=== PATIENT | female | born 1955 | race Caucasian/White ===

== ENCOUNTER 2020-04-27 14:33 | Outpatient (REF) | payer MEDICARE, OTHER, SELFPAY ==
--- NOTE | 2020-04-27 14:46 | MR_ITS ---
EXAMINATION: MR BRAIN WITHOUT CONTRAST CLINICAL INFORMATION: Multiple sclerosis COMPARISON: 06/27/2016 TECHNIQUE: MRI of the brain was obtained using routine sequences without contrast. FINDINGS: Stable distribution of white matter T2 signal abnormalities throughout the supratentorial white matter, most concentrated along the callosal septal interface, extending into the white matter in a perivenular distribution (Savage's fingers), along with some juxtacortical involvement. There is slightly decreased size of a couple white matter signal abnormalities along the left callosal septal interface as seen on series 6, images 19 and 20, and series 5, image 10. No appreciable change in the remainder of the lesions. No infratentorial involvement. No abnormally restricted diffusion within the brain parenchyma. Ventricular system normal in size and configuration. No extra-axial collection. No intracranial blood products. Midline structures are normal. Major flow voids at the skull base are intact. Contents of the posterior fossa are normal. No marrow signal abnormalities. Visualized soft tissues unremarkable. Minimal mucosal thickening present within the ethmoid air cells and bilateral frontal sinuses. IMPRESSION: Again seen are findings compatible with multiple sclerosis. There are couple left pericallosal white matter lesions which appear slightly less conspicuous on the current examination, even accounting for slice selection.
== END 2020-04-27 14:34 | disposition home or self-care (01) ==
LOC: HO.MRI 14:33
PROVIDERS: PCP Internal Medicine; Visit Provider Psychiatry & Neurology Neurology
DX: G35 Multiple sclerosis (principal)
CPT/HCPCS: 70551

== ENCOUNTER 2020-05-28 10:24 | Outpatient (REF) | payer MEDICARE, OTHER, SELFPAY ==
[2020-05-28 14:51] LABS: Free T4 (Free Thyroxine) 0.83 ng/dL (0.71-1.85); Thyroid Stimulating Hormone 4.89 uIU/mL (0.32-4.0)
== END 2020-05-28 10:25 | disposition home or self-care (01) ==
LOC: HO.10HDL 10:24
PROVIDERS: Visit Provider Internal Medicine
DX: E03.9 Hypothyroidism, unspecified (principal)
CPT/HCPCS: 84439; 84443

== ENCOUNTER 2020-08-13 14:39 | Outpatient (REF) | payer MEDICARE, OTHER, SELFPAY ==
[2020-08-13 15:23] LABS: Influenza A PCR NEGATIVE (Negative); Influenza B PCR NEGATIVE (Negative); Resp Syncy Virus RNA Qual PCR NEGATIVE (Negative); SARS COV2 PCR INHOUSE NEGATIVE (Negative)
== END 2020-08-13 14:40 | disposition home or self-care (01) ==
LOC: HO.LNP 14:39
PROVIDERS: Visit Provider Internal Medicine
DX: R05 Cough (principal); R07.89 Other chest pain; Z20.822 Contact with and (suspected) exposure to COVID-19
CPT/HCPCS: 0241U

== ENCOUNTER 2020-08-28 11:51 | Outpatient (REF) | payer MEDICARE, OTHER, SELFPAY ==
[2020-08-28 13:36] LABS: MANUAL DIFF FLAG NO
[2020-08-28 13:52] LABS: Basophils Absolute Auto 0.1 X10*3/uL (0.0-0.2); Eosinophils Absolute Auto 0.2 X10*3/uL (0.0-0.4); Eosinophils Percent Auto 4.6 % (0-4); Hematocrit 40.2 % (37-47); Hemoglobin 13.2 g/dl (12.0-16.0); Imm Gran Abs Auto 0.01 X10*3/uL (0.00-0.03); Imm Gran Pct Auto 0.2 % (0.0-0.4); Lymphocytes Absolute Auto 0.8 X10*3/uL (1.2-4.9); Lymphocytes Percent Auto 17.2 % (20-40); Mean Corpuscular HGB Conc 32.8 g/dl (31.0-35.0); Mean Corpuscular Hemoglobin 31.1 pg (27.0-33.0); Mean Corpuscular Volume 94.6 fL (80-98); Mean Platelet Volume 10.3 fL (9.4-12.3); Monocytes Absolute Auto 0.3 X10*3/uL (0.1-1.2); Neutrophils Absolute Auto 3.4 X10*3/uL (2.0-8.3); Platelet Count 242 X10*3/uL (160-400); Red Blood Count 4.25 X10*6/uL (4.20-5.50); Red Cell Distribution Width 13.3 % (11.0-16.0); White Blood Count 4.8 X10*3/uL (4.8-10.8)
[2020-08-28 14:33] LABS: Alanine Aminotransferase 39 U/L (0-31); Albumin Level 4.5 g/dL (3.5-5.0); Alkaline Phosphatase 74 U/L (39-117); Anion Gap 11 (12-20); Aspartate Amino Transferase 26 U/L (5-31); Bilirubin Total 0.6 mg/dL (0.0-1.0); Blood Urea Nitrogen 21 mg/dL (9-16); Carbon Dioxide 29 mmol/L (22-29); Chloride 107 mmol/L (96-108); Estimated Glomerular Filt Rate > 60; Glucose Random 92 mg/dL (60-115); Potassium 4.1 mmol/L (3.3-5.1); Sodium 143 mmol/L (135-145)
[2020-08-28 14:38] LABS: Thyroid Stimulating Hormone 2.09 uIU/mL (0.32-4.0)
== END 2020-08-28 11:52 | disposition home or self-care (01) ==
LOC: HO.10HDL 11:51
PROVIDERS: Visit Provider Internal Medicine
DX: E03.9 Hypothyroidism, unspecified (principal); G35 Multiple sclerosis; R25.1 Tremor, unspecified
CPT/HCPCS: 36415; 80053; 84439; 84443; 85025

== ENCOUNTER 2020-09-04 10:10 | Day surgery (SDC) | payer MEDICARE, OTHER, SELFPAY ==
[2020-08-28 14:58] VITALS: BMI 41.4
[2020-09-01 10:02] VITALS: BMI 41.4
--- NOTE | 2020-09-03 10:30 | HO.ANESPROP2 ---
Documented by User: Dina Wells 09/03/20 10:31 HPI - Anesthesia Eval Consult details Narrative: 65yo F for Colonoscopy [facility] Past Medical History Medical History Arthritis Asthma Back pain Bronchitis Cough Depression GERD (gastroesophageal reflux disease) History of postoperative nausea Hx of degenerative disc disease Hx of fall Hx of motion sickness Multiple sclerosis Sleep apnea Thyroid disease Surgical History Surgical History H/O colonoscopy Hx of appendectomy Hx of dilation and curettage Hx of hysterectomy Hx of tonsillectomy Social History Social History (Updated 09/01/20 @ 10:10 by Darshana Aquino) Are you a primary home health care social worker to a significant other at home: No Do you presently have visiting nurse or other home services: No Smoking Status: Former smoker Smoked in Last 30 Days: No Smoking Quit Date: 1985 Use of substances other than those prescribed or required for medical reasons: No Have you been hit, kicked, punched, or otherwise hurt by someone within the past year? If so, by whom?: No Advance Directives Information Provided: No Recently lost weight without trying: No Meds Allergies Allergy/AdvReac Type Severity Reaction Status Date / Time erythromycin base Allergy Severe Nausea and Verified 09/01/20 10:10 Vomiting Penicillins Allergy Severe Anaphylaxis Verified 09/01/20 10:10 ivory soap AdvReac Intermediate skin Uncoded 09/01/20 10:11 sloughing Home Medications Medication Instructions Recorded Confirmed Last Taken Type bupropion HCl 150 mg PO BID 08/28/20 08/28/20 Unknown History cyclobenzaprine 10 mg PO BEDTIME PRN 08/28/20 08/28/20 Unknown History escitalopram oxalate 20 mg PO QAM 08/28/20 08/28/20 Unknown History gabapentin 300 mg PO BID 08/28/20 08/28/20 Unknown History levothyroxine 50 mcg PO DAILY 08/28/20 09/04/20 09/04/20 10:00 History multivitamin 1 tab PO DAILY 08/28/20 08/28/20 Unknown History trazodone 50 mg PO BEDTIME PRN 08/28/20 08/28/20 Unknown History Exam Exam Date and Time: September 03, 2020 1030 Height,Weight and Vital Signs: Height 5 ft 3 in Weight 106.141 kg Pertinent Lab Results Pertinent Lab Results: Laboratory Tests 08/28/20 08/28/20 12:00 12:00 WBC 4.8 Hgb 13.2 Hct 40.2 Plt Count 242 Sodium 143 Potassium 4.1 Chloride 107 Carbon Dioxide 29 BUN 21 H Creatinine 0.90 Assessment and Plan Assessment Anesthesia Assessment: Chart Reviewed Documented by User: Leonor Rojas 09/04/20 10:58 PMF Past Medical History Medical History Arthritis Asthma Back pain Bronchitis Cough Depression GERD (gastroesophageal reflux disease) History of postoperative nausea Hx of degenerative disc disease Hx of fall Hx of motion sickness Multiple sclerosis Sleep apnea Thyroid disease Surgical History Surgical History H/O colonoscopy Hx of appendectomy Hx of dilation and curettage Hx of hysterectomy Hx of tonsillectomy Social History Social History (Updated 09/01/20 @ 10:10 by Darshana Aquino) Are you a primary home health care social worker to a significant other at home: No Do you presently have visiting nurse or other home services: No Smoking Status: Former smoker Smoked in Last 30 Days: No Smoking Quit Date: 1985 Use of substances other than those prescribed or required for medical reasons: No Have you been hit, kicked, punched, or otherwise hurt by someone within the past year? If so, by whom?: No Advance Directives Information Provided: No Recently lost weight without trying: No Meds Allergies Allergy/AdvReac Type Severity Reaction Status Date / Time erythromycin base Allergy Severe Nausea and Verified 09/01/20 10:10 Vomiting Penicillins Allergy Severe Anaphylaxis Verified 09/01/20 10:10 ivory soap AdvReac Intermediate skin Uncoded 09/01/20 10:11 sloughing Home Medications Medication Instructions Recorded Confirmed Last Taken Type bupropion HCl 150 mg PO BID 08/28/20 08/28/20 Unknown History cyclobenzaprine 10 mg PO BEDTIME PRN 08/28/20 08/28/20 Unknown History escitalopram oxalate 20 mg PO QAM 08/28/20 08/28/20 Unknown History gabapentin 300 mg PO BID 08/28/20 08/28/20 Unknown History levothyroxine 50 mcg PO DAILY 08/28/20 09/04/20 09/04/20 10:00 History multivitamin 1 tab PO DAILY 08/28/20 08/28/20 Unknown History trazodone 50 mg PO BEDTIME PRN 08/28/20 08/28/20 Unknown History Exam Airway Mallampati Class: I TM Dist: >3cm Neck ROM: Full Denture: Upper Loose/Missing/Broken Teeth: Yes (Edentullus upper) Heart: RRR Lungs: CTA Assessment and Plan Assessment Anesthesia Assessment: Anesthesia Plan Discussed and Chart Reviewed Final Anesthetic Review NPO: Yes ASA Class: III Final Preanesthetic Review: Meds/Allgs Chart Reviewed, Consent Obtained/Reviewed and Anes Risks/Benef Reviewed Patient Risk: Intermediate Procedure Risk: Low Anesthetic Plan Anesthetic Plan: MAC: Disposition: Standard PACU
[2020-09-04 10:42] VITALS: BP 142/92; PULSE 76; RESP 16; TEMP 36.1; O2SAT 95
[2020-09-04] MEDS: Lactated Ringers 1,000 ML 100 ML IVCONT (10:48)
[2020-09-04 12:38] VITALS: BP 128/71; PULSE 64; RESP 16; TEMP 36; O2SAT 97
--- NOTE | 2020-09-04 12:42 | PM.OP ---
Brief Operative Note Date of Service: 09/04/20 Pre-op diagnosis: Screening Post-op diagnosis: other (Diverticulosis, Internal hemorrhoids) Procedure: Colonoscopy to the cecum and TI Surgeon: Moe Christianson Anesthesia: MAC Estimated blood loss (mL): 0 Pathology: none sent Condition: stable Disposition: PACU
[2020-09-04 12:53] VITALS: BP 113/62; PULSE 63; RESP 12; TEMP 36; O2SAT 96
--- NOTE | 2020-09-04 13:06 | OP_ITS ---
SURGEON: Moe hCristianson MD INDICATIONS: The patient presents for evaluation of colorectal cancer screening, previous history of tubular adenoma of the colon, and family history of colon cancer. Full consent was obtained from her for this, including risks of bleeding and perforation. PREOPERATIVE DIAGNOSIS: POSTOPERATIVE DIAGNOSIS: PROCEDURE PERFORMED: Colonoscopy to cecum and terminal ileum. ESTIMATED BLOOD LOSS: COMPLICATIONS: ANESTHESIA: Monitored anesthesia care. ASSISTANTS: SPECIMENS: PREOPERATIVE DIAGNOSES: Colorectal cancer screening, personal history of tubular adenoma of the colon, and family history of colon cancer. POSTOPERATIVE DIAGNOSES: Colorectal cancer screening, personal history of tubular adenoma of the colon, family history of colon cancer, diverticulosis, and internal hemorrhoids. DESCRIPTION OF PROCEDURE: The patient was placed in the left lateral decubitus position. The digital rectal exam revealed no abnormalities. The Olympus video pediatric colonoscope was entered into the rectum and advanced to the cecum with the assistance of abdominal wall pressure. Once in the cecum, I did identify normal-appearing cecal pouch with appendiceal orifice and a normal-appearing ileocecal valve. The terminal ileum was cannulated and it appeared normal. The scope was withdrawn back in the colon. The entire cecum and ileocecal valve appeared normal. The scope was slowly withdrawn assessing all mucosal surfaces carefully. Preparation was excellent. I did not visualize any sign of polyps, colitis, or angiodysplasia. There was a mild amount of sigmoid diverticulosis. In the rectum, the scope was retroflexed visualizing internal hemorrhoids, but no other pathology. The rectal mucosa appeared normal. The scope was straightened and withdrawn from the patient. She tolerated the procedure well and was returned to the recovery area in stable condition. IMPRESSION: 1. Diverticulosis. 2. Internal hemorrhoids. PLAN: Given her previous history and family history, I would recommend a followup colonoscopy in 5 years for further screening. She will otherwise see me on a p.r.n. basis. Moe Christianson MD RMW/PRAVEENL / [id number]
== END 2020-09-04 13:41 | disposition home or self-care (01) ==
PROVIDERS: PCP Internal Medicine; Visit Provider Internal Medicine
PROC: 0DJD8ZZ Inspection of Lower Intestinal Tract, Via Natural or Artificial Opening Endoscopic (ICD-10-PCS; CPT 45378; principal; 2020-09-04 11:10)
DX: Z12.11 Encounter for screening for malignant neoplasm of colon (principal); Z86.010 Personal history of colon polyps; Z80.0 Family history of malignant neoplasm of digestive organs; K57.30 Diverticulosis of large intestine without perforation or abscess without bleeding; K64.8 Other hemorrhoids; K21.9 Gastro-esophageal reflux disease without esophagitis; G35 Multiple sclerosis; J45.909 Unspecified asthma, uncomplicated; G47.30 Sleep apnea, unspecified; F32.9 Major depressive disorder, single episode, unspecified; Z87.891 Personal history of nicotine dependence; Z79.899 Other long term (current) drug therapy
CPT/HCPCS: G0105

== ENCOUNTER 2020-11-27 12:40 | Outpatient (REF) | payer MEDICARE, OTHER, SELFPAY ==
[2020-11-27 13:58] LABS: MANUAL DIFF FLAG NO
[2020-11-27 14:03] LABS: Basophils Percent Auto 0.9 % (0-2); Eosinophils Absolute Auto 0.4 X10*3/uL (0.0-0.4); Eosinophils Percent Auto 7.9 % (0-4); Hematocrit 38.5 % (37-47); Imm Gran Abs Auto 0.01 X10*3/uL (0.00-0.03); Imm Gran Pct Auto 0.2 % (0.0-0.4); Lymphocytes Percent Auto 22.7 % (20-40); Mean Corpuscular HGB Conc 33.8 g/dl (31.0-35.0); Mean Corpuscular Hemoglobin 30.9 pg (27.0-33.0); Mean Corpuscular Volume 91.4 fL (80-98); Mean Platelet Volume 10.6 fL (9.4-12.3); Monocytes Absolute Auto 0.3 X10*3/uL (0.1-1.2); Neutrophils Absolute Auto 2.8 X10*3/uL (2.0-8.3); Neutrophils Percent Auto 61.3 % (45-73); Platelet Count 209 X10*3/uL (160-400); Red Blood Count 4.21 X10*6/uL (4.20-5.50); Red Cell Distribution Width 12.9 % (11.0-16.0); White Blood Count 4.5 X10*3/uL (4.8-10.8)
[2020-11-27 14:36] LABS: Alanine Aminotransferase 25 U/L (0-31); Albumin Level 4.4 g/dL (3.5-5.0); Alkaline Phosphatase 69 U/L (39-117); Anion Gap 12 (12-20); Aspartate Amino Transferase 18 U/L (5-31); Bilirubin Total 0.6 mg/dL (0.0-1.0); Blood Urea Nitrogen 24 mg/dL (9-16); C Reactive Protein 0.88 mg/dL (< or = 0.50); Calcium 9.3 mg/dL (8.4-10.2); Carbon Dioxide 28 mmol/L (22-29); Chloride 105 mmol/L (96-108); Estimated Glomerular Filt Rate > 60; Glucose Random 88 mg/dL (60-115); Potassium 4.1 mmol/L (3.3-5.1); Sodium 141 mmol/L (135-145); Total Protein 6.6 g/dL (6.5-8.0)
[2020-11-27 14:41] LABS: Free T4 (Free Thyroxine) 1.07 ng/dL (0.71-1.85); Thyroid Stimulating Hormone 0.96 uIU/mL (0.32-4.0)
== END 2020-11-27 12:41 | disposition home or self-care (01) ==
LOC: HO.10HDL 12:40
PROVIDERS: Visit Provider Internal Medicine
DX: E03.9 Hypothyroidism, unspecified (principal); R19.7 Diarrhea, unspecified; M54.9 Dorsalgia, unspecified; G35 Multiple sclerosis
CPT/HCPCS: 36415; 80053; 84439; 84443; 85025; 86140

== ENCOUNTER 2020-12-22 10:32 | Outpatient (REF) | payer MEDICARE, OTHER, SELFPAY ==
--- NOTE | ~2020-12-22 | XR_ITS ---
EXAMINATION: XR KNEE, LEFT CLINICAL INFORMATION: Left knee pain. COMPARISON: Left knee radiographs dated 09/18/2015. TECHNIQUE: Four views of the left knee. FINDINGS: Mild medial compartment joint space narrowing with tiny marginal osteophytes, unchanged. No acute fracture or dislocation. No osseous erosion. No significant joint effusion. No abnormal soft tissue calcification. XR/XR knee LT 4V IMPRESSION: Mild medial compartment arthrosis, unchanged.
--- NOTE | ~2020-12-22 | XR_ITS ---
EXAMINATION: XR LUMBOSACRAL SPINE CLINICAL INFORMATION: Back pain. COMPARISON: Lumbar spine MRI dated 11/28/2015. TECHNIQUE: Three views of the lumbosacral spine. FINDINGS: Mild levocurvature of the lumbar spine. The lumbar lordosis is maintained. No acute fracture or subluxation. No loss of vertebral body height. Multilevel loss of intervertebral disc height with anterior endplate osteophytes, most prominent at L3-L4 and L4-L5. Prominent multilevel bilateral facet arthropathy. No lytic or blastic osseous lesion. Atherosclerotic calcifications. XR/XR lumbar spine 2-3V IMPRESSION: Moderate multilevel degenerative disc disease and bilateral facet arthropathy, most prominent at L3-L4 and L4-L5. Findings have progressed when compared to the prior MRI.
== END 2020-12-22 10:33 | disposition home or self-care (01) ==
LOC: HO.XRAY 10:32
PROVIDERS: PCP Internal Medicine; Visit Provider Internal Medicine
DX: M54.9 Dorsalgia, unspecified (principal); M25.562 Pain in left knee
CPT/HCPCS: 72100; 73564

== ENCOUNTER 2020-12-24 16:42 | Outpatient (REF) | payer MEDICARE, OTHER, SELFPAY ==
--- NOTE | ~2020-12-24 | MR_ITS ---
MR LUMBAR SPINE WITHOUT IV CONTRAST CLINICAL INFORMATION: Back pain. Degenerative disc disease on MRI 5 years ago, worse on x-ray. COMPARISON: Lumbar spine radiographs 12/22/2020 and lumbar spine MRI 11/28/2015. TECHNIQUE: MRI of the lumbar spine was obtained using routine sequences without contrast. FINDINGS: There are 5 nonrib-bearing lumbar-type vertebral bodies. Lumbar alignment is normal. The vertebral body heights are maintained. There is moderate to severe disc volume loss at L4-L5. There is disc desiccation at all lumbar levels. There are Modic type I endplate signal changes at L3-L4 and L4-L5. There is no additional bone marrow edema. There are no acute fractures. Conus terminates at the L1-L2 level. L1-L2: Diffuse annular disc bulge with a superimposed shallow central disc protrusion that mildly indents the ventral thecal sac. No foraminal stenosis. L2-L3: Diffuse annular disc bulge and mild bilateral facet arthropathy. No central canal stenosis and no foraminal stenosis. L3-L4: Diffuse annular disc bulges in part disc osteophyte and moderate bilateral facet arthropathy. A shallow right paracentral disc protrusion continues to contact the traversing right L4 nerve root within the right subarticular zone. No central canal stenosis. Mild foraminal encroachment bilaterally unchanged. L4-L5: A left paracentral/left lateral disc protrusion that is in part disc osteophyte continues to result in mass effect on the traversing left L5 nerve root within the left subarticular zone and along with progressive advanced facet arthropathy results in worsening moderate to severe left foraminal stenosis with compression of the exiting left L4 nerve root. L5-S1: There is a left paracentral/left lateral disc protrusion that increasingly compresses a congenitally conjoined left L5-S1 nerve root within the left L5-S1 subarticular zone and within the severely stenotic proximal left L5-S1 neural foramen. No central canal and no right foraminal stenosis. MR/MR lumbar spine wo con IMPRESSION: - At L3-L4, a shallow right paracentral disc protrusion continues to contact the traversing right L4 nerve root within the right subarticular zone. - At L4-L5, a left paracentral/left lateral disc protrusion that is in part disc osteophyte continues to result in mass effect on the traversing left L5 nerve root within the left subarticular zone and along with progressive advanced facet arthropathy results in worsening moderate to severe left foraminal stenosis with compression of the exiting left L4 nerve root. - At L5-S1, a left paracentral/left lateral disc protrusion increasingly compresses a congenitally conjoined left L5-S1 nerve root within the left L5-S1 subarticular zone and within the severely stenotic proximal left L5-S1 neural foramen.
== END 2020-12-24 16:43 | disposition home or self-care (01) ==
LOC: HO.MRI 16:42
PROVIDERS: Visit Provider Internal Medicine
DX: M54.9 Dorsalgia, unspecified (principal)
CPT/HCPCS: 72148

== ENCOUNTER 2021-04-15 12:38 | Outpatient (REF) | payer MEDICARE, OTHER, SELFPAY ==
[2021-04-15 13:51] LABS: MANUAL DIFF FLAG NO
[2021-04-15 14:01] LABS: Basophils Absolute Auto 0.1 X10*3/uL (0.0-0.2); Basophils Percent Auto 1.1 % (0-2); Eosinophils Absolute Auto 0.2 X10*3/uL (0.0-0.4); Eosinophils Percent Auto 5.2 % (0-4); Hematocrit 37.5 % (37-47); Hemoglobin 12.8 g/dl (12.0-16.0); Imm Gran Abs Auto 0.01 X10*3/uL (0.00-0.03); Imm Gran Pct Auto 0.2 % (0.0-0.4); Lymphocytes Absolute Auto 1.2 X10*3/uL (1.2-4.9); Lymphocytes Percent Auto 26.5 % (20-40); Mean Corpuscular HGB Conc 34.1 g/dl (31.0-35.0); Mean Corpuscular Hemoglobin 31.4 pg (27.0-33.0); Mean Corpuscular Volume 91.9 fL (80-98); Mean Platelet Volume 10.6 fL (9.4-12.3); Monocytes Absolute Auto 0.3 X10*3/uL (0.1-1.2); Monocytes Percent Auto 6.3 % (2-11); Neutrophils Absolute Auto 2.7 X10*3/uL (2.0-8.3); Neutrophils Percent Auto 60.7 % (45-73); Platelet Count 208 X10*3/uL (160-400); Red Blood Count 4.08 X10*6/uL (4.20-5.50); Red Cell Distribution Width 13.3 % (11.0-16.0); White Blood Count 4.4 X10*3/uL (4.8-10.8)
[2021-04-15 14:33] LABS: Alanine Aminotransferase 16 U/L (0-31); Albumin Level 4.4 g/dL (3.5-5.0); Alkaline Phosphatase 69 U/L (39-117); Anion Gap 12 (12-20); Aspartate Amino Transferase 16 U/L (5-31); Bilirubin Total 0.7 mg/dL (0.0-1.0); Blood Urea Nitrogen 24 mg/dL (9-16); Calcium 9.4 mg/dL (8.4-10.2); Carbon Dioxide 27 mmol/L (22-29); Chloride 105 mmol/L (96-108); Estimated Glomerular Filt Rate > 60; Glucose Random 85 mg/dL (60-115); Potassium 4.2 mmol/L (3.3-5.1); Sodium 140 mmol/L (135-145); Total Protein 6.8 g/dL (6.5-8.0)
[2021-04-15 14:56] LABS: Free T4 (Free Thyroxine) 1.05 ng/dL (0.71-1.85); Thyroid Stimulating Hormone 1.19 uIU/mL (0.32-4.0)
== END 2021-04-15 12:39 | disposition home or self-care (01) ==
LOC: HO.10HDL 12:38
PROVIDERS: Visit Provider Internal Medicine
DX: Z01.818 Encounter for other preprocedural examination (principal); E03.9 Hypothyroidism, unspecified
CPT/HCPCS: 36415; 80053; 84439; 84443; 85025

== ENCOUNTER 2021-04-30 08:00 | Outpatient (RCR) | payer MEDICARE, OTHER, SELFPAY ==
--- NOTE | 2021-03-30 10:56 | MHC.PT.EP ---
[facility] [place] [facility] [place] [facility] [place] [facility] [address] Luis Alberto Quezada [address] [phone] F: [phone] F: [phone] F: [phone] F: [phone] Physical Therapy Plan of Care Date of Evaluation: Date of Surgery: no back surg Diagnosis: LBP, spinal stenosis Assessment: The patient arrived reporting low back pain, severe numnbess, tingling, and leg pain that occurs intermittently. She reports consistent urinary incontinence that occurs daily and is worse with stress ( coughing, laughing, sneezing) She wears some protection against UI when she leaves the house. The patient demonstrates poor mechanics for bed mobility, sitting, bending, lifting posture. She also has decreased ankle DF that causes decreased toe clearance during walking. She is a good candidate for skilled PT. Frequency and Duration: The patient will be seen 2x/week x 4 weeks. Short Term Goals: 1. Pt to be able to correctly activate her PFM to allow improved support to bowel and bladder. 2. Pt to be able to demonstrate a pre contraction before a cough 3.The patient to demonstrate proper lifting mechanics for household chore activities to show improved functional mobility. [employer] Goals: 1. Pt to reduce # of episodes of KONRAD during the day by 50% to help improve quality of life and reduce pad usage. 2. Pt to be independent with her final HEP for PFM in order to help maintain gains made in therapy. 3. pt to be able to do all functional movements such as squatting, bending, and reaching overhead with good balance and motor control.. Treatment Plan: Modalities to reduce pain, spasms and effusion. Manual therapy to restore motion and function. Therapeutic exercise to improve strength and flexibility. Neuromuscular re-education for posture and balance. Therapeutic activities to return to functional activities of daily living. Electronically signed by: Corinna Lopez PT DPT Please sign and return to therapist. Thank you for your referral.
== END 2021-04-30 12:47 | disposition home or self-care (01) ==
LOC: HO.PT 08:00
PROVIDERS: PCP Internal Medicine; Visit Provider Internal Medicine
DX: M48.061 Spinal stenosis, lumbar region without neurogenic claudication (principal)
CPT/HCPCS: 97110; 97112; 97163; 97530

== ENCOUNTER 2021-06-11 16:23 | Inpatient (IN) | payer MEDICARE, OTHER, SELFPAY ==
--- NOTE | ~2021-06-11 | XR_ITS ---
EXAMINATION: XR CHEST CLINICAL INFORMATION: Enteric tube placement. COMPARISON: CT abdomen/pelvis done earlier today at 7:11 PM (06/11/2021). TECHNIQUE: AP view of the chest was obtained. FINDINGS: The side port of the enteric tube terminates at the level of the gastroesophageal junction. The tip terminates within the proximal stomach. Normal cardiomediastinal silhouette. Clear lungs. No pleural effusion or pneumothorax. No acute osseous findings. XR/XR chest 1V IMPRESSION: The side-port of the enteric tube appears to project over the lower esophagus/gastroesophageal junction. Recommend advancement.
--- NOTE | ~2021-06-11 | XR_ITS ---
EXAMINATION: XR FOOT, RIGHT CLINICAL INFORMATION: Big toe pain COMPARISON: April 25, 2014 TECHNIQUE: Three-view of the right foot. FINDINGS: There is no evidence of acute fracture or dislocation of the right foot. There appears to be some soft tissue prominence dorsally about the metatarsophalangeal joints. Calcaneal spurs are seen sites of insertion of Achilles and plantar tendons. There appear to be some target lesions involving the dorsal aspects of the navicular. There is a region of diminished bone density within the diaphysis of the first proximal phalanx. No periosteal reaction is identified and no destructive or expansile lesion is seen. This appearance was present on prior study of April 25, 2014. XR/XR foot RT 2V IMPRESSION: Calcaneal spurs. No significant bony abnormality of the right first toe identified.
--- NOTE | ~2021-06-11 | CT_ITS ---
EXAMINATION: CT ABDOMEN AND PELVIS WITHOUT CONTRAST CLINICAL INFORMATION: Abdominal pain, severe tenderness with nausea and vomiting COMPARISON: CT of the abdomen and pelvis 06/16/2017 TECHNIQUE: Multidetector volumetric imaging was performed from the superior aspect of the liver through the pubic symphysis. Sagittal and coronal reformatted images were obtained on the technologist's workstation. This CT examination was performed using dose optimization techniques as appropriate, variously including the following: *Automated exposure control *Adjustment of mA and/or kV according to patient size (this includes techniques or standardized protocols for targeted exams where dose is matched to indication/reason for exam; i.e. extremities or head) *Use of iterative reconstruction technique DLP: 641 mGy-cm FINDINGS: LUNG BASES: The visualized lung bases are unremarkable. LIVER, GALLBLADDER, AND BILIARY TREE: The liver is normal in size, shape, and attenuation. No focal hepatic lesion or biliary ductal dilatation is present. The gallbladder is unremarkable with no evidence of radiopaque gallstones, gallbladder wall thickening, or obvious pericholecystic inflammatory changes. PANCREAS: Unremarkable. SPLEEN: Unremarkable. ADRENAL GLANDS: Unremarkable. KIDNEYS AND URETERS: The kidneys are normal in size, shape, and attenuation. No hydronephrosis, hydroureter, or calculi seen. No perinephric stranding. BLADDER: Unremarkable. GASTROINTESTINAL TRACT: The stomach is normal in appearance. There is dilatation of the proximal small bowel extending to the mid lower abdomen, where there is smooth tapering (series 3, image 54 and series 5, image 33), beyond which there is relative decompression of the distal small bowel loops and colon. There is diverticulosis of the descending and sigmoid colon without evidence of diverticulitis. ABDOMINAL WALL: No significant hernia is appreciated. LYMPH NODES: Normal. VASCULAR: Normal caliber of the abdominal aorta. Scattered atherosclerotic calcifications. PELVIC VISCERA: The uterus is smaller may have been removed. No adnexal mass. OSSEOUS STRUCTURES: No acute or suspicious osseous abnormality. Multilevel degenerative changes of the spine. CT/CT abdomen pelvis wo con IMPRESSION: Dilated loops of proximal small bowel extending to the mid lower abdomen, with a smooth transition point in the mid lower abdomen findings are concerning for high-grade small bowel obstruction, which however may be partial, considering the smooth tapering and long transition point. No evidence for perforation or abscess formation. This critical result was discussed with BALBINA Maldonado at 7:57 PM on 06/11/2021 and it was ascertained that the content and urgency of the report was understood at the time of direct communication. Additional chronic findings as above.
--- NOTE | ~2021-06-11 | XR_ITS ---
EXAMINATION: XR ABDOMEN KUB CLINICAL INDICATION: Evaluate bowel obstruction. COMPARISON: CT abdomen and pelvis from 06/11/2021. TECHNIQUE: AP view of the abdomen. FINDINGS: The tip of the enteric tube is located in the region of the gastric body. Bowel gas is observed to the level of the rectum. Within the mid to upper abdomen, a mildly dilated small bowel loop is 3.4 cm diameter. The loops of small bowel measured up to approximately 3.8 cm maximum AP dimension on 06/11/2021. There is no contrast within small bowel. Instead, the administered contrast is within the colon, extending to the level of the rectum. No pneumoperitoneum. XR/XR KUB IMPRESSION: Findings suggest interval improvement of a partial small bowel obstruction. Although mildly dilated small bowel loop is seen, the administered contrast has traveled through the small bowel and is located in the nondilated colon.
[2021-06-11 16:32] VITALS: BP 137/69; PULSE 81; RESP 18; TEMP 36.8; O2SAT 100; BMI 33.5
--- NOTE | 2021-06-11 18:05 | ECG_ITS ---
Test Reason : VOMITING ARM PAIN Blood Pressure : / mmHG Vent. Rate : 071 BPM Atrial Rate : 071 BPM P-R Int : 178 ms QRS Dur : 084 ms QT Int : 442 ms P-R-T Axes : 049 -02 049 degrees QTc Int : 480 ms Normal sinus rhythm Minimal voltage criteria for LVH, may be normal variant ( R in aVL ) Nonspecific T wave abnormality Prolonged QT Abnormal ECG When compared with ECG of 22-MAY-2019 13:09, Nonspecific T wave abnormality now evident in Anterior leads T wave amplitude has decreased in Anterolateral leads Referred By: Raya Beebe Electronically Signed By:DARY EASTMAN MD
--- NOTE | 2021-06-11 18:09 | ED_ITS ---
HPI - Abdominal Pain General Chief Complaint: Abdominal Pain Stated Complaint: Vomiting Time Seen by Provider: 06/11/21 18:05 Source: patient Mode of arrival: ambulatory Limitations: no limitations History of Present Illness HPI narrative: 65 y/o female with history of diverticulosis, hemorrhoids, depression, GERD, multiple sclerosis, hypothyroidism, asthma, history of bronchitis and pneumonia, history of cervical cancer status post hysterectomy, status post appendectomy who presents to the ER with epigastric abdominal pain that started yesterday associated with nausea and vomiting. She states the pain started at 9pm. She states her and her have been dieting for quite some time and lost about 30 lb recently. Yesterday was there big ?cheat day.? She was complaining of overeating and feeling like she ate too much after their big turkey dinner. Around 21:00 the pain acutely worsened and she was very nauseous. She states she did not sleep a lot of the night because of the pain. Today she started with several episodes of vomiting. The vomitus was brown with no blood. She had 2 episodes of diarrhea as she was vomiting and it ?came out both ends. ? She has had no fever or chills. She is still nauseated and having significant abdominal pain, pain is mostly in the middle of her abdomen. Her concern to come in to the ER for evaluation today as he was concerned for dehydration. She was complaining of lower leg cramping which she has had before when her electrolytes were deranged. MD elicited complaint: abdominal pain Pertinent past history: none Onset (ago): day(s) (1) Location: epigastric and periumbilical Severity: moderate Pain scale (0-10): 7 Quality: stabbing Radiation: none Migration to: no migration Exacerbating factors: eating Relieving factors: nothing Context: recent surgery/procedure (lumbar back surgery 1 month ago) Associated symptoms: nausea, vomiting and diarrhea (2 episodes today) Related Data Home Medications Medication Instructions Recorded Confirmed bupropion HCl 150 mg tablet,12 hr 150 mg PO BID 08/28/20 06/11/21 sustained-release cyclobenzaprine 10 mg tablet 10 mg PO BEDTIME PRN 08/28/20 06/11/21 gabapentin 300 mg capsule 300 mg PO DAILY 08/28/20 06/11/21 multivitamin 1 tab PO DAILY 08/28/20 06/11/21 trazodone 50 mg tablet 50 mg PO BEDTIME PRN 08/28/20 06/11/21 gabapentin 300 mg capsule 1,200 mg PO BEDTIME 06/11/21 06/11/21 levothyroxine 75 mcg tablet 1 tab PO SUTUWETHSA@0600 06/11/21 06/11/21 levothyroxine 75 mcg tablet 1.5 tab PO MOFR@0630 06/11/21 06/11/21 Allergies Allergy/AdvReac Type Severity Reaction Status Date / Time erythromycin base Allergy Severe Nausea and Verified 06/11/21 16:31 Vomiting Penicillins Allergy Severe Anaphylaxis Verified 06/11/21 16:31 bee pollen [bee stings] AdvReac Swelling Verified 06/11/21 16:31 ivory soap AdvReac Intermediate skin Uncoded 09/01/20 10:11 sloughing Review of Systems Review of Systems Constitutional: No Fever, No Chills ENT/Mouth: No sore throat, No Rhinorrhea, No Swallowing Difficulty Cardiovascular: No Chest Pain, No SOB, No Orthopnea, No Edema Respiratory: No Cough, No Sputum, No Wheezing, No dyspnea Gastrointestinal: + Nausea, + Vomiting, + Diarrhea,+ abdominal Pain, No Hematochezia, No Melena Genitourinary: No Dysuria, No Urinary Frequency, No Hematuria Musculoskeletal: No joint pain, No Myalgias Skin: No Skin Lesions, No rash Neuro: No Weakness, No Numbness, No Dizziness, No Headache Psych: No Anxiety/Panic, No Depression Heme/Lymph: No Bruising, No Lymphadenopathy Endocrine: No Polyuria, No Polydipsia Physical Exam Vital Signs: Vital Signs: Last Vital Signs Temp 98.2 F 06/11/21 16:32 Pulse 81 06/11/21 16:32 Resp 18 06/11/21 16:32 BP 137/69 06/11/21 16:32 Pulse Ox 100 06/11/21 16:32 Body Mass Index 33.5 Appearance: Alert. Oriented X3. Appears uncomfortable no active vomiting. Eyes: Pupils equal, round and reactive to light. ENT: Pharynx normal. Neck: Normal inspection. Neck supple. CVS: Normal heart rate and rhythm. Pulses normal. Respiratory: No respiratory distress. Breath sounds normal. Abdomen: Softly distended, diffusely tende with guarding centrally, decreased +BS x4 Skin: Skin warm and dry. Normal skin color. Normal skin turgor. No rashes. Extremities: No lower extremity edema. Neuro: Oriented X 3. No motor deficit. No sensory deficit. Course Course Course Narrative: 65-year-old female with history of MS, asthma, GERD, diverticulosis, hemorrhoids, history of hysterectomy and appendectomy in the past presenting to the ER with acute onset of epigastric and central abdominal pain along with nausea and vomiting. She is diffusely tender on exam with decreased bowel sounds. Will get a CT scan for further evaluation. Will check metabolic workup and give her IV fluids and Zofran now. Reevaluation(s) Reevaluation #1: Patient feeling better after Zofran. No further vomiting. Labs are unremarkable. No leukocytosis. Her renal function is normal. Her BUN is elevated, consistent with mild dehydration. Her LFTs are normal. Lipase is normal. Her CT scan is showing a high-grade small-bowel obstruction, this may be partial with a smooth in lung transition point. Patient will require admission to the hospital for further management. Will plan to place an NG tube for decompression. Dr. Talley has been contacted and is in agreement with admission. Reevaluation #2: Several attempts were made and G-tube insertion with ultimate success. Chest x-ray/KUB is pending to confirm placement. A few 100 cc of bilious output has already been drain. Patient required IV Ativan for the procedure, she tolerated it well and is doing better no the tube is in place. Patient admitted to surgery service for management of SBO. Consultations Consultation #1: General surgery MDM - Abdominal Pain Lab Data Result diagrams: 06/11/21 18:38 06/11/21 18:38 Labs: Lab Results 06/11/21 06/11/21 06/11/21 Range/Units 18:38 18:38 18:38 WBC 10.6 (4.8-10.8) X10*3/uL RBC 4.82 (4.20-5.50) X10*6/uL Hgb 15.0 (12.0-16.0) g/dl Hct 44.0 (37.0-47.0) % MCV 91.3 (80.0-98.0) fL MCH 31.1 (27.0-33.0) pg MCHC 34.1 (31.0-35.0) g/dl RDW 13.2 (11.0-16.0) % Plt Count 232 (160-400) X10*3/uL MPV 10.0 (9.4-12.3) fL Immature Gran % (Auto) 0.2 (0.0-0.4) % Neut % (Auto) 88.0 H (45-73) % Lymph % (Auto) 7.8 L (20-40) % [place] % (Auto) 3.2 (2-11) % Eos % (Auto) 0.4 (0-4) % Baso % (Auto) 0.4 (0-2) % Lymph # (Auto) 0.8 L (1.2-4.9) X10*3/uL [place] # (Auto) 0.3 (0.1-1.2) X10*3/uL Eos # (Auto) 0.0 (0.0-0.4) X10*3/uL Baso # (Auto) 0.0 (0.0-0.2) X10*3/uL Abs Immat Gran (auto) 0.02 (0.00-0.03) X10*3/uL Absolute Neuts (auto) 9.4 H (2.0-8.3) x10*3/uL Absolute Nucleated RBC 0.000 (0.0-0.012) X10*3/uL Nucleated RBC % (auto) 0.0 (0.0-0.2) /100WBC Sodium 144 (135-145) mmol/L Potassium 3.9 (3.3-5.1) mmol/L Chloride 105 (96-108) mmol/L Carbon Dioxide 26 (22-29) mmol/L Anion Gap 17 (12-20) BUN 26 H (9-16) mg/dL Creatinine 0.84 (0.5-1.4) mg/dL Estim Creat Clear Calc 67.4 Estimated GFR > 60 Random Glucose 131 H (60-115) mg/dL Calcium 9.9 (8.4-10.2) mg/dL Magnesium 2.3 (1.6-2.6) mg/dL Total Bilirubin 0.9 (0.0-1.0) mg/dL Direct Bilirubin 0.4 (0.0-0.5) mg/dL AST 19 (5-31) U/L ALT 19 (0-31) U/L Alkaline Phosphatase 84 D (39-117) U/L Total Protein 8.2 H D (6.5-8.0) g/dL Albumin 5.1 H (3.5-5.0) g/dL Lipase 8 (8-78) U/L COVID-19 (IRAJ) Negative (Negative) COVID-19 Clin Com See Note Discharge Plan Discharge Clinical Impression: SBO (small bowel obstruction) Patient Disposition: Admitted As Inpatient Prescriptions: No Action multivitamin Tablet 1 tab PO DAILY RF: 0 cyclobenzaprine 10 mg tablet 10 mg PO BEDTIME PRN (Reason: Muscle Spasm) RF: 0 bupropion HCl 150 mg tablet sustained-release 12 hr 150 mg PO BID RF: 0 trazodone 50 mg tablet 50 mg PO BEDTIME PRN (Reason: Insomnia) RF: 0 gabapentin 300 mg capsule 300 mg PO DAILY RF: 0 levothyroxine 75 mcg tablet 1 tab PO SUTUWETHSA@0600 RF: 0 levothyroxine 75 mcg tablet 1.5 tab PO MOFR@0630 RF: 0 gabapentin 300 mg capsule 1,200 mg PO BEDTIME RF: 0 PMFSH Past Medical History Medical History Arthritis Asthma Back pain Bronchitis Cough Depression GERD (gastroesophageal reflux disease) History of postoperative nausea Hx of degenerative disc disease Hx of fall Hx of motion sickness Multiple sclerosis Sleep apnea Thyroid disease Surgical History H/O colonoscopy Hx of appendectomy Hx of dilation and curettage Hx of hysterectomy Hx of tonsillectomy Social History Social History (Updated 09/01/20 @ 10:10 by Darshana Aquino RN) Are you a primary director of career resources to a significant other at home: No Do you presently have visiting nurse or other home services: No Alcohol intake: current Alcohol intake frequency: holidays/special occasions only Patient Tobacco Use Status: Former Tobacco user Smoked in Last 30 Days: No Use of substances other than those prescribed or required for medical reasons: No Advance Directives: No Advance Directives Information Provided: No
[2021-06-11] MEDS: ondansetron HCL 4 MG/2 ML VIAL IVPUSH (18:40)
[2021-06-11 18:48] LABS: Basophils Percent Auto 0.4 % (0-2); Eosinophils Percent Auto 0.4 % (0-4); Imm Gran Abs Auto 0.02 X10*3/uL (0.00-0.03); Imm Gran Pct Auto 0.2 % (0.0-0.4); Lymphocytes Absolute Auto 0.8 X10*3/uL (1.2-4.9); Lymphocytes Percent Auto 7.8 % (20-40); MANUAL DIFF FLAG NO; Mean Corpuscular HGB Conc 34.1 g/dl (31.0-35.0); Mean Corpuscular Hemoglobin 31.1 pg (27.0-33.0); Mean Corpuscular Volume 91.3 fL (80.0-98.0); Monocytes Absolute Auto 0.3 X10*3/uL (0.1-1.2); Monocytes Percent Auto 3.2 % (2-11); Neutrophils Absolute Auto 9.4 x10*3/uL (2.0-8.3); Platelet Count 232 X10*3/uL (160-400); Red Blood Count 4.82 X10*6/uL (4.20-5.50); Red Cell Distribution Width 13.2 % (11.0-16.0); White Blood Count 10.6 X10*3/uL (4.8-10.8)
[2021-06-11] MEDS: 0.9 % Sodium Chloride 1,000 ML 999 ML IVCONT (18:53)
[2021-06-11 18:59] LABS: COVID-19 Test Negative (Negative)
[2021-06-11 19:03] LABS: Alanine Aminotransferase 19 U/L (0-31); Albumin Level 5.1 g/dL (3.5-5.0); Alkaline Phosphatase 84 U/L (39-117); Anion Gap 17 (12-20); Aspartate Amino Transferase 19 U/L (5-31); Bilirubin Direct 0.4 mg/dL (0.0-0.5); Bilirubin Total 0.9 mg/dL (0.0-1.0); Blood Urea Nitrogen 26 mg/dL (9-16); Calcium 9.9 mg/dL (8.4-10.2); Carbon Dioxide 26 mmol/L (22-29); Chloride 105 mmol/L (96-108); Creatinine Clr Calc Pharmacy 67.4; Estimated Glomerular Filt Rate > 60; Glucose Random 131 mg/dL (60-115); Lipase 8 U/L (8-78); Magnesium 2.3 mg/dL (1.6-2.6); Potassium 3.9 mmol/L (3.3-5.1); Sodium 144 mmol/L (135-145); Total Protein 8.2 g/dL (6.5-8.0)
--- NOTE | 2021-06-11 20:19 | PHA.MEDREC ---
Pharmacy Consult ? Medication Reconciliation Pharmacy has completed the medication reconciliation.
[2021-06-11] MEDS: Lidocaine HCl 4 % MPF w/MADgic 5 ML AMPUL 1 APPL TOPICAL (21:08)
[2021-06-11] MEDS: LORazepam 2 MG/ML VIAL 1 MG IVPUSH (21:09)
[2021-06-11] MEDS: 0.9 % Sodium Chloride 1,000 ML 100 ML IVCONT (23:15)
[2021-06-12] MEDS: 0.9 % Sodium Chloride Flush 3 ML SYRINGE IVFLUSH ×2 (01:25→16:51)
[2021-06-12 04:27] VITALS: BP 134/70; PULSE 79; RESP 16; O2SAT 99
[2021-06-12] MEDS: Acetaminophen 325 MG TABLET 650 MG PO (05:11)
--- NOTE | 2021-06-12 05:13 | PC.NURSE ---
Delma has ambulated to the bathroom while here in the ED independently and with steady gait.
[2021-06-12 06:07] LABS: MANUAL DIFF FLAG NO
[2021-06-12 06:11] LABS: Basophils Percent Auto 0.6 % (0-2); Eosinophils Absolute Auto 0.2 X10*3/uL (0.0-0.4); Eosinophils Percent Auto 2.6 % (0-4); Hematocrit 38.9 % (37.0-47.0); Imm Gran Abs Auto 0.01 X10*3/uL (0.00-0.03); Imm Gran Pct Auto 0.2 % (0.0-0.4); Lymphocytes Absolute Auto 1.3 X10*3/uL (1.2-4.9); Lymphocytes Percent Auto 19.5 % (20-40); Mean Corpuscular HGB Conc 33.4 g/dl (31.0-35.0); Mean Corpuscular Hemoglobin 30.9 pg (27.0-33.0); Mean Corpuscular Volume 92.4 fL (80.0-98.0); Mean Platelet Volume 10.1 fL (9.4-12.3); Monocytes Absolute Auto 0.4 X10*3/uL (0.1-1.2); Monocytes Percent Auto 6.5 % (2-11); Neutrophils Absolute Auto 4.6 x10*3/uL (2.0-8.3); Neutrophils Percent Auto 70.6 % (45-73); Platelet Count 198 X10*3/uL (160-400); Red Blood Count 4.21 X10*6/uL (4.20-5.50); Red Cell Distribution Width 13.4 % (11.0-16.0); White Blood Count 6.6 X10*3/uL (4.8-10.8)
[2021-06-12 06:30] LABS: Anion Gap 12 (12-20); Blood Urea Nitrogen 23 mg/dL (9-16); Calcium 8.3 mg/dL (8.4-10.2); Carbon Dioxide 25 mmol/L (22-29); Chloride 111 mmol/L (96-108); Creatinine Clr Calc Pharmacy 73.5; Estimated Glomerular Filt Rate > 60; Glucose Random 105 mg/dL (60-115); Potassium 3.8 mmol/L (3.3-5.1); Sodium 144 mmol/L (135-145)
[2021-06-12] MEDS: Enoxaparin Sodium 40 MG/0.4 ML SYRINGE SUBCUT (08:28)
[2021-06-12 09:16] VITALS: BP 126/81; PULSE 68; RESP 18; TEMP 37.1; O2SAT 93
[2021-06-12] MEDS: 0.9 % Sodium Chloride 1,000 ML 100 ML IVCONT ×2 (09:19→20:55)
--- NOTE | 2021-06-12 13:44 | PM.HPGS ---
History of Present Illness History of Present Illness Date of Service: 06/12/21 Chief complaint: PSBO Narrative: Delma Tejada is a 65 year old female who came in with 24 hr hs of abdo discomfort and nausea - had a bm on monday but after eating a lot for thanksgiving had nausea and vomiting night into monday. has had previous surgery but no sig bowel obstructions in past. cscope 2 yrs ago normal, has had polyps in past. Review of Systems Constitutional: Constitutional: Reports as per HPI [facility] Past Medical History Medical History Arthritis Asthma Back pain Bronchitis Cough Depression GERD (gastroesophageal reflux disease) History of postoperative nausea Hx of degenerative disc disease Hx of fall Hx of motion sickness Multiple sclerosis Sleep apnea Thyroid disease Surgical History Surgical History H/O colonoscopy Hx of appendectomy Hx of dilation and curettage Hx of hysterectomy Hx of tonsillectomy Social History Social History Are you a primary wound care nurse to a significant other at home: No Do you presently have visiting nurse or other home services: No Alcohol intake: current Alcohol intake frequency: holidays/special occasions only Patient Tobacco Use Status: Former Tobacco user Smoked in Last 30 Days: No Use of substances other than those prescribed or required for medical reasons: No Advance Directives: No Advance Directives Information Provided: No Meds Allergies Allergy/AdvReac Type Severity Reaction Status Date / Time erythromycin base Allergy Severe Nausea and Verified 06/11/21 16:31 Vomiting Penicillins Allergy Severe Anaphylaxis Verified 06/11/21 16:31 bee pollen [bee stings] AdvReac Swelling Verified 06/11/21 16:31 ivory soap AdvReac Intermediate skin Uncoded 09/01/20 10:11 sloughing Active Medications: Current Medications Bupropion HCl (Bupropion Hcl Xl 300 Mg Tab.Er.24h) 300 mg PO DAILY [facility] Last Admin: 06/12/21 09:23 Dose: Not Given Documented by: Cyclobenzaprine HCl (Cyclobenzaprine Hcl 10 Mg Tablet) 10 mg PO BEDTIME PRN PRN Reason: Muscle Spasm Enoxaparin Sodium (Enoxaparin Sodium 40 Mg/0.4 Ml Syringe) 40 mg SUBCUT Q24H [facility] Last Admin: 06/12/21 08:28 Dose: 40 mg Documented by: Gabapentin (Gabapentin 300 Mg Capsule) 300 mg PO DAILY [facility] Last Admin: 06/12/21 09:24 Dose: Not Given Documented by: Gabapentin (Gabapentin 400 Mg Capsule) 1,200 mg PO BEDTIME [facility] Sodium Chloride (Ns) 1,000 mls @ 100 mls/hr IVCONT .Q10H [facility] Last Admin: 06/12/21 09:19 Dose: 100 mls/hr Documented by: Levothyroxine Sodium (Levothyroxine Sodium 75 Mcg Tablet) 75 mcg PO SUTUWETHSA@0600 [facility] Last Admin: 06/12/21 08:25 Dose: Not Given Documented by: Levothyroxine Sodium (Levothyroxine Sodium 75 Mcg Tablet) 112.5 mcg PO MOFR@0630 [facility] Multivitamins/Vitamin C (Multivitamin Tablet) 1 tab PO DAILY [facility] Last Admin: 06/12/21 08:26 Dose: Not Given Documented by: Ondansetron HCl (Ondansetron Hcl 4 Mg/2 Ml Vial) 4 mg IVPUSH Q8H PRN PRN Reason: Nausea Pharmacy Consult (Consult Rx Perform Med Rec) 1 each MISCELLANE ONCE PRN PRN Reason: Consult order Pharmacy Consult (Consult Rx Anticoag Dosing) 1 each MISCELLANE DAILY PRN; Protocol PRN Reason: Consult order Sodium Chloride (0.9 % Sodium Chloride Flush 3 Ml Syringe) 3 ml IVFLUSH QSHIFT [facility] Last Admin: 06/12/21 09:23 Dose: Not Given Documented by: Trazodone HCl (Trazodone Hcl 50 Mg Tablet) 50 mg PO BEDTIME PRN PRN Reason: Insomnia Home Medications Medication Instructions Recorded Confirmed Last Taken Type bupropion HCl 150 mg tablet,12 hr 150 mg PO BID 08/28/20 06/11/21 06/10/21 History sustained-release cyclobenzaprine 10 mg tablet 10 mg PO BEDTIME PRN 08/28/20 06/11/21 Unknown History gabapentin 300 mg capsule 300 mg PO DAILY 08/28/20 06/11/21 06/10/21 History multivitamin 1 tab PO DAILY 08/28/20 06/11/21 06/10/21 History trazodone 50 mg tablet 50 mg PO BEDTIME PRN 08/28/20 06/11/21 06/10/21 History gabapentin 300 mg capsule 1,200 mg PO BEDTIME 06/11/21 06/11/21 06/10/21 History levothyroxine 75 mcg tablet 1 tab PO SUTUWETHSA@0600 06/11/21 06/11/21 06/10/21 History levothyroxine 75 mcg tablet 1.5 tab PO MOFR@0630 06/11/21 06/11/21 06/07/21 History Physical Exam Vital Signs: Vital Signs: Last Vital Signs Temp 98.8 F 06/12/21 09:16 Pulse 68 06/12/21 09:16 Resp 18 06/12/21 09:16 BP 126/81 06/12/21 09:16 Pulse Ox 93 06/12/21 09:16 Body Mass Index 33.5 Const: General: cooperative, healthy appearing, comfortable and no acute distress Neck: Neck: Yes normal visual inspection and Yes no lymphadenopathy Chest: Chest palpation & inspection: normal inspection of the chest Resp: Effort & Inspection: normal respiratory effort and able to speak in complete sentences Auscultation: clear to auscultation bilaterally Cardio: Rate: regular rate Rhythm: regular rhythm GI: Other: soft nontender nondistended some hypo bowel sounds Extrem: General: Yes normal to inspection Psych: Appearance: grossly normal Mental Status: mental status grossly normal Results Results Labs: Short CBC 06/11/21 06/12/21 Range/Units 18:38 06:00 WBC 10.6 6.6 (4.8-10.8) X10*3/uL Hgb 15.0 13.0 (12.0-16.0) g/dl Hct 44.0 38.9 (37.0-47.0) % Plt Count 232 198 (160-400) X10*3/uL BMP 06/11/21 06/12/21 18:38 06:00 Sodium 144 144 Potassium 3.9 3.8 Chloride 105 111 H Carbon Dioxide 26 25 BUN 26 H 23 H Creatinine 0.84 0.77 Calcium 9.9 8.3 L D Liver Function 06/11/21 Range/Units 18:38 Total Bilirubin 0.9 (0.0-1.0) mg/dL Direct Bilirubin 0.4 (0.0-0.5) mg/dL AST 19 (5-31) U/L ALT 19 (0-31) U/L Alkaline Phosphatase 84 D (39-117) U/L Albumin 5.1 H (3.5-5.0) g/dL Abdomen CT scan report/results: report reviewed Assessment and Plan (1) SBO (small bowel obstruction): Status: Acute 65 year old female with previous surgeries - s/p ruptured appy and hysterectomy etc with psbo - plan admit npo ngtube ivf and check lyes and hope with conservative care she will resolve this. extensive discussion had with pt and her and they understand and agree with the plan Quality Stroke Does the patient have a stroke diagnosis?: No VTE Prior VTE?: No VTE Risk Level:: Medical - low VTE Device Contraindication: N/A - Device Ordered VTE Drug Contraindication: N/A - Med Ordered Procedures Date of Service Date of Service: 06/12/21
--- NOTE | 2021-06-12 14:33 | PC.NURSE ---
pt alert and oriented, vss. pt's NG tube draining appropriately, tolerating well. iv fluids infusing without difficulty, iv Tylenol given for 10/10 headache. pt up to use restroom with assistance. Pt remains NPO. pt awaiting bed assignment, her is at her bedside.
--- NOTE | 2021-06-12 14:34 | MHC.CM.PN ---
Met with pt and spouse to discuss d/c planning; pt resides with spouse, is independent w/all care needs, no equipment, services or barriers to self care. IMM signed and placed in chart, 3 Moderna vax given, HCP declined. PCP is Dr. Leigh D/C is expected to be a return to home without services. Spouse will transport.
[2021-06-12 16:43] VITALS: BP 160/76; PULSE 65; RESP 18; TEMP 36.1; O2SAT 95
[2021-06-12] MEDS: Ketorolac Tromethamine 30 MG/ML VIAL IVPUSH ×2 (16:49→23:49)
[2021-06-12 20:27] VITALS: BP 165/93; PULSE 66; RESP 17; TEMP 36.2; O2SAT 95
[2021-06-12] MEDS: Famotidine/PF 20 MG/2 ML VIAL IVPUSH (20:56)
[2021-06-12] MEDS: Gabapentin 400 MG CAPSULE 1200 MG PO (20:56)
[2021-06-12] MEDS: ondansetron HCL 4 MG/2 ML VIAL IVPUSH (21:42)
[2021-06-13] VITALS (7 sets, daily range): BP systolic 129–172; BP diastolic 78–112; PULSE 59–67; RESP 16–18; TEMP 36–36.6; O2SAT 94–97
[2021-06-13] MEDS: Ketorolac Tromethamine 30 MG/ML VIAL IVPUSH (05:54)
[2021-06-13] MEDS: 0.9 % Sodium Chloride 1,000 ML 100 ML IVCONT ×2 (05:57→17:31)
[2021-06-13 06:25] LABS: Baso%MD 0.6 %; Eos%MD 4.1 %; Hematocrit 36.7 % (37.0-47.0); Hemoglobin 12.6 g/dl (12.0-16.0); IG%MD 0.2 %; Lymph%MD 23.7 %; Mean Corpuscular HGB Conc 34.3 g/dl (31.0-35.0); Mean Corpuscular Volume 93.1 fL (80.0-98.0); Mean Platelet Volume 10.1 fL (9.4-12.3); Mono%MD 6.7 %; Neut%MD 64.7 %; Platelet Count 179 X10*3/uL (160-400); Red Blood Count 3.94 X10*6/uL (4.20-5.50); Red Cell Distribution Width 13.2 % (11.0-16.0); White Blood Count 5.4 X10*3/uL (4.8-10.8)
[2021-06-13 06:51] LABS: Anion Gap 11 (12-20); Blood Urea Nitrogen 18 mg/dL (9-16); Calcium 8.2 mg/dL (8.4-10.2); Carbon Dioxide 26 mmol/L (22-29); Chloride 109 mmol/L (96-108); Creatinine Clr Calc Pharmacy 84.5; Estimated Glomerular Filt Rate > 60; Glucose Random 82 mg/dL (60-115); Potassium 3.4 mmol/L (3.3-5.1); Sodium 143 mmol/L (135-145)
[2021-06-13 07:55] LABS: Band Neutrophils Percent 0 % (3-5); Basophils Abs Manual 0.1 X10*3/uL (0.0-0.2); Basophils Percent Manual 1 % (0-2); Eosinophils Absolute Manual 0.3 X10*3/uL (0.0-0.4); Eosinophils Percent Manual 5 % (0-4); Lymphocytes Absolute Manual 1.2 X10*3/uL (1.2-4.9); Lymphocytes Percent Manual 22 % (20-40); Monocytes Absolute Manual 0.2 X10*3/uL (0.1-1.2); Monocytes Percent Manual 4 % (2-11); Neutrophils Absolute Manual 3.7 X10*3/uL (2.0-8.3); Neutrophils Percent Manual 68 % (45-73)
[2021-06-13 07:56] LABS: Platelet Estimate NORMAL (NORMAL); Platelet Morphology Comment NORMAL; RBC Morphology NORMAL
[2021-06-13] MEDS: Famotidine/PF 20 MG/2 ML VIAL IVPUSH ×2 (09:28→20:21)
[2021-06-13] MEDS: Enoxaparin Sodium 40 MG/0.4 ML SYRINGE SUBCUT (09:28)
[2021-06-13] MEDS: ondansetron HCL 4 MG/2 ML VIAL IVPUSH (18:50)
[2021-06-13] MEDS: Metoclopramide HCl 10 MG/2 ML VIAL IVPUSH (22:32)
--- NOTE | 2021-06-13 23:13 | PM.PNGS ---
Subjective Subjective Date of Service: 06/13/21 Interval history: no flatus, no bowel movement was a little nauseated earlier less ng output no significant abdo pain, feeling hot and has a headache that comes and goes. Physical Exam Vital Signs: Vital Signs: Last Vital Signs Temp 97.7 F 06/13/21 20:00 Pulse 67 06/13/21 20:00 Resp 17 06/13/21 20:00 BP 172/98 H 06/13/21 20:00 Pulse Ox 96 06/13/21 20:00 Body Mass Index 33.5 Const: General: cooperative, comfortable and alert Resp: Auscultation: clear to auscultation bilaterally Cardio: Rate: regular rate GI: Other: abdom soft, nontender still distended, quiet bowel sounds Extrem: Other: soft calfs nontender Psych: Other: frustrated and scared about being nauseated and throwing up if ng clamped Objective Data Active Medications Benzocaine (Throat Lozenge, Medicated Lozenge) 1 lozenge MUCOUS MEM Q2H PRN PRN Reason: Sore Throat Bupropion HCl (Bupropion Hcl Xl 300 Mg Tab.Er.24h) 300 mg PO DAILY [facility] Last Admin: 06/13/21 09:20 Dose: Not Given Documented by: STEPHANIE Non-Admin Reason: NPO Cyclobenzaprine HCl (Cyclobenzaprine Hcl 10 Mg Tablet) 10 mg PO BEDTIME PRN PRN Reason: Muscle Spasm Enoxaparin Sodium (Enoxaparin Sodium 40 Mg/0.4 Ml Syringe) 40 mg SUBCUT Q24H [facility] Last Admin: 06/13/21 09:28 Dose: 40 mg Documented by: STEPHANIE Famotidine (Famotidine/Pf 20 Mg/2 Ml Vial) 20 mg IVPUSH BID [facility] Last Admin: 06/13/21 20:21 Dose: 20 mg Documented by: MACY Gabapentin (Gabapentin 300 Mg Capsule) 300 mg PO DAILY [facility] Last Admin: 06/13/21 09:20 Dose: Not Given Documented by: STEPHANIE Non-Admin Reason: NPO Gabapentin (Gabapentin 400 Mg Capsule) 1,200 mg PO BEDTIME [facility] Last Admin: 06/13/21 20:17 Dose: Not Given Documented by: MACY Non-Admin Reason: Physician Held Med Sodium Chloride (Ns) 1,000 mls @ 100 mls/hr IVCONT .Q10H [facility] Last Admin: 06/13/21 17:31 Dose: 100 mls/hr Documented by: STEPHANIE Ketorolac Tromethamine (Ketorolac Tromethamine 30 Mg/Ml Vial) 30 mg IVPUSH Q6H PRN PRN Reason: Pain, Mild (Pain Scale 1-3) Last Admin: 06/13/21 05:54 Dose: 30 mg Documented by: MIRIAMRISEmeli Levothyroxine Sodium (Levothyroxine Sodium 75 Mcg Tablet) 75 mcg PO SUTUWETHSA@0600 [facility] Last Admin: 06/13/21 06:18 Dose: Not Given Documented by: ODRISM Non-Admin Reason: NPO Levothyroxine Sodium (Levothyroxine Sodium 75 Mcg Tablet) 112.5 mcg PO MOFR@0630 [facility] Multivitamins/Vitamin C (Multivitamin Tablet) 1 tab PO DAILY [facility] Last Admin: 06/13/21 09:20 Dose: Not Given Documented by: STEPHANIE Non-Admin Reason: NPO Ondansetron HCl (Ondansetron Hcl 4 Mg/2 Ml Vial) 4 mg IVPUSH Q8H PRN PRN Reason: Nausea Last Admin: 06/13/21 18:50 Dose: 4 mg Documented by: STEPHANIE Pharmacy Consult (Consult Rx Perform Med Rec) 1 each MISCELLANE ONCE PRN PRN Reason: Consult order Pharmacy Consult (Consult Rx Anticoag Dosing) 1 each MISCELLANE DAILY PRN; Protocol PRN Reason: Consult order Sodium Chloride (0.9 % Sodium Chloride Flush 3 Ml Syringe) 3 ml IVFLUSH QSHIFT [facility] Last Admin: 06/13/21 15:57 Dose: Not Given Documented by: STEPHANIE Non-Admin Reason: IV Running Trazodone HCl (Trazodone Hcl 50 Mg Tablet) 50 mg PO BEDTIME PRN PRN Reason: Insomnia Labs CBC & Chem 7: 06/13/21 05:25 06/13/21 05:25 Labs: Laboratory Results - last 24 hr 06/13/21 06/13/21 05:25 05:25 MCV 93.1 MCH 32.0 MCHC 34.3 RDW 13.2 Plt Count 179 MPV 10.1 Absolute Nucleated RBC 0.000 Nucleated RBC % (auto) 0.0 Neutrophils % (Manual) 68 Band Neutrophils % 0 L Lymphocytes % (Manual) 22 Monocytes % (Manual) 4 Eosinophils % (Manual) 5 H Basophils % (Manual) 1 Abs Neuts (Manual) 3.7 Lymphocytes # (Manual) 1.2 Monocytes # (Manual) 0.2 Eosinophils # (Manual) 0.3 Basophils # (Manual) 0.1 Platelet Estimate NORMAL Plt Morphology Comment NORMAL RBC Morphology NORMAL Anion Gap 11 L Estim Creat Clear Calc 84.5 Estimated GFR > 60 Random Glucose 82 Calcium 8.2 L Procedures Date of Service Date of Service: 06/13/21 Progress Note: A&P Assessment and plan (1) SBO (small bowel obstruction): Status: Acute Assessment and Plan: 65 samy old female with MS with sbo prob secondary to adhesions - doing ok but not much progress small bowel study carried out - 90 cc of gastrograffin placed down ng tube and clamped around 10pm- goal to keep clamped and fu with kub at 8:00 am . this was discussed with pt and and they agree with plan check labs in am medical consult for MS management Fall Risk Details Current Medications: Current Medications Benzocaine (Throat Lozenge, Medicated Lozenge) 1 lozenge MUCOUS MEM Q2H PRN PRN Reason: Sore Throat Bupropion HCl (Bupropion Hcl Xl 300 Mg Tab.Er.24h) 300 mg PO DAILY [facility] Last Admin: 06/13/21 09:20 Dose: Not Given Documented by: Cyclobenzaprine HCl (Cyclobenzaprine Hcl 10 Mg Tablet) 10 mg PO BEDTIME PRN PRN Reason: Muscle Spasm Enoxaparin Sodium (Enoxaparin Sodium 40 Mg/0.4 Ml Syringe) 40 mg SUBCUT Q24H [facility] Last Admin: 06/13/21 09:28 Dose: 40 mg Documented by: Famotidine (Famotidine/Pf 20 Mg/2 Ml Vial) 20 mg IVPUSH BID [facility] Last Admin: 06/13/21 20:21 Dose: 20 mg Documented by: Gabapentin (Gabapentin 300 Mg Capsule) 300 mg PO DAILY [facility] Last Admin: 06/13/21 09:20 Dose: Not Given Documented by: Gabapentin (Gabapentin 400 Mg Capsule) 1,200 mg PO BEDTIME [facility] Last Admin: 06/13/21 20:17 Dose: Not Given Documented by: Sodium Chloride (Ns) 1,000 mls @ 100 mls/hr IVCONT .Q10H [facility] Last Admin: 06/13/21 17:31 Dose: 100 mls/hr Documented by: Ketorolac Tromethamine (Ketorolac Tromethamine 30 Mg/Ml Vial) 30 mg IVPUSH Q6H PRN PRN Reason: Pain, Mild (Pain Scale 1-3) Last Admin: 06/13/21 05:54 Dose: 30 mg Documented by: Levothyroxine Sodium (Levothyroxine Sodium 75 Mcg Tablet) 75 mcg PO SUTUWETHSA@0600 [facility] Last Admin: 06/13/21 06:18 Dose: Not Given Documented by: Levothyroxine Sodium (Levothyroxine Sodium 75 Mcg Tablet) 112.5 mcg PO MOFR@0630 [facility] Multivitamins/Vitamin C (Multivitamin Tablet) 1 tab PO DAILY [facility] Last Admin: 06/13/21 09:20 Dose: Not Given Documented by: Ondansetron HCl (Ondansetron Hcl 4 Mg/2 Ml Vial) 4 mg IVPUSH Q8H PRN PRN Reason: Nausea Last Admin: 06/13/21 18:50 Dose: 4 mg Documented by: Pharmacy Consult (Consult Rx Perform Med Rec) 1 each MISCELLANE ONCE PRN PRN Reason: Consult order Pharmacy Consult (Consult Rx Anticoag Dosing) 1 each MISCELLANE DAILY PRN; Protocol PRN Reason: Consult order Sodium Chloride (0.9 % Sodium Chloride Flush 3 Ml Syringe) 3 ml IVFLUSH QSHIFT [facility] Last Admin: 06/13/21 15:57 Dose: Not Given Documented by: Trazodone HCl (Trazodone Hcl 50 Mg Tablet) 50 mg PO BEDTIME PRN PRN Reason: Insomnia Time Spent With Patient Time: Total time spent is greater than 50% in coordination of care (as documented) at patient's floor/unit and/or counseling patient: Time with patient: Greater than 35 minutes Quality Stroke Does the patient have a stroke diagnosis?: No VTE Prior VTE?: No VTE Risk Level:: Medical - low VTE Device Contraindication: N/A - Device Ordered VTE Drug Contraindication: N/A - Med Ordered
[2021-06-14] VITALS: BP 147/83; PULSE 75; RESP 16; TEMP 36.1; O2SAT 95
[2021-06-14] MEDS: 0.9 % Sodium Chloride 1,000 ML 100 ML IVCONT ×2 (03:35→16:59)
[2021-06-14 04:00] VITALS: BP 164/82; PULSE 70; RESP 16; TEMP 36.4; O2SAT 95
[2021-06-14] MEDS: Ketorolac Tromethamine 30 MG/ML VIAL IVPUSH (04:24)
[2021-06-14 07:46] VITALS: BP 141/89; PULSE 72; RESP 18; TEMP 36.4; O2SAT 96
--- NOTE | 2021-06-14 08:32 | PM.PNGS ---
Subjective Subjective Date of Service: 06/14/21 Interval history: Says she feels well Denies abdominal pain Complaints of headache Denies flatus Physical Exam Vital Signs: Vital Signs: Last Vital Signs Temp 97.5 F 06/14/21 07:46 Pulse 72 06/14/21 07:46 Resp 18 06/14/21 07:46 BP 141/89 H 06/14/21 07:46 Pulse Ox 96 06/14/21 07:46 Body Mass Index 33.5 Const: General: comfortable and no acute distress Resp: Effort & Inspection: normal respiratory effort Cardio: Rate: regular rate GI: Palpation (GI): Soft to palpation, not firm, nontender, no guarding and not rigid Objective Data Active Medications Benzocaine (Throat Lozenge, Medicated Lozenge) 1 lozenge MUCOUS MEM Q2H PRN PRN Reason: Sore Throat Bupropion HCl (Bupropion Hcl Xl 300 Mg Tab.Er.24h) 300 mg PO DAILY [facility] Last Admin: 06/13/21 09:20 Dose: Not Given Documented by: STEPHANIE Non-Admin Reason: NPO Cyclobenzaprine HCl (Cyclobenzaprine Hcl 10 Mg Tablet) 10 mg PO BEDTIME PRN PRN Reason: Muscle Spasm Enoxaparin Sodium (Enoxaparin Sodium 40 Mg/0.4 Ml Syringe) 40 mg SUBCUT Q24H [facility] Last Admin: 06/13/21 09:28 Dose: 40 mg Documented by: STEPHANIE Famotidine (Famotidine/Pf 20 Mg/2 Ml Vial) 20 mg IVPUSH BID [facility] Last Admin: 06/13/21 20:21 Dose: 20 mg Documented by: MACY Gabapentin (Gabapentin 300 Mg Capsule) 300 mg PO DAILY [facility] Last Admin: 06/13/21 09:20 Dose: Not Given Documented by: STEPHANIE Non-Admin Reason: NPO Gabapentin (Gabapentin 400 Mg Capsule) 1,200 mg PO BEDTIME [facility] Last Admin: 06/13/21 20:17 Dose: Not Given Documented by: MACY Non-Admin Reason: Physician Held Med Sodium Chloride (Ns) 1,000 mls @ 100 mls/hr IVCONT .Q10H [facility] Last Infusion: 06/14/21 07:54 Dose: 0 mls/hr Documented by: CLAIR Ketorolac Tromethamine (Ketorolac Tromethamine 30 Mg/Ml Vial) 30 mg IVPUSH Q6H PRN PRN Reason: Pain, Mild (Pain Scale 1-3) Last Admin: 06/14/21 04:24 Dose: 30 mg Documented by: MACY Levothyroxine Sodium (Levothyroxine Sodium 75 Mcg Tablet) 75 mcg PO SUTUWETHSA@0600 [facility] Last Admin: 06/13/21 06:18 Dose: Not Given Documented by: ODRISM Non-Admin Reason: NPO Levothyroxine Sodium (Levothyroxine Sodium 75 Mcg Tablet) 112.5 mcg PO MOFR@0630 [facility] Last Admin: 06/14/21 05:42 Dose: Not Given Documented by: MACY Non-Admin Reason: NPO Multivitamins/Vitamin C (Multivitamin Tablet) 1 tab PO DAILY [facility] Last Admin: 06/13/21 09:20 Dose: Not Given Documented by: STEPHANIE Non-Admin Reason: NPO Ondansetron HCl (Ondansetron Hcl 4 Mg/2 Ml Vial) 4 mg IVPUSH Q8H PRN PRN Reason: Nausea Last Admin: 06/13/21 18:50 Dose: 4 mg Documented by: STEPHANIE Pharmacy Consult (Consult Rx Perform Med Rec) 1 each MISCELLANE ONCE PRN PRN Reason: Consult order Pharmacy Consult (Consult Rx Anticoag Dosing) 1 each MISCELLANE DAILY PRN; Protocol PRN Reason: Consult order Sodium Chloride (0.9 % Sodium Chloride Flush 3 Ml Syringe) 3 ml IVFLUSH QSHIFT [facility] Last Admin: 06/14/21 07:54 Dose: Not Given Documented by: CLAIR Non-Admin Reason: IV Running Trazodone HCl (Trazodone Hcl 50 Mg Tablet) 50 mg PO BEDTIME PRN PRN Reason: Insomnia Labs CBC & Chem 7: 06/13/21 05:25 06/13/21 05:25 Procedures Date of Service Date of Service: 06/14/21 Progress Note: A&P Assessment and plan (1) SBO (small bowel obstruction): Status: Acute Assessment and Plan: Has had multiple previous abdominal surgeries Exam benign Abdomen soft and nontender Follow-up KUB ordered by Dr. Talley in this morning If this looks much improved, will plan on removing NG tube Clinically much improved Fall Risk Details Current Medications: Current Medications Benzocaine (Throat Lozenge, Medicated Lozenge) 1 lozenge MUCOUS MEM Q2H PRN PRN Reason: Sore Throat Bupropion HCl (Bupropion Hcl Xl 300 Mg Tab.Er.24h) 300 mg PO DAILY [facility] Last Admin: 06/13/21 09:20 Dose: Not Given Documented by: Cyclobenzaprine HCl (Cyclobenzaprine Hcl 10 Mg Tablet) 10 mg PO BEDTIME PRN PRN Reason: Muscle Spasm Enoxaparin Sodium (Enoxaparin Sodium 40 Mg/0.4 Ml Syringe) 40 mg SUBCUT Q24H [facility] Last Admin: 06/13/21 09:28 Dose: 40 mg Documented by: Famotidine (Famotidine/Pf 20 Mg/2 Ml Vial) 20 mg IVPUSH BID [facility] Last Admin: 06/13/21 20:21 Dose: 20 mg Documented by: Gabapentin (Gabapentin 300 Mg Capsule) 300 mg PO DAILY [facility] Last Admin: 06/13/21 09:20 Dose: Not Given Documented by: Gabapentin (Gabapentin 400 Mg Capsule) 1,200 mg PO BEDTIME [facility] Last Admin: 06/13/21 20:17 Dose: Not Given Documented by: Sodium Chloride (Ns) 1,000 mls @ 100 mls/hr IVCONT .Q10H [facility] Last Infusion: 06/14/21 07:54 Dose: 0 mls/hr Documented by: Ketorolac Tromethamine (Ketorolac Tromethamine 30 Mg/Ml Vial) 30 mg IVPUSH Q6H PRN PRN Reason: Pain, Mild (Pain Scale 1-3) Last Admin: 06/14/21 04:24 Dose: 30 mg Documented by: Levothyroxine Sodium (Levothyroxine Sodium 75 Mcg Tablet) 75 mcg PO SUTUWETHSA@0600 [facility] Last Admin: 06/13/21 06:18 Dose: Not Given Documented by: Levothyroxine Sodium (Levothyroxine Sodium 75 Mcg Tablet) 112.5 mcg PO MOFR@0630 [facility] Last Admin: 06/14/21 05:42 Dose: Not Given Documented by: Multivitamins/Vitamin C (Multivitamin Tablet) 1 tab PO DAILY [facility] Last Admin: 06/13/21 09:20 Dose: Not Given Documented by: Ondansetron HCl (Ondansetron Hcl 4 Mg/2 Ml Vial) 4 mg IVPUSH Q8H PRN PRN Reason: Nausea Last Admin: 06/13/21 18:50 Dose: 4 mg Documented by: Pharmacy Consult (Consult Rx Perform Med Rec) 1 each MISCELLANE ONCE PRN PRN Reason: Consult order Pharmacy Consult (Consult Rx Anticoag Dosing) 1 each MISCELLANE DAILY PRN; Protocol PRN Reason: Consult order Sodium Chloride (0.9 % Sodium Chloride Flush 3 Ml Syringe) 3 ml IVFLUSH QSHIFT [facility] Last Admin: 06/14/21 07:54 Dose: Not Given Documented by: Trazodone HCl (Trazodone Hcl 50 Mg Tablet) 50 mg PO BEDTIME PRN PRN Reason: Insomnia Time Spent With Patient Time: Total time spent is greater than 50% in coordination of care (as documented) at patient's floor/unit and/or counseling patient: Time with patient: 15 - 24 minutes Quality Stroke Does the patient have a stroke diagnosis?: No VTE Prior VTE?: No VTE Risk Level:: Medical - low VTE Device Contraindication: N/A - Device Ordered VTE Drug Contraindication: N/A - Med Ordered
[2021-06-14] MEDS: Famotidine/PF 20 MG/2 ML VIAL IVPUSH (08:33)
[2021-06-14] MEDS: ondansetron HCL 4 MG/2 ML VIAL IVPUSH ×2 (08:33→19:40)
[2021-06-14] MEDS: Enoxaparin Sodium 40 MG/0.4 ML SYRINGE SUBCUT (08:33)
--- NOTE | 2021-06-14 10:19 | PM.EVENT ---
Event Note Date of Service: 06/14/21 Event Note: Passing flatus and moving bowels this morning. Does have persistent nausea that worsened when NGT was clamped yesterday. AXR this morning reveals contrast in colon. Residual was low when NGT unclamped but patient felt better with it to suction. Will keep NGT in place to low intermittent suction. Some bloody output, start PPI. Encouraged OOB/ambulation today. Will reassess later.
[2021-06-14 12:00] VITALS: BP 147/84; PULSE 68; RESP 18; TEMP 36.5; O2SAT 98
--- NOTE | 2021-06-14 14:46 | MHC.CLN ---
NUTRITION VISITED WITH PATIENT WITH SPOUSE PRESENT TO DISCUSS WEIGHT LOSS. WEIGHT LOSS X 9 MONTHS=-19.2%. WEIGHT LOSS PLANNED AND DESIRABLE. PATIENT FOLLOWING [facility] WEIGHT LOSS PLAN. FOLLOW FOR DIET ADVANCEMENT.
[2021-06-14 15:44] VITALS: BP 156/80; PULSE 86; RESP 18; TEMP 36.4; O2SAT 95
[2021-06-14] MEDS: Pantoprazole Sodium 40 MG/10 ML VIAL IVPUSH (16:56)
[2021-06-14 19:07] VITALS: BP 148/84; PULSE 72; RESP 18; TEMP 36.5; O2SAT 97
[2021-06-14] MEDS: traZODone HCL 50 MG TABLET PO (19:40)
[2021-06-14] MEDS: Gabapentin 400 MG CAPSULE 1200 MG PO (19:40)
[2021-06-14] MEDS: 0.9 % Sodium Chloride Flush 3 ML SYRINGE IVFLUSH (19:41)
[2021-06-15] VITALS: BP 141/68; PULSE 65; RESP 16; TEMP 36.3; O2SAT 98
[2021-06-15 03:32] VITALS: BP 161/74; PULSE 66; RESP 16; TEMP 36.2; O2SAT 96
[2021-06-15] MEDS: Ketorolac Tromethamine 30 MG/ML VIAL IVPUSH (03:39)
[2021-06-15] MEDS: Pantoprazole Sodium 40 MG/10 ML VIAL IVPUSH ×2 (05:46→16:06)
[2021-06-15] MEDS: Levothyroxine Sodium 75 MCG TABLET PO (05:47)
[2021-06-15 07:55] VITALS: BP 177/89; PULSE 68; RESP 18; TEMP 36; O2SAT 96
--- NOTE | 2021-06-15 08:29 | PM.PNGS ---
Subjective Subjective Date of Service: 06/15/21 <Jenna Lawrence PA-C - Last Filed: 06/15/21 08:31> 06/15/21 <Andrea Rivera MD - Last Filed: 06/15/21 12:43> Interval history: C/o headache this morning. Had multiple bowel movements yesterday and passed large amount of flatus. Has been OOB and ambulating. Feels hungry. Denies abd pain. <Jenna Lawrence PA-C - Last Filed: 06/15/21 08:31> Physical Exam Vital Signs: Vital Signs: Last Vital Signs Temp 96.8 F 06/15/21 07:55 Pulse 68 06/15/21 07:55 Resp 18 06/15/21 07:55 BP 177/89 H 06/15/21 07:55 Pulse Ox 96 06/15/21 07:55 Body Mass Index 33.5 <Jenna Lawrence PA-C - Last Filed: 06/15/21 08:31> Const: Orientation/consciousness: patient oriented x3 <Jenna Lawrence PA-C - Last Filed: 06/15/21 08:31> Resp: Effort & Inspection: normal respiratory effort <Jenna Lawrence PA-C - Last Filed: 06/15/21 08:31> GI: Inspection: No distended <Jenna Lawrence PA-C - Last Filed: 06/15/21 08:31> Palpation (GI): Soft to palpation, nontender, no guarding and not rigid <Jenna Lwarence PA-C - Last Filed: 06/15/21 08:31> Percussion: Yes normal to percussion <Jenna Lawrence PA-C - Last Filed: 06/15/21 08:31> Skin: General skin exam: no rashes or lesions noted <Jenna Lawrence PA-C - Last Filed: 06/15/21 08:31> Neuro: General: patient oriented x3 <Jenna Lawrence PA-C - Last Filed: 06/15/21 08:31> Extrem: General: Yes no clubbing, cyanosis or edema <Jenna Lawrence PA-C - Last Filed: 06/15/21 08:31> Objective Data Active Medications Acetaminophen (Acetaminophen 325 Mg Tablet) 650 mg PO Q6H PRN PRN Reason: Pain, Mild (Pain Scale 1-3) Benzocaine (Throat Lozenge, Medicated Lozenge) 1 lozenge MUCOUS MEM Q2H PRN PRN Reason: Sore Throat Bupropion HCl (Bupropion Hcl Xl 300 Mg Tab.Er.24h) 300 mg PO DAILY [facility] Last Admin: 06/14/21 08:58 Dose: Not Given Documented by: CLAIR Non-Admin Reason: NPO Cyclobenzaprine HCl (Cyclobenzaprine Hcl 10 Mg Tablet) 10 mg PO BEDTIME PRN PRN Reason: Muscle Spasm Enoxaparin Sodium (Enoxaparin Sodium 40 Mg/0.4 Ml Syringe) 40 mg SUBCUT Q24H [facility] Last Admin: 06/14/21 08:33 Dose: 40 mg Documented by: CLAIR Gabapentin (Gabapentin 300 Mg Capsule) 300 mg PO DAILY [facility] Last Admin: 06/14/21 08:58 Dose: Not Given Documented by: CLAIR Non-Admin Reason: NPO Gabapentin (Gabapentin 400 Mg Capsule) 1,200 mg PO BEDTIME [facility] Last Admin: 06/14/21 19:40 Dose: 1,200 mg Documented by: RAFAEL Ketorolac Tromethamine (Ketorolac Tromethamine 30 Mg/Ml Vial) 30 mg IVPUSH Q6H PRN PRN Reason: Pain, Mild (Pain Scale 1-3) Last Admin: 06/15/21 03:39 Dose: 30 mg Documented by: RAFAEL Levothyroxine Sodium (Levothyroxine Sodium 75 Mcg Tablet) 75 mcg PO SUTUWETHSA@0600 [facility] Last Admin: 06/15/21 05:47 Dose: 75 mcg Documented by: CASTRM Levothyroxine Sodium (Levothyroxine Sodium 75 Mcg Tablet) 112.5 mcg PO MOFR@0630 [facility] Last Admin: 06/14/21 05:42 Dose: Not Given Documented by: MACY Non-Admin Reason: NPO Multivitamins/Vitamin C (Multivitamin Tablet) 1 tab PO DAILY [facility] Last Admin: 06/14/21 08:58 Dose: Not Given Documented by: CLAIR Non-Admin Reason: NPO Ondansetron HCl (Ondansetron Hcl 4 Mg/2 Ml Vial) 4 mg IVPUSH Q8H PRN PRN Reason: Nausea Last Admin: 06/14/21 19:40 Dose: 4 mg Documented by: RAFAEL Pantoprazole Sodium (Pantoprazole Sodium 40 Mg/10 Ml Vial) 40 mg IVPUSH BID@0630,1630 [facility] Last Admin: 06/15/21 05:46 Dose: 40 mg Documented by: RAFAEL Pharmacy Consult (Consult Rx Perform Med Rec) 1 each MISCELLANE ONCE PRN PRN Reason: Consult order Pharmacy Consult (Consult Rx Anticoag Dosing) 1 each MISCELLANE DAILY PRN; Protocol PRN Reason: Consult order Sodium Chloride (0.9 % Sodium Chloride Flush 3 Ml Syringe) 3 ml IVFLUSH QSHIFT [facility] Last Admin: 06/14/21 19:41 Dose: 3 ml Documented by: RAFAEL Trazodone HCl (Trazodone Hcl 50 Mg Tablet) 50 mg PO BEDTIME PRN PRN Reason: Insomnia Last Admin: 06/14/21 19:40 Dose: 50 mg Documented by: RAFAEL <Jenna Lawrence PA-C - Last Filed: 06/15/21 08:31> Labs CBC & Chem 7: : 06/13/21 05:25 06/13/21 05:25 <Jenna Lawrence PA-C - Last Filed: 06/15/21 08:31> Procedures Date of Service Date of Service: 06/15/21 <Jenna Lawrence PA-C - Last Filed: 06/15/21 08:31> Progress Note: A&P Assessment and plan (1) SBO (small bowel obstruction): Status: Acute <Jenna Lawrence PA-C - Last Filed: 06/15/21 08:31> Assessment and Plan: She feels well Denies pain KUB from yesterday shows all of oral contrast has passed into the colon Abdomen soft and benign DC NG tube Start on clear liquids and slowly advance as tolerated Seen and examined independently - agree with BALBINA Lawrence <Andrea Rivera MD - Last Filed: 06/15/21 12:43> Assessment and Plan: 65 year old admitted with SBO. Appears to be resolving. Given gastrograffin 06/13/21, f/u AXR revealed contrast in colon. She feels better. NGT has had minimal output. Will remove and start on clear liquids. Advance as tolerated. Patient comfortable with plan. <Jenna Lawrence PA-C - Last Filed: 06/15/21 08:31> Fall Risk Details Current Medications: Current Medications Acetaminophen (Acetaminophen 325 Mg Tablet) 650 mg PO Q6H PRN PRN Reason: Pain, Mild (Pain Scale 1-3) Benzocaine (Throat Lozenge, Medicated Lozenge) 1 lozenge MUCOUS MEM Q2H PRN PRN Reason: Sore Throat Bupropion HCl (Bupropion Hcl Xl 300 Mg Tab.Er.24h) 300 mg PO DAILY [facility] Last Admin: 06/14/21 08:58 Dose: Not Given Documented by: Cyclobenzaprine HCl (Cyclobenzaprine Hcl 10 Mg Tablet) 10 mg PO BEDTIME PRN PRN Reason: Muscle Spasm Enoxaparin Sodium (Enoxaparin Sodium 40 Mg/0.4 Ml Syringe) 40 mg SUBCUT Q24H [facility] Last Admin: 06/14/21 08:33 Dose: 40 mg Documented by: Gabapentin (Gabapentin 300 Mg Capsule) 300 mg PO DAILY [facility] Last Admin: 06/14/21 08:58 Dose: Not Given Documented by: Gabapentin (Gabapentin 400 Mg Capsule) 1,200 mg PO BEDTIME [facility] Last Admin: 06/14/21 19:40 Dose: 1,200 mg Documented by: Ketorolac Tromethamine (Ketorolac Tromethamine 30 Mg/Ml Vial) 30 mg IVPUSH Q6H PRN PRN Reason: Pain, Mild (Pain Scale 1-3) Last Admin: 06/15/21 03:39 Dose: 30 mg Documented by: Levothyroxine Sodium (Levothyroxine Sodium 75 Mcg Tablet) 75 mcg PO SUTUWETHSA@0600 [facility] Last Admin: 06/15/21 05:47 Dose: 75 mcg Documented by: Levothyroxine Sodium (Levothyroxine Sodium 75 Mcg Tablet) 112.5 mcg PO MOFR@0630 [facility] Last Admin: 06/14/21 05:42 Dose: Not Given Documented by: Multivitamins/Vitamin C (Multivitamin Tablet) 1 tab PO DAILY [facility] Last Admin: 06/14/21 08:58 Dose: Not Given Documented by: Ondansetron HCl (Ondansetron Hcl 4 Mg/2 Ml Vial) 4 mg IVPUSH Q8H PRN PRN Reason: Nausea Last Admin: 06/14/21 19:40 Dose: 4 mg Documented by: Pantoprazole Sodium (Pantoprazole Sodium 40 Mg/10 Ml Vial) 40 mg IVPUSH BID@0630,1630 [facility] Last Admin: 06/15/21 05:46 Dose: 40 mg Documented by: Pharmacy Consult (Consult Rx Perform Med Rec) 1 each MISCELLANE ONCE PRN PRN Reason: Consult order Pharmacy Consult (Consult Rx Anticoag Dosing) 1 each MISCELLANE DAILY PRN; Protocol PRN Reason: Consult order Sodium Chloride (0.9 % Sodium Chloride Flush 3 Ml Syringe) 3 ml IVFLUSH QSHIFT [facility] Last Admin: 06/14/21 19:41 Dose: 3 ml Documented by: Trazodone HCl (Trazodone Hcl 50 Mg Tablet) 50 mg PO BEDTIME PRN PRN Reason: Insomnia Last Admin: 06/14/21 19:40 Dose: 50 mg Documented by: <Jenna Lawrence PA-C - Last Filed: 06/15/21 08:31> Time Spent With Patient Time: Total time spent is greater than 50% in coordination of care (as documented) at patient's floor/unit and/or counseling patient: <Jenna Lawrence PA-C - Last Filed: 06/15/21 08:31> Time with patient: 15 - 24 minutes <Jenna Lawrence PA-C - Last Filed: 06/15/21 08:31> Quality Stroke Does the patient have a stroke diagnosis?: No <Jenna Lawrence PA-C - Last Filed: 06/15/21 08:31> VTE Prior VTE?: No <Jenna Lawrence PA-C - Last Filed: 06/15/21 08:31> VTE Risk Level:: Medical - low <Jenna Lawrence PA-C - Last Filed: 06/15/21 08:31> VTE Device Contraindication: N/A - Device Ordered <HOANG Husain Last Filed: 06/15/21 08:31> VTE Drug Contraindication: N/A - Med Ordered <Jenna Lawrence PA-C - Last Filed: 06/15/21 08:31>
[2021-06-15] MEDS: Acetaminophen 325 MG TABLET 650 MG PO ×2 (09:07→23:53)
[2021-06-15] MEDS: Multivitamin TABLET 1 TAB PO (09:11)
[2021-06-15] MEDS: Enoxaparin Sodium 40 MG/0.4 ML SYRINGE SUBCUT (09:11)
[2021-06-15] MEDS: buPROPion HCl XL 300 MG TAB.ER.24H PO (09:11)
[2021-06-15] MEDS: Gabapentin 300 MG CAPSULE PO (09:11)
[2021-06-15] MEDS: 0.9 % Sodium Chloride Flush 3 ML SYRINGE IVFLUSH ×3 (09:13→22:06)
[2021-06-15 11:33] VITALS: BP 126/88; PULSE 78; RESP 18; TEMP 36; O2SAT 97
--- NOTE | 2021-06-15 13:08 | PC.NURSE ---
NG tube DC at 08:00AM. no nausea or vomiting noted. Pt ambulating in the hallway. Just started on clear liquids.
--- NOTE | 2021-06-15 15:08 | MHC.CM.PN ---
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
[2021-06-15 15:20] VITALS: BP 138/79; PULSE 65; RESP 17; TEMP 36.2; O2SAT 98
[2021-06-15 19:20] VITALS: BP 133/82; PULSE 79; RESP 16; TEMP 36.3; O2SAT 95
[2021-06-15] MEDS: Gabapentin 400 MG CAPSULE 1200 MG PO (22:06)
[2021-06-15] MEDS: traZODone HCL 50 MG TABLET PO (22:07)
[2021-06-16] VITALS (7 sets, daily range): BP systolic 107–149; BP diastolic 63–75; PULSE 60–80; RESP 16–18; TEMP 36.3–37.2; O2SAT 94–98
[2021-06-16] MEDS: Pantoprazole Sodium 40 MG/10 ML VIAL IVPUSH ×2 (05:55→16:02)
[2021-06-16] MEDS: Levothyroxine Sodium 75 MCG TABLET PO (05:55)
[2021-06-16] MEDS: buPROPion HCl XL 300 MG TAB.ER.24H PO (08:51)
[2021-06-16] MEDS: Enoxaparin Sodium 40 MG/0.4 ML SYRINGE SUBCUT (08:52)
[2021-06-16] MEDS: Multivitamin TABLET 1 TAB PO (08:52)
[2021-06-16] MEDS: Gabapentin 300 MG CAPSULE PO (08:52)
[2021-06-16] MEDS: 0.9 % Sodium Chloride Flush 3 ML SYRINGE IVFLUSH ×3 (08:53→23:01)
--- NOTE | 2021-06-16 12:08 | PM.PNGS ---
Subjective Subjective Date of Service: 06/16/21 Interval history: She feels wound today Has abdominal pain Passing flatus Had BMs Physical Exam Vital Signs: Vital Signs: Last Vital Signs Temp 98.9 F 06/16/21 11:29 Pulse 76 06/16/21 11:29 Resp 18 06/16/21 11:29 BP 132/67 06/16/21 11:29 Pulse Ox 94 06/16/21 11:29 BMI result Body Mass Index 33.5 Const: General: comfortable and no acute distress Resp: Effort & Inspection: normal respiratory effort Cardio: Rate: regular rate GI: Palpation (GI): Soft to palpation, not firm, nontender and no guarding Objective Data Active Medications Acetaminophen (Acetaminophen 325 Mg Tablet) 650 mg PO Q6H PRN PRN Reason: Pain, Mild (Pain Scale 1-3) Last Admin: 06/15/21 23:53 Dose: 650 mg Documented by: RONALD Benzocaine (Throat Lozenge, Medicated Lozenge) 1 lozenge MUCOUS MEM Q2H PRN PRN Reason: Sore Throat Bupropion HCl (Bupropion Hcl Xl 300 Mg Tab.Er.24h) 300 mg PO DAILY [facility] Last Admin: 06/16/21 08:51 Dose: 300 mg Documented by: PATRICIA Cyclobenzaprine HCl (Cyclobenzaprine Hcl 10 Mg Tablet) 10 mg PO BEDTIME PRN PRN Reason: Muscle Spasm Enoxaparin Sodium (Enoxaparin Sodium 40 Mg/0.4 Ml Syringe) 40 mg SUBCUT Q24H [facility] Last Admin: 06/16/21 08:52 Dose: 40 mg Documented by: PATRICIA Gabapentin (Gabapentin 300 Mg Capsule) 300 mg PO DAILY [facility] Last Admin: 06/16/21 08:52 Dose: 300 mg Documented by: PATRICIA Gabapentin (Gabapentin 400 Mg Capsule) 1,200 mg PO BEDTIME [facility] Last Admin: 06/15/21 22:06 Dose: 1,200 mg Documented by: RONALD Ketorolac Tromethamine (Ketorolac Tromethamine 30 Mg/Ml Vial) 30 mg IVPUSH Q6H PRN PRN Reason: Pain, Mild (Pain Scale 1-3) Last Admin: 06/15/21 03:39 Dose: 30 mg Documented by: RAFAEL Levothyroxine Sodium (Levothyroxine Sodium 75 Mcg Tablet) 75 mcg PO SUTUWETHSA@0600 [facility] Last Admin: 06/16/21 05:55 Dose: 75 mcg Documented by: RONALD Levothyroxine Sodium (Levothyroxine Sodium 75 Mcg Tablet) 112.5 mcg PO MOFR@0630 [facility] Last Admin: 06/14/21 05:42 Dose: Not Given Documented by: MACY Non-Admin Reason: NPO Multivitamins/Vitamin C (Multivitamin Tablet) 1 tab PO DAILY [facility] Last Admin: 06/16/21 08:52 Dose: 1 tab Documented by: PATRICIA Ondansetron HCl (Ondansetron Hcl 4 Mg/2 Ml Vial) 4 mg IVPUSH Q8H PRN PRN Reason: Nausea Last Admin: 06/14/21 19:40 Dose: 4 mg Documented by: RAFAEL Pantoprazole Sodium (Pantoprazole Sodium 40 Mg/10 Ml Vial) 40 mg IVPUSH BID@0630,1630 [facility] Last Admin: 06/16/21 05:55 Dose: 40 mg Documented by: RONALD Pharmacy Consult (Consult Rx Perform Med Rec) 1 each MISCELLANE ONCE PRN PRN Reason: Consult order Pharmacy Consult (Consult Rx Anticoag Dosing) 1 each MISCELLANE DAILY PRN; Protocol PRN Reason: Consult order Sodium Chloride (0.9 % Sodium Chloride Flush 3 Ml Syringe) 3 ml IVFLUSH QSHIFT [facility] Last Admin: 06/16/21 08:53 Dose: 3 ml Documented by: PATRICIA Trazodone HCl (Trazodone Hcl 50 Mg Tablet) 50 mg PO BEDTIME PRN PRN Reason: Insomnia Last Admin: 06/15/21 22:07 Dose: 50 mg Documented by: RONALD Labs CBC & Chem 7: 06/13/21 05:25 06/13/21 05:25 Procedures Date of Service Date of Service: 06/16/21 Progress Note: A&P Assessment and plan (1) SBO (small bowel obstruction): Status: Acute Assessment and Plan: Symptoms resolving Advance diet Abdomen soft She looks well Clinically doing very well Ambulate Fall Risk Details Current Medications: Current Medications Acetaminophen (Acetaminophen 325 Mg Tablet) 650 mg PO Q6H PRN PRN Reason: Pain, Mild (Pain Scale 1-3) Last Admin: 06/15/21 23:53 Dose: 650 mg Documented by: Benzocaine (Throat Lozenge, Medicated Lozenge) 1 lozenge MUCOUS MEM Q2H PRN PRN Reason: Sore Throat Bupropion HCl (Bupropion Hcl Xl 300 Mg Tab.Er.24h) 300 mg PO DAILY [facility] Last Admin: 06/16/21 08:51 Dose: 300 mg Documented by: Cyclobenzaprine HCl (Cyclobenzaprine Hcl 10 Mg Tablet) 10 mg PO BEDTIME PRN PRN Reason: Muscle Spasm Enoxaparin Sodium (Enoxaparin Sodium 40 Mg/0.4 Ml Syringe) 40 mg SUBCUT Q24H [facility] Last Admin: 06/16/21 08:52 Dose: 40 mg Documented by: Gabapentin (Gabapentin 300 Mg Capsule) 300 mg PO DAILY [facility] Last Admin: 06/16/21 08:52 Dose: 300 mg Documented by: Gabapentin (Gabapentin 400 Mg Capsule) 1,200 mg PO BEDTIME [facility] Last Admin: 06/15/21 22:06 Dose: 1,200 mg Documented by: Ketorolac Tromethamine (Ketorolac Tromethamine 30 Mg/Ml Vial) 30 mg IVPUSH Q6H PRN PRN Reason: Pain, Mild (Pain Scale 1-3) Last Admin: 06/15/21 03:39 Dose: 30 mg Documented by: Levothyroxine Sodium (Levothyroxine Sodium 75 Mcg Tablet) 75 mcg PO SUTUWETHSA@0600 [facility] Last Admin: 06/16/21 05:55 Dose: 75 mcg Documented by: Levothyroxine Sodium (Levothyroxine Sodium 75 Mcg Tablet) 112.5 mcg PO MOFR@0630 [facility] Last Admin: 06/14/21 05:42 Dose: Not Given Documented by: Multivitamins/Vitamin C (Multivitamin Tablet) 1 tab PO DAILY [facility] Last Admin: 06/16/21 08:52 Dose: 1 tab Documented by: Ondansetron HCl (Ondansetron Hcl 4 Mg/2 Ml Vial) 4 mg IVPUSH Q8H PRN PRN Reason: Nausea Last Admin: 06/14/21 19:40 Dose: 4 mg Documented by: Pantoprazole Sodium (Pantoprazole Sodium 40 Mg/10 Ml Vial) 40 mg IVPUSH BID@0630,1630 [facility] Last Admin: 06/16/21 05:55 Dose: 40 mg Documented by: Pharmacy Consult (Consult Rx Perform Med Rec) 1 each MISCELLANE ONCE PRN PRN Reason: Consult order Pharmacy Consult (Consult Rx Anticoag Dosing) 1 each MISCELLANE DAILY PRN; Protocol PRN Reason: Consult order Sodium Chloride (0.9 % Sodium Chloride Flush 3 Ml Syringe) 3 ml IVFLUSH QSHIFT [facility] Last Admin: 06/16/21 08:53 Dose: 3 ml Documented by: Trazodone HCl (Trazodone Hcl 50 Mg Tablet) 50 mg PO BEDTIME PRN PRN Reason: Insomnia Last Admin: 06/15/21 22:07 Dose: 50 mg Documented by: Time Spent With Patient Time: Total time spent is greater than 50% in coordination of care (as documented) at patient's floor/unit and/or counseling patient: Time with patient: 15 - 24 minutes Quality Stroke Does the patient have a stroke diagnosis?: No VTE Prior VTE?: No VTE Risk Level:: Medical - low VTE Device Contraindication: N/A - Device Ordered VTE Drug Contraindication: N/A - Med Ordered
[2021-06-16] MEDS: Acetaminophen 325 MG TABLET 650 MG PO ×2 (16:01→22:52)
[2021-06-16] MEDS: Gabapentin 400 MG CAPSULE 1200 MG PO (22:51)
[2021-06-16] MEDS: traZODone HCL 50 MG TABLET PO (22:53)
[2021-06-17 04:00] VITALS: BP 119/63; PULSE 69; RESP 17; TEMP 37; O2SAT 92
[2021-06-17] MEDS: Pantoprazole Sodium 40 MG/10 ML VIAL IVPUSH ×2 (05:44→15:10)
[2021-06-17] MEDS: Levothyroxine Sodium 75 MCG TABLET PO (05:44)
[2021-06-17] MEDS: Acetaminophen 325 MG TABLET 650 MG PO (05:49)
[2021-06-17 07:45] VITALS: BP 131/65; PULSE 65; RESP 18; TEMP 37; O2SAT 94
--- NOTE | 2021-06-17 08:23 | PM.PNGS ---
Subjective Subjective Date of Service: 06/17/21 <Jenna Lawrence PA-C - Last Filed: 06/17/21 08:27> 06/17/21 <Andrea Rivera MD - Last Filed: 06/17/21 09:02> Interval history: Tolerating solid diet. Continues to pass flatus, bowel movements. OOB yesterday but c/o severe right big toe pain. No known diagnosis of gout, arthritis. Reports similar episodes of pain. <Jenna Lawrence PA-C - Last Filed: 06/17/21 08:27> Physical Exam Vital Signs: Vital Signs: Last Vital Signs Temp 98.6 F 06/17/21 07:45 Pulse 65 06/17/21 07:45 Resp 18 06/17/21 07:45 BP 131/65 06/17/21 07:45 Pulse Ox 94 06/17/21 07:45 BMI result Body Mass Index 33.5 <Jenna Lawrence PA-C - Last Filed: 06/17/21 08:27> Const: General: comfortable, no acute distress and alert <Jenna Lawrence PA-C - Last Filed: 06/17/21 08:27> Orientation/consciousness: patient oriented x3 <Jenna Lawrence PA-C - Last Filed: 06/17/21 08:27> Resp: Effort & Inspection: normal respiratory effort <Jenna Lawrence PA-C - Last Filed: 06/17/21 08:27> GI: Inspection: Yes distended (improved, soft) <Jenna Lawrence PA-C - Last Filed: 06/17/21 08:27> Palpation (GI): Soft to palpation, nontender and no guarding <Jenna Lawrence PA-C - Last Filed: 06/17/21 08:27> Percussion: Yes tympanic to percussion (decreasing) <HOANG Husain Last Filed: 06/17/21 08:27> Skin: General skin exam: no rashes or lesions noted <HOANG Husain Last Filed: 06/17/21 08:27> Neuro: General: patient oriented x3 <HOANG Husain Last Filed: 06/17/21 08:27> Extrem: Other: right big toe edematous, no significant erythema but very painful to touch <Jenna Lawrence PA-C - Last Filed: 06/17/21 08:27> Objective Data Active Medications Acetaminophen (Acetaminophen 325 Mg Tablet) 650 mg PO Q6H PRN PRN Reason: Pain, Mild (Pain Scale 1-3) Last Admin: 06/17/21 05:49 Dose: 650 mg Documented by: RONALD Acetaminophen (Acetaminophen 325 Mg Tablet) 650 mg PO Q6H PRN PRN Reason: Pain, Mild (Pain Scale 1-3) Benzocaine (Throat Lozenge, Medicated Lozenge) 1 lozenge MUCOUS MEM Q2H PRN PRN Reason: Sore Throat Bupropion HCl (Bupropion Hcl Xl 300 Mg Tab.Er.24h) 300 mg PO DAILY [facility] Last Admin: 06/16/21 08:51 Dose: 300 mg Documented by: PATRICIA Cyclobenzaprine HCl (Cyclobenzaprine Hcl 10 Mg Tablet) 10 mg PO BEDTIME PRN PRN Reason: Muscle Spasm Enoxaparin Sodium (Enoxaparin Sodium 40 Mg/0.4 Ml Syringe) 40 mg SUBCUT Q24H [facility] Last Admin: 06/16/21 08:52 Dose: 40 mg Documented by: PATRICIA Gabapentin (Gabapentin 300 Mg Capsule) 300 mg PO DAILY [facility] Last Admin: 06/16/21 08:52 Dose: 300 mg Documented by: PATRICIA Gabapentin (Gabapentin 400 Mg Capsule) 1,200 mg PO BEDTIME [facility] Last Admin: 06/16/21 22:51 Dose: 1,200 mg Documented by: RONALD Ketorolac Tromethamine (Ketorolac Tromethamine 30 Mg/Ml Vial) 30 mg IVPUSH Q6H PRN PRN Reason: Pain, Mild (Pain Scale 1-3) Last Admin: 06/15/21 03:39 Dose: 30 mg Documented by: RAFAEL Levothyroxine Sodium (Levothyroxine Sodium 75 Mcg Tablet) 75 mcg PO SUTUWETHSA@0600 [facility] Last Admin: 06/17/21 05:44 Dose: 75 mcg Documented by: RONALD Levothyroxine Sodium (Levothyroxine Sodium 75 Mcg Tablet) 112.5 mcg PO MOFR@0630 [facility] Last Admin: 06/14/21 05:42 Dose: Not Given Documented by: MACY Non-Admin Reason: NPO Multivitamins/Vitamin C (Multivitamin Tablet) 1 tab PO DAILY [facility] Last Admin: 06/16/21 08:52 Dose: 1 tab Documented by: PATRICIA Ondansetron HCl (Ondansetron Hcl 4 Mg/2 Ml Vial) 4 mg IVPUSH Q8H PRN PRN Reason: Nausea Last Admin: 06/14/21 19:40 Dose: 4 mg Documented by: RAFAEL Pantoprazole Sodium (Pantoprazole Sodium 40 Mg/10 Ml Vial) 40 mg IVPUSH BID@0630,1630 [facility] Last Admin: 06/17/21 05:44 Dose: 40 mg Documented by: RONALD Pharmacy Consult (Consult Rx Perform Med Rec) 1 each MISCELLANE ONCE PRN PRN Reason: Consult order Pharmacy Consult (Consult Rx Anticoag Dosing) 1 each MISCELLANE DAILY PRN; Protocol PRN Reason: Consult order Sodium Chloride (0.9 % Sodium Chloride Flush 3 Ml Syringe) 3 ml IVFLUSH QSHIFT [facility] Last Admin: 06/16/21 23:01 Dose: 3 ml Documented by: RONALD Trazodone HCl (Trazodone Hcl 50 Mg Tablet) 50 mg PO BEDTIME PRN PRN Reason: Insomnia Last Admin: 06/16/21 22:53 Dose: 50 mg Documented by: RONALD <Jenna Lawrence PA-C - Last Filed: 06/17/21 08:27> Labs CBC & Chem 7: : 06/13/21 05:25 06/13/21 05:25 <HOANG Husain Last Filed: 06/17/21 08:27> Procedures Date of Service Date of Service: 06/17/21 <HOANG Husain Last Filed: 06/17/21 08:27> Progress Note: A&P Assessment and plan (1) SBO (small bowel obstruction): Status: Acute <HOANG Husain Last Filed: 06/17/21 08:27> Assessment and Plan: Denies abdominal pain Tolerating liquids Has flatus and BMs Only complaint is pain on the big toe Check x-ray and uric acid - she says she may have had gout in the past Otherwise abdomen soft and benign Likely DC home today Seen and examined-agree with BALBINA Lawrence <Andrea Rivera MD - Last Filed: 06/17/21 09:02> Assessment and Plan: 65 year old admitted with SBO which is now resolved. She is tolerating a solid diet with good GI function. Abd benign, soft, NT. C/o severe right big toe pain and is edematous and very tender upon exam. ?Gout. Will obtain foot xray, uric acid level.?Possible discharge to home later today. ? <Jenna Lawrence PA-C - Last Filed: 06/17/21 08:27> Fall Risk Details Current Medications: Current Medications Acetaminophen (Acetaminophen 325 Mg Tablet) 650 mg PO Q6H PRN PRN Reason: Pain, Mild (Pain Scale 1-3) Last Admin: 06/17/21 05:49 Dose: 650 mg Documented by: Acetaminophen (Acetaminophen 325 Mg Tablet) 650 mg PO Q6H PRN PRN Reason: Pain, Mild (Pain Scale 1-3) Benzocaine (Throat Lozenge, Medicated Lozenge) 1 lozenge MUCOUS MEM Q2H PRN PRN Reason: Sore Throat Bupropion HCl (Bupropion Hcl Xl 300 Mg Tab.Er.24h) 300 mg PO DAILY [facility] Last Admin: 06/16/21 08:51 Dose: 300 mg Documented by: Cyclobenzaprine HCl (Cyclobenzaprine Hcl 10 Mg Tablet) 10 mg PO BEDTIME PRN PRN Reason: Muscle Spasm Enoxaparin Sodium (Enoxaparin Sodium 40 Mg/0.4 Ml Syringe) 40 mg SUBCUT Q24H [facility] Last Admin: 06/16/21 08:52 Dose: 40 mg Documented by: Gabapentin (Gabapentin 300 Mg Capsule) 300 mg PO DAILY [facility] Last Admin: 06/16/21 08:52 Dose: 300 mg Documented by: Gabapentin (Gabapentin 400 Mg Capsule) 1,200 mg PO BEDTIME [facility] Last Admin: 06/16/21 22:51 Dose: 1,200 mg Documented by: Ketorolac Tromethamine (Ketorolac Tromethamine 30 Mg/Ml Vial) 30 mg IVPUSH Q6H PRN PRN Reason: Pain, Mild (Pain Scale 1-3) Last Admin: 06/15/21 03:39 Dose: 30 mg Documented by: Levothyroxine Sodium (Levothyroxine Sodium 75 Mcg Tablet) 75 mcg PO SUTUWETHSA@0600 [facility] Last Admin: 06/17/21 05:44 Dose: 75 mcg Documented by: Levothyroxine Sodium (Levothyroxine Sodium 75 Mcg Tablet) 112.5 mcg PO MOFR@0630 [facility] Last Admin: 06/14/21 05:42 Dose: Not Given Documented by: Multivitamins/Vitamin C (Multivitamin Tablet) 1 tab PO DAILY [facility] Last Admin: 06/16/21 08:52 Dose: 1 tab Documented by: Ondansetron HCl (Ondansetron Hcl 4 Mg/2 Ml Vial) 4 mg IVPUSH Q8H PRN PRN Reason: Nausea Last Admin: 06/14/21 19:40 Dose: 4 mg Documented by: Pantoprazole Sodium (Pantoprazole Sodium 40 Mg/10 Ml Vial) 40 mg IVPUSH BID@0630,1630 [facility] Last Admin: 06/17/21 05:44 Dose: 40 mg Documented by: Pharmacy Consult (Consult Rx Perform Med Rec) 1 each MISCELLANE ONCE PRN PRN Reason: Consult order Pharmacy Consult (Consult Rx Anticoag Dosing) 1 each MISCELLANE DAILY PRN; Protocol PRN Reason: Consult order Sodium Chloride (0.9 % Sodium Chloride Flush 3 Ml Syringe) 3 ml IVFLUSH QSHIFT [facility] Last Admin: 06/16/21 23:01 Dose: 3 ml Documented by: Trazodone HCl (Trazodone Hcl 50 Mg Tablet) 50 mg PO BEDTIME PRN PRN Reason: Insomnia Last Admin: 06/16/21 22:53 Dose: 50 mg Documented by: <Jenna Lawrence PA-C - Last Filed: 06/17/21 08:27> Time Spent With Patient Time: Total time spent is greater than 50% in coordination of care (as documented) at patient's floor/unit and/or counseling patient: <Jenna Lawrence PA-C - Last Filed: 06/17/21 08:27> Time with patient: 15 - 24 minutes <Jenna Lawrence PA-C - Last Filed: 06/17/21 08:27> Quality Stroke Does the patient have a stroke diagnosis?: No <Jenna Lawrence PA-C - Last Filed: 06/17/21 08:27> VTE Prior VTE?: No <Jenna Lawrence PA-C - Last Filed: 06/17/21 08:27> VTE Risk Level:: Medical - low <Jenna Lawrence PA-C - Last Filed: 06/17/21 08:27> VTE Device Contraindication: N/A - Device Ordered <Jenna Lawrence PA-C - Last Filed: 06/17/21 08:27> VTE Drug Contraindication: N/A - Med Ordered <Jenna Lawrence PA-C - Last Filed: 06/17/21 08:27>
--- NOTE | 2021-06-17 08:59 | P.PNGS_ITS ---
Subjective Subjective Date of Service: 06/17/21 Physical Exam Vital Signs: Vital Signs: Last Vital Signs Temp 98.6 F 06/17/21 07:45 Pulse 65 06/17/21 07:45 Resp 18 06/17/21 07:45 BP 131/65 06/17/21 07:45 Pulse Ox 94 06/17/21 07:45 BMI result Body Mass Index 33.5 Objective Data Active Medications Acetaminophen (Acetaminophen 325 Mg Tablet) 650 mg PO Q6H PRN PRN Reason: Pain, Mild (Pain Scale 1-3) Last Admin: 06/17/21 05:49 Dose: 650 mg Documented by: RONALD Acetaminophen (Acetaminophen 325 Mg Tablet) 650 mg PO Q6H PRN PRN Reason: Pain, Mild (Pain Scale 1-3) Benzocaine (Throat Lozenge, Medicated Lozenge) 1 lozenge MUCOUS MEM Q2H PRN PRN Reason: Sore Throat Bupropion HCl (Bupropion Hcl Xl 300 Mg Tab.Er.24h) 300 mg PO DAILY [facility] Last Admin: 06/16/21 08:51 Dose: 300 mg Documented by: PATRICIA Cyclobenzaprine HCl (Cyclobenzaprine Hcl 10 Mg Tablet) 10 mg PO BEDTIME PRN PRN Reason: Muscle Spasm Enoxaparin Sodium (Enoxaparin Sodium 40 Mg/0.4 Ml Syringe) 40 mg SUBCUT Q24H [facility] Last Admin: 06/16/21 08:52 Dose: 40 mg Documented by: PATRICIA Gabapentin (Gabapentin 300 Mg Capsule) 300 mg PO DAILY [facility] Last Admin: 06/16/21 08:52 Dose: 300 mg Documented by: PATRICIA Gabapentin (Gabapentin 400 Mg Capsule) 1,200 mg PO BEDTIME [facility] Last Admin: 06/16/21 22:51 Dose: 1,200 mg Documented by: RONALD Ketorolac Tromethamine (Ketorolac Tromethamine 30 Mg/Ml Vial) 30 mg IVPUSH Q6H PRN PRN Reason: Pain, Mild (Pain Scale 1-3) Last Admin: 06/15/21 03:39 Dose: 30 mg Documented by: RAFAEL Levothyroxine Sodium (Levothyroxine Sodium 75 Mcg Tablet) 75 mcg PO SUTUWETHSA@0600 [facility] Last Admin: 06/17/21 05:44 Dose: 75 mcg Documented by: RONALD Levothyroxine Sodium (Levothyroxine Sodium 75 Mcg Tablet) 112.5 mcg PO MOFR@0630 [facility] Last Admin: 06/14/21 05:42 Dose: Not Given Documented by: MACY Non-Admin Reason: NPO Multivitamins/Vitamin C (Multivitamin Tablet) 1 tab PO DAILY [facility] Last Admin: 06/16/21 08:52 Dose: 1 tab Documented by: PATRICIA Ondansetron HCl (Ondansetron Hcl 4 Mg/2 Ml Vial) 4 mg IVPUSH Q8H PRN PRN Reason: Nausea Last Admin: 06/14/21 19:40 Dose: 4 mg Documented by: RAFAEL Pantoprazole Sodium (Pantoprazole Sodium 40 Mg/10 Ml Vial) 40 mg IVPUSH BID@0630,1630 [facility] Last Admin: 06/17/21 05:44 Dose: 40 mg Documented by: RONALD Pharmacy Consult (Consult Rx Perform Med Rec) 1 each MISCELLANE ONCE PRN PRN Reason: Consult order Pharmacy Consult (Consult Rx Anticoag Dosing) 1 each MISCELLANE DAILY PRN; Protocol PRN Reason: Consult order Sodium Chloride (0.9 % Sodium Chloride Flush 3 Ml Syringe) 3 ml IVFLUSH QSHIFT [facility] Last Admin: 06/16/21 23:01 Dose: 3 ml Documented by: RONALD Trazodone HCl (Trazodone Hcl 50 Mg Tablet) 50 mg PO BEDTIME PRN PRN Reason: Insomnia Last Admin: 06/16/21 22:53 Dose: 50 mg Documented by: RONALD Labs CBC & Chem 7: 06/13/21 05:25 06/13/21 05:25 Progress Note: A&P Fall Risk Details Current Medications: Current Medications Acetaminophen (Acetaminophen 325 Mg Tablet) 650 mg PO Q6H PRN PRN Reason: Pain, Mild (Pain Scale 1-3) Last Admin: 06/17/21 05:49 Dose: 650 mg Documented by: Acetaminophen (Acetaminophen 325 Mg Tablet) 650 mg PO Q6H PRN PRN Reason: Pain, Mild (Pain Scale 1-3) Benzocaine (Throat Lozenge, Medicated Lozenge) 1 lozenge MUCOUS MEM Q2H PRN PRN Reason: Sore Throat Bupropion HCl (Bupropion Hcl Xl 300 Mg Tab.Er.24h) 300 mg PO DAILY [facility] Last Admin: 06/16/21 08:51 Dose: 300 mg Documented by: Cyclobenzaprine HCl (Cyclobenzaprine Hcl 10 Mg Tablet) 10 mg PO BEDTIME PRN PRN Reason: Muscle Spasm Enoxaparin Sodium (Enoxaparin Sodium 40 Mg/0.4 Ml Syringe) 40 mg SUBCUT Q24H [facility] Last Admin: 06/16/21 08:52 Dose: 40 mg Documented by: Gabapentin (Gabapentin 300 Mg Capsule) 300 mg PO DAILY [facility] Last Admin: 06/16/21 08:52 Dose: 300 mg Documented by: Gabapentin (Gabapentin 400 Mg Capsule) 1,200 mg PO BEDTIME [facility] Last Admin: 06/16/21 22:51 Dose: 1,200 mg Documented by: Ketorolac Tromethamine (Ketorolac Tromethamine 30 Mg/Ml Vial) 30 mg IVPUSH Q6H PRN PRN Reason: Pain, Mild (Pain Scale 1-3) Last Admin: 06/15/21 03:39 Dose: 30 mg Documented by: Levothyroxine Sodium (Levothyroxine Sodium 75 Mcg Tablet) 75 mcg PO SUTUWETHSA@0600 [facility] Last Admin: 06/17/21 05:44 Dose: 75 mcg Documented by: Levothyroxine Sodium (Levothyroxine Sodium 75 Mcg Tablet) 112.5 mcg PO MOFR@0630 [facility] Last Admin: 06/14/21 05:42 Dose: Not Given Documented by: Multivitamins/Vitamin C (Multivitamin Tablet) 1 tab PO DAILY [facility] Last Admin: 06/16/21 08:52 Dose: 1 tab Documented by: Ondansetron HCl (Ondansetron Hcl 4 Mg/2 Ml Vial) 4 mg IVPUSH Q8H PRN PRN Reason: Nausea Last Admin: 06/14/21 19:40 Dose: 4 mg Documented by: Pantoprazole Sodium (Pantoprazole Sodium 40 Mg/10 Ml Vial) 40 mg IVPUSH BID@0630,1630 [facility] Last Admin: 06/17/21 05:44 Dose: 40 mg Documented by: Pharmacy Consult (Consult Rx Perform Med Rec) 1 each MISCELLANE ONCE PRN PRN Reason: Consult order Pharmacy Consult (Consult Rx Anticoag Dosing) 1 each MISCELLANE DAILY PRN; Protocol PRN Reason: Consult order Sodium Chloride (0.9 % Sodium Chloride Flush 3 Ml Syringe) 3 ml IVFLUSH QSHIFT [facility] Last Admin: 06/16/21 23:01 Dose: 3 ml Documented by: Trazodone HCl (Trazodone Hcl 50 Mg Tablet) 50 mg PO BEDTIME PRN PRN Reason: Insomnia Last Admin: 06/16/21 22:53 Dose: 50 mg Documented by: Time Spent With Patient Time: Total time spent is greater than 50% in coordination of care (as document ed) at patient's floor/unit and/or counseling patient: Quality Stroke Does the patient have a stroke diagnosis?: No VTE Prior VTE?: No VTE Risk Level:: Medical - low VTE Device Contraindication: N/A - Device Ordered VTE Drug Contraindication: N/A - Med Ordered
[2021-06-17 09:02] LABS: Uric Acid 8.9 mg/dL (2.4-5.7)
--- NOTE | 2021-06-17 09:14 | P.DS_ITS ---
DS: Providers Provider Date of Service: 06/17/21 Date of admission: 06/11/21 21:44 Primary care physician: Andrea Leigh MD Attending physician on admission: Jolie Talley Consults: 06/13/21 09:13 Consult to Medicine Routine Consulting Provider: Jolie Talley Reason for consultation: pt with MS meds po meds on hold for npo status with bowel obstruction. also Has provider been notified: No Attending physician on discharge: Andrea Rivera DS: Diagnosis Discharge Diagnosis (1) SBO (small bowel obstruction): Status: Acute DS: Summary Hospital Course Hospital Course: BRIEF HPI:Delma Tejada is a 65 year old female who came in with 24 hr hs of abdo discomfort and nausea - had a bm on monday but after eating a lot for thanksgiving had nausea and vomiting night into monday. Has had previous surgery but denies bowel obstructions in the past. Colonoscopy 2 yrs ago normal, has had polyps in past. Work up in the ED included a CT scan which demonstrated dilated loops of proximal small bowel extending to the mid lower abdomen, with a smooth transition point in the mid lower abdomen. HOSPITAL COURSE: The patient was admitted to the surgical service for further treatment of the SBO. An NGT was inserted and continued for bowel decompression, NPO status and IVF with further plan dependent on clinical course. The patient had an uncomplicated but slower recovery course. On HD #1 she felt improved with less abdominal pain and NGT output however she was not passing flatus. Her activity was increased. Later in the day, a small bowel study was carried out with gastrograffin placed down the NG tube and clamped. She had follow-up abdominal x-ray the following morning which revealed contrast in the colon. However the patient had some nausea with the NG tube clamped and it was therefore left in place until the following day. She began to pass flatus and her nausea was improved without any abdominal pain. The NG tube was therefore removed. She was started on a clear liquid diet. This was slowly advanced As tolerated. She began to move her bowels. She was doing well however she developed significant pain and tenderness of her right toe associated with edema. She denied a history of gout but reported similar episodes in the past. A uric acid level was obtained which was high in a foot x-ray was negative for arthritis. She was started on indomethacin with improvement in her foot pain. She began to ambulate better. She felt ready for discharge. She was discharged to home on 06/17/2021 in stable condition. She was discharged to home on indomethacin and was to continue this until 2 days following resolution of her right big toe pain. She was also educated on a low purine diet. She is to f sunillow up with her PCP upon discharge regarding further treatment. Status at Discharge Functional status at discharge: independent ambulation Overall status at discharge: patient is back to baseline Time Spent with Patient Time attestation: Total time spent providing and/or coordinating discharge services: Discharge coordination time: Greater than 30 minutes Quality: Stroke Does the patient have a stroke diagnosis?: No Physical Exam Vital Signs: Vital Signs: Last Vital Signs Temp 98.6 F 06/17/21 07:45 Pulse 65 06/17/21 07:45 Resp 18 06/17/21 07:45 BP 131/65 06/17/21 07:45 Pulse Ox 94 06/17/21 07:45 BMI result Body Mass Index 33.5 Const: General: healthy appearing, comfortable and no acute distress Nutritional Appearance: well nourished Orientation/consciousness: patient oriented x3 Resp: Effort & Inspection: normal respiratory effort GI: Inspection: Yes distended (decreasingly, soft) Palpation (GI): Soft to palpation and nontender Skin: General skin exam: no rashes or lesions noted Neuro: General: patient oriented x3 Extrem: Other: right great toe edematous and tender DS: Data Data Completed and Pending Labs on day of discharge: Laboratory Results - last 24 hr 06/17/21 08:32 Uric Acid 8.9 H Discharge Plan Discharge Patient Disposition: Home, Self-Care Discharge Diagnosis: SBO, gout flare Referrals: Andrea Leigh MD [Primary Care Provider] - 1 Week Discharge Medications: New indomethacin 25 mg capsule 25 mg PO TID Qty: 60 RF: 0 Continued multivitamin Tablet 1 tab PO DAILY RF: 0 cyclobenzaprine 10 mg tablet 10 mg PO BEDTIME PRN (Reason: Muscle Spasm) RF: 0 bupropion HCl 150 mg tablet sustained-release 12 hr 150 mg PO BID RF: 0 trazodone 50 mg tablet 50 mg PO BEDTIME PRN (Reason: Insomnia) RF: 0 gabapentin 300 mg capsule 300 mg PO DAILY RF: 0 levothyroxine 75 mcg tablet 1 tab PO SUTUWETHSA@0600 RF: 0 levothyroxine 75 mcg tablet 1.5 tab PO MOFR@0630 RF: 0 gabapentin 300 mg capsule 1,200 mg PO BEDTIME RF: 0 Discharge Orders: Discharge Order (Routine); Ordered 06/17/21 Ordered By: Jenna Lawrence Diet: advance to usual diet and other Activity on Discharge: As tolerated Stand Alone Forms: Patient Portal Discharge page Activity Restrictions/Additional Instructions: Stop Indomethacin 2 days after toe pain has completely resolved. Low purine diet for gout. Care Plan Goals: return to normal activities Health Concerns: SBO Plan of Treatment: advance diet, discharge to home Assessment: Improved Patient Instructions: Low Purine Diet (DC), Gout (GEN) Discharge Date/Time: 06/17/21 15:51
[2021-06-17] MEDS: Multivitamin TABLET 1 TAB PO (09:55)
[2021-06-17] MEDS: Gabapentin 300 MG CAPSULE PO (09:55)
[2021-06-17] MEDS: 0.9 % Sodium Chloride Flush 3 ML SYRINGE IVFLUSH ×2 (09:56→15:10)
[2021-06-17] MEDS: buPROPion HCl XL 300 MG TAB.ER.24H PO (09:56)
[2021-06-17] MEDS: Enoxaparin Sodium 40 MG/0.4 ML SYRINGE SUBCUT (09:56)
[2021-06-17] MEDS: Indomethacin 25 MG CAPSULE PO ×2 (11:10→15:10)
[2021-06-17 11:19] VITALS: BP 116/60; PULSE 78; RESP 18; TEMP 36.9; O2SAT 95
--- NOTE | 2021-06-17 12:45 | MHC.CM.PN ---
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 PATIENT IS 65 YR OLD ADMITTED WITH SMALL BOWEL OBSTRUCTION AND PER DOCUMENTATION THIS IS NOW RESOLVED. SHE IS TOLERATING SOLIDS, AND RETURN OF GOOD GI FUNCTION,, PATIENT IS NOW COMPLAINING OF SEVERE RIGHT GREAT BIG TOE .PLAN TO GET X-RAY OF FOOT,URIC ACID LEVBEL WITH POSSIBLE DISCHARGE TOPDAY HOME DISCHARGE PLAN HOME HOME WITH SPOUSE , NO SERVICES POSSIBLE DISCHARGE LATER TODAY TRANSPORTATION SPOUSE PCP DR LAW SAHNI PATIENT INSTRUCTED TO CALL FOR [facility] DISCHARGE
== END 2021-06-17 15:51 | disposition home or self-care (01) | DRG 390 ==
LOC: HO.ED 21:47 → HO.EDOVER 21:56 → HO.S3 06-12 14:22
PROVIDERS: Physician Assistant; Physician Assistant Surgical; Admitting Provider Surgery; Emergency Provider Internal Medicine; PCP Internal Medicine; Visit Provider Surgery
DX: K56.600 Partial intestinal obstruction, unspecified as to cause (principal); G35 Multiple sclerosis; K21.9 Gastro-esophageal reflux disease without esophagitis; Z87.891 Personal history of nicotine dependence; Z20.822 Contact with and (suspected) exposure to COVID-19; Z88.0 Allergy status to penicillin; Z79.890 Hormone replacement therapy; Z79.899 Other long term (current) drug therapy
CPT/HCPCS: 36415; 71045; 73620; 74018; 74176; 80048; 80076; 83690; 83735; 84550; 85007; 85025; 85027; 87635; 93005; 99285; J0131; J1650; J1885; J2060; J2405; J2765

== ENCOUNTER 2021-06-25 15:38 | Outpatient (REF) | payer MEDICARE, OTHER, SELFPAY ==
[2021-06-25 15:52] LABS: MANUAL DIFF FLAG NO
[2021-06-25 16:09] LABS: Basophils Absolute Auto 0.1 X10*3/uL (0.0-0.2); Basophils Percent Auto 0.8 % (0-2); Eosinophils Absolute Auto 0.3 X10*3/uL (0.0-0.4); Eosinophils Percent Auto 4.7 % (0-4); Hematocrit 37.4 % (37.0-47.0); Hemoglobin 12.5 g/dl (12.0-16.0); Imm Gran Abs Auto 0.02 X10*3/uL (0.00-0.03); Imm Gran Pct Auto 0.3 % (0.0-0.4); Lymphocytes Absolute Auto 1.5 X10*3/uL (1.2-4.9); Lymphocytes Percent Auto 24.5 % (20-40); Mean Corpuscular HGB Conc 33.4 g/dl (31.0-35.0); Mean Corpuscular Hemoglobin 30.6 pg (27.0-33.0); Mean Corpuscular Volume 91.4 fL (80.0-98.0); Mean Platelet Volume 9.7 fL (9.4-12.3); Monocytes Absolute Auto 0.4 X10*3/uL (0.1-1.2); Monocytes Percent Auto 7.4 % (2-11); Neutrophils Absolute Auto 3.7 x10*3/uL (2.0-8.3); Neutrophils Percent Auto 62.3 % (45-73); Platelet Count 307 X10*3/uL (160-400); Red Blood Count 4.09 X10*6/uL (4.20-5.50); Red Cell Distribution Width 13.2 % (11.0-16.0); White Blood Count 5.9 X10*3/uL (4.8-10.8)
[2021-06-25 16:49] LABS: Alanine Aminotransferase 20 U/L (0-31); Albumin Level 4.2 g/dL (3.5-5.0); Alkaline Phosphatase 80 U/L (39-117); Anion Gap 12 (12-20); Aspartate Amino Transferase 17 U/L (5-31); Bilirubin Total 0.6 mg/dL (0.0-1.0); Blood Urea Nitrogen 23 mg/dL (9-16); Calcium 9.5 mg/dL (8.4-10.2); Carbon Dioxide 29 mmol/L (22-29); Chloride 103 mmol/L (96-108); Estimated Glomerular Filt Rate > 60; Glucose Random 79 mg/dL (60-115); Sodium 140 mmol/L (135-145); Total Protein 6.7 g/dL (6.5-8.0)
[2021-06-25 17:01] LABS: Free T4 (Free Thyroxine) 1.07 ng/dL (0.71-1.85); Thyroid Stimulating Hormone 1.68 uIU/mL (0.32-4.0); Uric Acid 6.7 mg/dL (2.4-5.7)
== END 2021-06-25 15:39 | disposition home or self-care (01) ==
LOC: HO.LAB 15:38
PROVIDERS: PCP Internal Medicine; Visit Provider Internal Medicine
DX: E03.9 Hypothyroidism, unspecified (principal); M10.9 Gout, unspecified
CPT/HCPCS: 36415; 80053; 84439; 84443; 84550; 85025

== ENCOUNTER 2021-11-19 13:19 | Outpatient (REF) | payer MEDICARE, OTHER, SELFPAY ==
[2021-11-19 14:01] LABS: Influenza A PCR NEGATIVE (Negative); Influenza B PCR NEGATIVE (Negative); Resp Syncy Virus RNA Qual PCR NEGATIVE (Negative); SARS COV2 PCR INHOUSE NEGATIVE (Negative)
== END 2021-11-19 13:20 | disposition home or self-care (01) ==
LOC: HO.LNP 13:19
PROVIDERS: Visit Provider Internal Medicine
DX: Z20.822 Contact with and (suspected) exposure to COVID-19 (principal); R05.9 Cough, unspecified; J02.9 Acute pharyngitis, unspecified
CPT/HCPCS: 0241U

== ENCOUNTER 2022-02-07 10:31 | Outpatient (REF) | payer MEDICARE, OTHER, SELFPAY ==
[2022-02-07 13:29] LABS: MANUAL DIFF FLAG NO
[2022-02-07 13:32] LABS: Basophils Absolute Auto 0.1 X10*3/uL (0.0-0.2); Basophils Percent Auto 1.7 % (0-2); Eosinophils Absolute Auto 0.3 X10*3/uL (0.0-0.4); Eosinophils Percent Auto 8.8 % (0-4); Hematocrit 39.4 % (37.0-47.0); Hemoglobin 12.9 g/dl (12.0-16.0); Imm Gran Abs Auto 0.01 X10*3/uL (0.00-0.03); Imm Gran Pct Auto 0.3 % (0.0-0.4); Lymphocytes Absolute Auto 0.9 X10*3/uL (1.2-4.9); Lymphocytes Percent Auto 24.3 % (20-40); Mean Corpuscular HGB Conc 32.7 g/dl (31.0-35.0); Mean Corpuscular Volume 91.6 fL (80.0-98.0); Mean Platelet Volume 10.5 fL (9.4-12.3); Monocytes Absolute Auto 0.3 X10*3/uL (0.1-1.2); Monocytes Percent Auto 7.7 % (2-11); Neutrophils Absolute Auto 2.1 x10*3/uL (2.0-8.3); Neutrophils Percent Auto 57.2 % (45-73); Platelet Count 216 X10*3/uL (160-400); Red Cell Distribution Width 13.7 % (11.0-16.0); White Blood Count 3.6 X10*3/uL (4.8-10.8)
[2022-02-07 13:44] LABS: Alanine Aminotransferase 16 U/L (0-31); Albumin Level 4.4 g/dL (3.5-5.0); Alkaline Phosphatase 73 U/L (39-117); Anion Gap 10 (12-20); Aspartate Amino Transferase 16 U/L (5-31); Bilirubin Total 0.5 mg/dL (0.0-1.0); Blood Urea Nitrogen 21 mg/dL (9-16); Calcium 9.3 mg/dL (8.4-10.2); Carbon Dioxide 28 mmol/L (22-29); Chloride 106 mmol/L (96-108); Estimated Glomerular Filt Rate > 60; Glucose Random 84 mg/dL (60-115); Potassium 4.3 mmol/L (3.3-5.1); Sodium 140 mmol/L (135-145); Total Protein 6.9 g/dL (6.5-8.0); Uric Acid 6.2 mg/dL (2.4-5.7)
[2022-02-07 14:04] LABS: Free T4 (Free Thyroxine) 1.16 ng/dL (0.71-1.85)
== END 2022-02-07 10:32 | disposition home or self-care (01) ==
LOC: HO.10HDL 10:31
PROVIDERS: Visit Provider Internal Medicine
DX: E03.9 Hypothyroidism, unspecified (principal); G35 Multiple sclerosis; M10.9 Gout, unspecified
CPT/HCPCS: 36415; 80053; 84439; 84443; 84550; 85025

== ENCOUNTER 2022-03-01 18:14 | Emergency (ER) | payer MEDICARE, OTHER, SELFPAY ==
--- NOTE | ~2022-03-01 | XR_ITS ---
EXAMINATION: XR CHEST CLINICAL INFORMATION: Cough. COMPARISON: 06/11/2021 chest. TECHNIQUE: Frontal view of the chest was obtained. FINDINGS: The lungs are fairly well-expanded and clear. The heart size and pulmonary vascularity is normal. No gross bony abnormality seen. XR/XR chest 1V IMPRESSION: Unremarkable chest examination.
[2022-03-01 19:18] VITALS: BP 161/90; PULSE 82; RESP 15; TEMP 38.5; O2SAT 98; BMI 31.5
[2022-03-01] MEDS: Acetaminophen 325 MG TABLET 975 MG PO (19:32)
[2022-03-01 19:40] LABS: Basophils Percent Auto 1.1 % (0-2); Eosinophils Absolute Auto 0.1 X10*3/uL (0.0-0.4); Eosinophils Percent Auto 3.1 % (0-4); Hematocrit 38.2 % (37.0-47.0); Hemoglobin 12.9 g/dl (12.0-16.0); Imm Gran Abs Auto 0.01 X10*3/uL (0.00-0.03); Imm Gran Pct Auto 0.3 % (0.0-0.4); Lymphocytes Absolute Auto 0.3 X10*3/uL (1.2-4.9); Lymphocytes Percent Auto 9.2 % (20-40); MANUAL DIFF FLAG NO; Mean Corpuscular HGB Conc 33.8 g/dl (31.0-35.0); Mean Corpuscular Hemoglobin 30.4 pg (27.0-33.0); Mean Corpuscular Volume 90.1 fL (80.0-98.0); Mean Platelet Volume 9.5 fL (9.4-12.3); Monocytes Absolute Auto 0.4 X10*3/uL (0.1-1.2); Monocytes Percent Auto 11.2 % (2-11); Neutrophils Absolute Auto 2.7 x10*3/uL (2.0-8.3); Neutrophils Percent Auto 75.1 % (45-73); Platelet Count 178 X10*3/uL (160-400); Red Blood Count 4.24 X10*6/uL (4.20-5.50); Red Cell Distribution Width 13.5 % (11.0-16.0); White Blood Count 3.6 X10*3/uL (4.8-10.8)
[2022-03-01 19:49] LABS: COVID-19 Test Positive (Negative); IDNOW Serial# 16C4AD1C
[2022-03-01 19:52] LABS: Lactic Acid 0.7 mmol/L (0.5-2.0)
[2022-03-01 19:57] LABS: Alanine Aminotransferase 12 U/L (0-31); Albumin Level 4.6 g/dL (3.5-5.0); Alkaline Phosphatase 77 U/L (39-117); Anion Gap 15 (12-20); Aspartate Amino Transferase 17 U/L (5-31); Bilirubin Total 0.3 mg/dL (0.0-1.0); Blood Urea Nitrogen 17 mg/dL (9-16); Calcium 8.6 mg/dL (8.4-10.2); Carbon Dioxide 24 mmol/L (22-29); Chloride 101 mmol/L (96-108); Creatinine Clr Calc Pharmacy 65.2; Estimated Glomerular Filt Rate > 60; Glucose Random 87 mg/dL (60-115); Potassium 3.8 mmol/L (3.3-5.1); Sodium 136 mmol/L (135-145); Total Protein 7.2 g/dL (6.5-8.0)
--- NOTE | 2022-03-01 19:57 | ED.GENADULT ---
HPI - General Adult General Chief complaint: General Medical Stated complaint: headache Time Seen by Provider: 03/01/22 19:57 Source: patient, family (, [place]) and other (Expect note from Dr. Garrison) Mode of arrival: ambulatory Limitations: no limitations History of Present Illness HPI narrative: 66-year-old female who presents emergency department for evaluation of weakness, headache, cough x2 days. The patient has a history of MS but has not had a flare up in many years. The patient was feeling very weak and was concerned that she had a flare-up of her MS therefore, she came to the emergency department for evaluation. While she was in the emergency department waiting room/triage area she called her neurologist Dr. Garrison who then called an expect note into the emergency department. The patient states that she has had a cough which is nonproductive x2 days. She had subjective fever and chills at home. She has also had a sore throat. She denied chest pain. She states she does have mild shortness of breath but no dyspnea on exertion. The patient states she has a history of migraine headaches and she developed a migraine headache over the past 2 days. She states the headache has been intermittent in varies from 6/10 to 10/10. She describes the pain as a vice wrapped around her head that is constant but waxes and wanes in intensity. She states that she is feeling very weak and this is how she often feels when she has a flare-up of her MS. The patient did take ibuprofen and Tylenol with some relief of her headache. She was feeling dizzy and off balance. She states she has been drinking fluid and has had a good appetite. The patient received 3 COVID-19 vaccinations. The patient states that in December 2021 she had acute cholecystitis with a retained biliary stone and had surgical removal of the gallbladder as well as an ERCP to remove the stone. She states that she also had a hernia which was repaired at the same time. Related Data Home Medications Medication Instructions Recorded Confirmed bupropion HCl 150 mg tablet,12 hr 150 mg PO BID 08/28/20 06/11/21 sustained-release cyclobenzaprine 10 mg tablet 10 mg PO BEDTIME PRN Muscle Spasm 08/28/20 06/11/21 gabapentin 300 mg capsule 300 mg PO DAILY 08/28/20 06/11/21 multivitamin 1 tab PO DAILY 08/28/20 06/11/21 trazodone 50 mg tablet 50 mg PO BEDTIME PRN Insomnia 08/28/20 06/11/21 gabapentin 300 mg capsule 1,200 mg PO BEDTIME 06/11/21 06/11/21 levothyroxine 75 mcg tablet 1 tab PO SUTUWETHSA@0600 06/11/21 06/11/21 levothyroxine 75 mcg tablet 1.5 tab PO MOFR@0630 06/11/21 06/11/21 Previous Rx's Medication Instructions Recorded indomethacin 25 mg capsule 25 mg PO TID #60 caps 06/17/21 Allergies Allergy/AdvReac Type Severity Reaction Status Date / Time erythromycin base Allergy Severe Nausea and Verified 06/11/21 16:31 Vomiting Penicillins Allergy Severe Anaphylaxis Verified 06/11/21 16:31 bee pollen [bee stings] AdvReac Swelling Verified 06/11/21 16:31 ivory soap AdvReac Intermediate skin Uncoded 09/01/20 10:11 sloughing Review of Systems Review of Systems: Yes all other systems are reviewed and are negative [facility] Past Medical History [facility] Narrative: Social history: She is her is here in the emergency department with her. She denies tobacco use but she is a former smoker and quit 30 years ago. She rarely drinks alcohol, she denies drug use. Medical History Arthritis Asthma Back pain Bronchitis Cough Depression GERD (gastroesophageal reflux disease) History of postoperative nausea Hx of degenerative disc disease Hx of fall Hx of motion sickness Multiple sclerosis Sleep apnea Thyroid disease Surgical History H/O colonoscopy Hx of appendectomy Hx of dilation and curettage Hx of hysterectomy Hx of tonsillectomy Social History Social History Household Members: Spouse and Children Housing: House Are you a primary caretaker grounds to a significant other at home: No Do you presently have visiting nurse or other home services: No Alcohol intake: current Alcohol intake frequency: holidays/special occasions only Patient Tobacco Use Status: Former Tobacco user Advance Directives: No service: No Current occupational status: retired Physical Exam ED Vital Signs: Vital Signs - 24 hr 03/01/22 19:18 Temperature 101.3 F H Pulse Rate 82 Respiratory Rate 15 Blood Pressure 161/90 H Pulse Oximetry 98 Oxygen Delivery Method Room Air BMI result Body Mass Index 31.5 Const General: cooperative and no acute distress Orientation/consciousness: oriented to person and oriented to place Limitations: no limitations HENMT Head: Yes normal to inspection, Yes normocephalic and Yes atraumatic Ears: external ears normal General nose exam: Normal external nose present Face and sinus: Yes normal facial exam Mouth: Normal oral and palatal mucosa present Throat: Yes posterior oropharynx normal Eyes General: appearance normal, both eyes and all related structures Pupils: Equal, round and reactive pupils present Neck Neck: Yes normal visual inspection, Yes no lymphadenopathy, Yes trachea midline and Yes supple Chest Chest palpation & inspection: normal inspection of the chest and normal palpation of entire chest wall Resp Effort & Inspection: normal respiratory effort and able to speak in complete sentences Auscultation: clear to auscultation bilaterally Cardio Rate: regular rate Rhythm: regular rhythm Heart sounds: S1 normal heart sound present, S2 normal heart sound present and no murmurs GI Inspection: Yes normal to inspection Palpation (GI): Soft to palpation, nontender and no guarding Auscultation: normal bowel sounds General: Yes no CVA tenderness Back/Spine/Pelvis Back: no CVA tenderness Skin General skin exam: no rashes or lesions noted Neuro General: oriented to person and oriented to place Cranial nerves: Yes CN's II-XII intact bilaterally and Yes Equal, round and reactive pupils present Cognition (Neuro): normal cognition Motor exam (neuro): 5/5 motor strength present throughout Coordination: [id number] test normal and [id number] test normal Extrem General: Yes normal to inspection Psych Appearance: grossly normal Speech and movement: Normal speech and movement present Affect: normal affect Attitude: cooperative Thought process: Normal thought process present Thought content: Normal thought content present Course Course Course Narrative: 66-year-old female patient who presents emergency department for evaluation of 2 days of nonproductive cough, headache, weakness, sore throat, shortness of breath and fatigue. Patient does have a history of MS and she was concerned that she was having a flare-up of her MS. Patient's triage vital signs revealed an elevated blood pressure of 161/90 and a fever of 101.3 degrees F. Respiratory rate O2 saturation were normal. Patient's physical examination was unremarkable. 2102: Laboratory evaluation: WBC low 3600-this is chronic, 75 neutrophils 9 lymphocytes, 11 monocytes, low absolute neutrophil count of 0.3. Comprehensive metabolic panel was unremarkable. Lactic acid was normal at 0.7. COVID-19 was positive. Radiology evaluation: Chest x-ray one view-reviewed by me, no obvious infiltrates noted. The patient's presentation examination and laboratory findings are consistent with a COVID-19 infection. At this time I believe that the viral infection is causing her to have flare-up of her weakness but not a flare-up of her MS. I did discuss this with Dr. Garrison and he agrees. I did do a drug interaction check with the patient's medications and Paxlovid in their to many significant side effects therefore this medication is not option. The patient may benefit from remdesivir IV x3 days and I will refer the patient to the [facility]. Medical Decision Making Lab Data Result diagrams: 03/01/22 19:27 03/01/22 19:27 Labs: Lab Results 03/01/22 03/01/22 03/01/22 Range/Units 19:27 19:27 19:27 WBC 3.6 L (4.8-10.8) X10*3/uL RBC 4.24 (4.20-5.50) X10*6/uL Hgb 12.9 (12.0-16.0) g/dl Hct 38.2 (37.0-47.0) % MCV 90.1 (80.0-98.0) fL MCH 30.4 (27.0-33.0) pg MCHC 33.8 (31.0-35.0) g/dl RDW 13.5 (11.0-16.0) % Plt Count 178 (160-400) X10*3/uL MPV 9.5 (9.4-12.3) fL Immature Gran % (Auto) 0.3 (0.0-0.4) % Neut % (Auto) 75.1 H (45-73) % Lymph % (Auto) 9.2 L (20-40) % Hettinger % (Auto) 11.2 H (2-11) % Eos % (Auto) 3.1 (0-4) % Baso % (Auto) 1.1 (0-2) % Lymph # (Auto) 0.3 L (1.2-4.9) X10*3/uL Hettinger # (Auto) 0.4 (0.1-1.2) X10*3/uL Eos # (Auto) 0.1 (0.0-0.4) X10*3/uL Baso # (Auto) 0.0 (0.0-0.2) X10*3/uL Abs Immat Gran (auto) 0.01 (0.00-0.03) X10*3/uL Absolute Neuts (auto) 2.7 (2.0-8.3) x10*3/uL Absolute Nucleated RBC 0.000 (0.0-0.012) X10*3/uL Nucleated RBC % (auto) 0.0 (0.0-0.2) /100WBC Sodium 136 (135-145) mmol/L Potassium 3.8 (3.3-5.1) mmol/L Chloride 101 (96-108) mmol/L Carbon Dioxide 24 (22-29) mmol/L Anion Gap 15 (12-20) BUN 17 H (9-16) mg/dL Creatinine 0.83 (0.5-1.4) mg/dL Estim Creat Clear Calc 65.2 Estimated GFR > 60 Random Glucose 87 (60-115) mg/dL Lactic Acid (0.5-2.0) mmol/L Calcium 8.6 D (8.4-10.2) mg/dL Total Bilirubin 0.3 (0.0-1.0) mg/dL AST 17 (5-31) U/L ALT 12 (0-31) U/L Alkaline Phosphatase 77 (39-117) U/L Total Protein 7.2 (6.5-8.0) g/dL Albumin 4.6 (3.5-5.0) g/dL COVID-19 (IRAJ) Positive A (Negative) COVID-19 Clin Com See Note 03/01/22 Range/Units 19:27 WBC (4.8-10.8) X10*3/uL RBC (4.20-5.50) X10*6/uL Hgb (12.0-16.0) g/dl Hct (37.0-47.0) % MCV (80.0-98.0) fL MCH (27.0-33.0) pg MCHC (31.0-35.0) g/dl RDW (11.0-16.0) % Plt Count (160-400) X10*3/uL MPV (9.4-12.3) fL Immature Gran % (Auto) (0.0-0.4) % Neut % (Auto) (45-73) % Lymph % (Auto) (20-40) % Hettinger % (Auto) (2-11) % Eos % (Auto) (0-4) % Baso % (Auto) (0-2) % Lymph # (Auto) (1.2-4.9) X10*3/uL Hettinger # (Auto) (0.1-1.2) X10*3/uL Eos # (Auto) (0.0-0.4) X10*3/uL Baso # (Auto) (0.0-0.2) X10*3/uL Abs Immat Gran (auto) (0.00-0.03) X10*3/uL Absolute Neuts (auto) (2.0-8.3) x10*3/uL Absolute Nucleated RBC (0.0-0.012) X10*3/uL Nucleated RBC % (auto) (0.0-0.2) /100WBC Sodium (135-145) mmol/L Potassium (3.3-5.1) mmol/L Chloride (96-108) mmol/L Carbon Dioxide (22-29) mmol/L Anion Gap (12-20) BUN (9-16) mg/dL Creatinine (0.5-1.4) mg/dL Estim Creat Clear Calc Estimated GFR Random Glucose (60-115) mg/dL Lactic Acid 0.7 (0.5-2.0) mmol/L Calcium (8.4-10.2) mg/dL Total Bilirubin (0.0-1.0) mg/dL AST (5-31) U/L ALT (0-31) U/L Alkaline Phosphatase (39-117) U/L Total Protein (6.5-8.0) g/dL Albumin (3.5-5.0) g/dL COVID-19 (IRAJ) (Negative) COVID-19 Clin Com Discharge Plan Discharge Clinical Impression: COVID-19 virus infection Patient Disposition: Home, Self-Care Instructions: COVID-19 (Coronavirus Disease 2019) (ED) Additional Instructions: Your laboratory evaluation was unremarkable. Your chest x-ray does not reveal any obvious pneumonia at this time. Your COVID-19 test was positive. Your symptoms are consistent with a COVID-19 infection and this infection is making your MS weakness worse. I did discuss your symptoms with your neurologist Dr. Garrison and we both believe that you are not having a flare-up of your MS but the viruses making her weakness worse. Also people feel very weak and fatigued with a COVID-19 infection. Take ibuprofen 200 mg pills, 3 pills every 6 hours as needed for pain. Take Tylenol (acetaminophen) 500 mg pills, 2 pills every 4 to 6 hours as needed for pain. I am referring you to the [facility] for 3 days of IV remdesivir. I did emailed the referral to the clinic, you should hear from them in 1-2 days and they should schedule an appointment. Follow-up with your doctor in 2 days. Please return to the emergency department if your symptoms get worse or if you develop any symptoms that are concerning to you. Prescriptions: No Action multivitamin Tablet 1 tab PO DAILY cyclobenzaprine 10 mg tablet 10 mg PO BEDTIME PRN (Reason: Muscle Spasm) bupropion HCl 150 mg tablet sustained-release 12 hr 150 mg PO BID trazodone 50 mg tablet 50 mg PO BEDTIME PRN (Reason: Insomnia) gabapentin 300 mg capsule 300 mg PO DAILY levothyroxine 75 mcg tablet 1 tab PO SUTUWETHSA@0600 levothyroxine 75 mcg tablet 1.5 tab PO MOFR@0630 gabapentin 300 mg capsule 1,200 mg PO BEDTIME indomethacin 25 mg capsule 25 mg PO TID Qty: 60 0RF Rx Instructions: administer with food or milk
== END 2022-03-01 21:39 | disposition home or self-care (01) ==
PROVIDERS: Emergency Provider Emergency Medicine Emergency Medical Services; PCP Internal Medicine
DX: U07.1 COVID-19 (principal); R51.9 Headache, unspecified; Z79.899 Other long term (current) drug therapy
CPT/HCPCS: 36415; 71045; 80053; 83605; 85025; 87040; 87635; 99283

== ENCOUNTER 2022-05-16 14:11 | Emergency (ER) | payer MEDICARE, OTHER, SELFPAY ==
--- NOTE | ~2022-05-16 | US_ITS ---
EXAMINATION: US VENOUS ULTRASOUND WITH DOPPLER LOWER EXTREMITY, LEFT CLINICAL INFORMATION: Calf pain COMPARISON: None TECHNIQUE: Ultrasound of the deep veins is performed from the hip to the calf with compression sonography and color and pulse Doppler assessment. Spectral analysis with color-flow imaging is performed. FINDINGS: There is normal venous compression and respiratory variation and augmented flow. The visualized common femoral vein, superficial femoral vein, profunda femoral vein, popliteal vein, and the trifurcation region shows no evidence of deep venous thrombosis. There is no significant popliteal fossa cyst. If the patient's symptoms persist, followup ultrasound in 5 days 7 days might be of value to exclude proximal propagation from a non-visualized calf vein. US/US venous duplex LE LT IMPRESSION: No DVT demonstrated in the left lower extremity.
[2022-05-16 15:20] VITALS: BP 148/88; PULSE 63; RESP 18; TEMP 36.3; O2SAT 97; BMI 31.8
--- NOTE | 2022-05-16 20:39 | ED.GENADULT ---
HPI - General Adult General Chief complaint: Extremity Injury, Lower Stated complaint: L ankle/leg pain Time Seen by Provider: 05/16/22 20:39 Source: patient Mode of arrival: ambulatory Limitations: no limitations History of Present Illness HPI narrative: Patient is a 66 year old assigned female at with no reported medical history presenting to the emergency department today with left lower leg pain. Patient states that when she steps or stands on her left lower leg, she has shooting pain up her left lower leg. Patient denies any dizziness, lightheadedness, abdominal pain, nausea, vomiting, fever, chills, blurry vision, double vision, loss of vision, chest pain, difficulty breathing, shortness of breath, back pain, night sweats, pain with urination, increased urinary frequency, increased urinary urgency, blood in her urine or stool, syncope or a near syncopal episode, recent trauma or falls, bowel incontinence, bladder incontinence, bowel retention, bladder retention, or any other complaints at this time. Onset (ago): week(s) (1) Location: left and lower extremity Severity: mild Severity scale (1-10): 3 Quality: dull Pain Consistency: constant Relieving factors: none Exacerbating factors: none Associated symptoms: denies other symptoms Treatments prior to arrival: none Related Data Home Medications Medication Instructions Recorded Confirmed bupropion HCl 150 mg tablet,12 hr 150 mg PO BID 08/28/20 06/11/21 sustained-release cyclobenzaprine 10 mg tablet 10 mg PO BEDTIME PRN Muscle Spasm 08/28/20 06/11/21 gabapentin 300 mg capsule 300 mg PO DAILY 08/28/20 06/11/21 multivitamin 1 tab PO DAILY 08/28/20 06/11/21 trazodone 50 mg tablet 50 mg PO BEDTIME PRN Insomnia 08/28/20 06/11/21 gabapentin 300 mg capsule 1,200 mg PO BEDTIME 06/11/21 06/11/21 levothyroxine 75 mcg tablet 1 tab PO SUTUWETHSA@0600 06/11/21 06/11/21 levothyroxine 75 mcg tablet 1.5 tab PO MOFR@0630 06/11/21 06/11/21 Previous Rx's Medication Instructions Recorded indomethacin 25 mg capsule 25 mg PO TID #60 caps 06/17/21 prednisone 20 mg tablet 20 mg PO DAILY 12 days #26 tabs 05/16/22 Allergies Allergy/AdvReac Type Severity Reaction Status Date / Time erythromycin base Allergy Severe Nausea and Verified 05/16/22 15:20 Vomiting Penicillins Allergy Severe Anaphylaxis Verified 05/16/22 15:20 bee pollen [bee stings] AdvReac Swelling Verified 05/16/22 15:20 ivory soap AdvReac Intermediate skin Uncoded 09/01/20 10:11 sloughing Review of Systems Constitutional: Constitutional: Reports no additional constitutional complaints, Denies chills, Denies fever(s) and Denies night sweats Eyes: Eyes: Reports no additional eye complaints, Denies blurry vision, Denies change in vision, Denies diplopia, Denies eye discharge, Denies loss of vision and Denies eye pain ENT: Denies dizziness Cardiovascular: Cardiovascular: Reports no additional cardiovascular complaints, Denies chest pain, Denies lightheadedness, Denies Loss of Consciousness and Denies dyspnea Respiratory: Respiratory: Reports no additional respiratory complaints and Denies dyspnea Gastrointestinal: Gastrointestinal: Reports no additional gastrointestinal complaints, Denies abdominal pain, Denies melena, Denies hematochezia, Denies change in bowel habits and Denies change in stool character Genitourinary: Genitourinary: Denies hematuria, Denies urinary frequency, Denies dysuria, Denies urinary incontinence, Denies urinary hesitancy and Denies urinary urgency Musculoskeletal: Musculoskeletal: Reports no additional musculoskeletal complaints, Denies numbness and Denies tingling Comments: left lower leg pain Neurologic: Denies dizziness, Denies loss of vision, Denies numbness and Denies tingling Psychiatric: Psychiatric: Reports no additional psychiatric complaints Endocrine: Endocrine: Reports no additional endocrine complaints Hematologic/Lymphatic: Hematologic/Lymphatic: Reports no additional hematologic/lymphatic complaints Allergic/Immunologic: Allergic/Immunologic: Reports no additional allergic/immunologic complaints PMFSH Past Medical History Attestation statement: The following information was validated with the patient. Source: old records reviewed Medical History Arthritis Asthma Back pain Bronchitis Cough Depression GERD (gastroesophageal reflux disease) History of postoperative nausea Hx of degenerative disc disease Hx of fall Hx of motion sickness Multiple sclerosis Sleep apnea Thyroid disease Surgical History H/O colonoscopy Hx of appendectomy Hx of dilation and curettage Hx of hysterectomy Hx of tonsillectomy Social History Social History Household Members: Spouse and Children Housing: House Are you a primary home visit field care manager to a significant other at home: No Do you presently have visiting nurse or other home services: No Alcohol intake: current Alcohol intake frequency: holidays/special occasions only Patient Tobacco Use Status: Former Tobacco user Advance Directives: No Advance Directives Information Provided: No service: No Current occupational status: retired Physical Exam ED Vital Signs: Vital Signs - 24 hr 05/16/22 15:20 Temperature 97.4 F Pulse Rate 63 Respiratory Rate 18 Blood Pressure 148/88 H Pulse Oximetry 97 Oxygen Delivery Method Room Air BMI result Body Mass Index 31.8 Const General: cooperative, no acute distress, alert and awake Nutritional Appearance: well nourished Orientation/consciousness: patient oriented x3 Limitations: no limitations HENMT Head: Yes normal to inspection and Yes atraumatic Ears: hearing grossly normal bilaterally and external ears normal General nose exam: Normal external nose present, no nasal discharge noted and no epistaxis Face and sinus: Yes normal facial exam, No abrasion and No laceration Mouth: Normal oral and palatal mucosa present, no drooling and no muffled voice Eyes General: appearance normal, both eyes and all related structures Periorbital: periorbital findings normal Eyelids: Yes eyelids normal Conjunctivae: conjunctivae normal Pupils: Equal, round and reactive pupils present EOM: EOMs intact bilaterally Neck Neck: Yes normal visual inspection, Yes full ROM and Yes no lymphadenopathy Chest Chest palpation & inspection: normal inspection of the chest Resp Effort & Inspection: normal respiratory effort and able to speak in complete sentences Auscultation: clear to auscultation bilaterally Cardio Rate: regular rate Rhythm: regular rhythm GI Inspection: Yes normal to inspection Palpation (GI): Soft to palpation, not firm, nontender, no guarding and not rigid Neuro General: patient oriented x3 and moves all extremities Cranial nerves: Yes Equal, round and reactive pupils present Cognition (Neuro): normal cognition Motor exam (neuro): 5/5 motor strength present throughout Sensory Exam: Normal double simultaneous stimulation for sensation Coordination: [id number] test normal Extrem General: Yes normal to inspection, Yes full ROM and Yes capillary refill normal Psych Appearance: grossly normal Mental Status: mental status grossly normal Affect: normal affect Attitude: cooperative Thought process: Normal thought process present Thought content: Normal thought content present Insight: Good insight present (Psych) Medical Decision Making MDM Narrative Medical decision making narrative: Patient is a 66 year old assigned female at with no reported medical history presenting to the emergency department today with left lower leg pain. Patient's physical exam was unremarkable. Patient's left lower leg US showed no acute process. Patient's clinical presentation is most consistent with plantar fasciatis. I explained my physical exam findings as well as all test results to the patient. I answered all questions asked by the patient. I stressed the importance of the patient taking her medication as prescribed. I stressed the importance of the patient following up with her primary care provider. I stressed the importance of the patient returning to the emergency department immediately if her symptoms were to worsen or if she were to develop any dizziness, shortness of breath, difficulty breathing, chest pain, blurry vision, loss of vision, nausea, vomiting, abdominal pain, fever, chills, back pain, or any other complaints. Patient verbalized agreement and understanding with this treatment plan and discharge. Medical Records Medical records reviewed: Yes I reviewed the patient's medical records. Imaging Data Venous US: Attestation: I personally reviewed and interpreted this imaging study as follows: My impression: No acute process. Radiologist's impression: EXAMINATION:? US VENOUS ULTRASOUND WITH DOPPLER LOWER EXTREMITY, LEFT CLINICAL INFORMATION:? Calf pain COMPARISON:? None TECHNIQUE: Ultrasound of the deep veins is performed from the hip to the calf with compression sonography and color and pulse Doppler assessment. Spectral analysis with color-flow imaging is performed. FINDINGS: There is normal venous compression and respiratory variation and augmented flow. The visualized common femoral vein, superficial femoral vein, profunda femoral vein, popliteal vein, and the trifurcation region shows no evidence of deep venous thrombosis. ? There is no significant popliteal fossa cyst. If the patient's symptoms persist, followup ultrasound in 5 days 7 days might be of value to exclude proximal propagation from a non-visualized calf vein. US/US venous duplex LE IMPRESSION: No DVT demonstrated in the left lower extremity. Dictated By: Kendrick Yao MD Signed By: Electronically signed by Kendrick Yao MD 05/16/22 7681 Discharge Plan Discharge Clinical Impression: Plantar fasciitis Patient Disposition: Home, Self-Care Instructions: Plantar Fasciitis (ED), Plantar Fasciitis Exercises (ED) Additional Instructions: Follow up with your primary care provider and a belt conveyor drier. Return to the emergency department immediately if your symptoms worsen or if you develop any dizziness, shortness of breath, difficulty breathing, chest pain, blurry vision, loss of vision, nausea, vomiting, abdominal pain, fever, chills, back pain, or any other complaints. Prescriptions: New prednisone 20 mg tablet 20 mg PO DAILY 12 Days Qty: 26 0RF Rx Instructions: Take 3 tablets for 5 days THEN; Take 2 tablets for 4 days THEN; Take 1 tablet for 3 days No Action multivitamin Tablet 1 tab PO DAILY cyclobenzaprine 10 mg tablet 10 mg PO BEDTIME PRN (Reason: Muscle Spasm) bupropion HCl 150 mg tablet sustained-release 12 hr 150 mg PO BID trazodone 50 mg tablet 50 mg PO BEDTIME PRN (Reason: Insomnia) gabapentin 300 mg capsule 300 mg PO DAILY levothyroxine 75 mcg tablet 1 tab PO SUTUWETHSA@0600 levothyroxine 75 mcg tablet 1.5 tab PO MOFR@0630 gabapentin 300 mg capsule 1,200 mg PO BEDTIME indomethacin 25 mg capsule 25 mg PO TID Qty: 60 0RF Rx Instructions: administer with food or milk Referrals: Trevor Baldwin DPM [Physician] - Andrea Leigh MD [Primary Care Provider] - Interventions: ED Discharge Assessment Last Done: 05/16/22 20:56 Discharge Date/Time: 05/16/22 20:57 Print Language: Brazilian
== END 2022-05-16 20:57 | disposition home or self-care (01) ==
PROVIDERS: Emergency Provider Internal Medicine; PCP Internal Medicine
DX: M72.2 Plantar fascial fibromatosis (principal); R60.0 Localized edema; Z79.899 Other long term (current) drug therapy
CPT/HCPCS: 93971; 99282; 99284

== ENCOUNTER 2023-02-07 12:46 | Outpatient (REF) | payer MEDICARE, OTHER, SELFPAY ==
--- NOTE | ~2023-02-07 | XR_ITS ---
EXAMINATION: XR WRIST, RIGHT CLINICAL INFORMATION: Pain right wrist COMPARISON: None available. TECHNIQUE: PA, lateral, and oblique views of the right wrist. FINDINGS: The bones and soft tissues are normal. No fracture. Alignment is anatomic with normal joint spaces. No erosions or abnormal soft tissue calcifications. XR/XR wrist RT min 3V IMPRESSION: Unremarkable right wrist exam
== END 2023-02-07 12:47 | disposition home or self-care (01) ==
LOC: HO.XRAY 12:46
PROVIDERS: PCP Internal Medicine; Visit Provider Internal Medicine
DX: M25.531 Pain in right wrist (principal); Z91.81 History of falling
CPT/HCPCS: 73110

== ENCOUNTER 2023-09-06 11:21 | Outpatient (REF) | payer MEDICARE, OTHER, SELFPAY ==
--- NOTE | ~2023-09-06 | MM_ITS ---
EXAMINATION: BONE DENSITOMETRY CLINICAL INDICATION: Menopause. COMPARISON: Previous BD dated 12/21/2018 and baseline BD dated 11/03/2011. TECHNIQUE: Using a [employer] DXA System (software version: 13.1) manufactured by [employer], dual-energy x-ray absorptiometry was performed of the lumbar spine and left hip. The images are of good technical quality. Summary results are attached. FINDINGS: LEFT FEMUR, NECK: Current: BMD 1.031 g/cm2, Z-score 1.0, T-score 0.0, normal. Prior: BMD 1.090 g/cm2. Baseline: BMD 1.144 g/cm2. LEFT FEMUR, TOTAL: Current: BMD 1.255 g/cm2, Z-score 2.7, T-score 2.0, normal, 0.1% increase from previous, 1.6% increase from baseline (<5% change is not significant). Prior: BMD 1.254 g/cm2. Baseline: BMD 1.235 g/cm2. AP SPINE L1-L3 (excluding L4): The data of L1-L4 has been changed to exclude the L4 vertebral body, because degenerative sclerosis at this level may cause overestimation of lumbar spine density. Current: BMD 1.437 g/cm2, Z-score 2.9, T-score 2.2, normal, 2.1% decrease from previous, 0.3% increase from baseline (<5% change is not significant). Prior: BMD 1.468 g/cm2. Baseline: BMD 1.432 g/cm2. IDENTIFIED RISK FACTORS: Early menopause, height loss, low calcium intake, right oophorectomy, secondary osteoporosis. HISTORY OF FRACTURE: None listed. MEDICATIONS: None listed. MM/XR DEXA axial skeleton IMPRESSION: 1. DIAGNOSIS: Normal bone density based on the lowest T-score value of 0.0 in the femoral neck applying World Health Organization criteria. 2. 10-YEAR FRACTURE RISK PREDICTION, FRAX: According to the guidelines, FRAX calculation should only be performed on patients in the osteopenia bone density category. Therefore, FRAX was not performed on this patient. 3. Treatment Recommendations: NOF guidelines recommend consideration for treatment in postmenopausal women and men age 50 and older presenting with the following: -A hip or vertebral (clinical or morphometric) fracture. -T-score less than or equal to -2.5 at the femoral neck or spine after appropriate evaluation to exclude secondary causes. -Low bone mass at the hip or spine and a 10-year fracture probability by FRAX of greater than or equal to 3% for hip fracture or greater than or equal to 20% for major osteoporotic fracture based on the [place] adapted WHO algorithm. 4. Other Recommendations: All treatment decisions require clinical judgment and consideration of individual patient factors, including patient preferences, comorbidities, previous drug use, risk factors not captured in the FRAX model (e.g. frailty, falls, vitamin D deficiency, increased bone turnover, interval significant decline in bone density) and possible under or overestimation of fracture risk by FRAX. FUTURE SCAN RECOMMENDATION: People with diagnosed cases of osteoporosis or at high risk for fracture should have regular bone mineral density tests. For patients eligible for Medicare, routine testing is allowed once every 2 years. The testing frequency can be increased to one year for patients who have rapidly progressing disease, those who are receiving or discontinuing medical therapy to restore bone mass, or have additional risk factors.
== END 2023-09-06 11:22 | disposition home or self-care (01) ==
LOC: HO.MAMMO 11:21
PROVIDERS: PCP Internal Medicine; Visit Provider Internal Medicine
DX: Z12.31 Encounter for screening mammogram for malignant neoplasm of breast (principal); Z13.820 Encounter for screening for osteoporosis; Z78.0 Asymptomatic menopausal state
CPT/HCPCS: 77063; 77067; 77080

== ENCOUNTER → 2023-09-06 11:30 | Outpatient (BNV) | payer MEDICARE, OTHER, SELFPAY | PROVIDERS: PCP Internal Medicine; Visit Provider Radiology Diagnostic Radiology | DX: Z12.31 Encounter for screening mammogram for malignant neoplasm of breast (principal) | CPT/HCPCS: 77063; 77067 ==

== ENCOUNTER 2024-01-30 10:00 | Outpatient (RCR) | payer MEDICARE, OTHER, SELFPAY ==
--- NOTE | 2023-12-21 18:26 | MHC.PT.EP ---
[facility] [place] Office [place] Office [place] Office [address] Luis Alberto Quezada [address] [phone] F: [phone] F: [phone] F: [phone] F: [phone] Physical Therapy Plan of Care Date of Evaluation: 12/20/23 Date of Surgery: ~2 years ago Diagnosis: Dorsalgia, unspecified Assessment: Pt is a pleasant 68yo F who presents to PT with low back pain. She reports pain started after falling down the stairs in 2016. She has history of low back surgery ~2 years ago. She presents to PT with current impairments in pain, decreased lumbar ROM, decreased core stabilization, soft tissue restrictions, impaired posture, and impaired gait. She is limited functionally by getting in/out of bed, leaning forward, prolonged sitting, prolonged standing, changing positions, and playing with her dogs. She is a good candidate for skilled PT in order to address current impairments in order to facilitate return to PLOF. She is recommended to be seen 2x/week for 4 weeks and will be reassessed at that time Frequency and Duration: The patient will be seen 2x/week for 4 weeks Short Term Goals: Pt will be I with HEP to promote self management of symptoms Pt will improve lumbar flexion to at least 50% Hoe Worker Goals: Pt will demonstrate ability to squat and pickle pumper up object with proper mechanics and minimal to no discomfort Pt will tolerate standing and walking > 20 min with improved posture with pain < 3/10 Pt will demonstrate improvements in function as evidenced by statistically significant improvement in Modified Oswestry Low Back Pain Disability Questionnaire Treatment Plan: Modalities to reduce pain, spasms and effusion. Manual therapy to restore motion and function. Therapeutic exercise to improve strength and flexibility. Neuromuscular re-education for posture and balance. Therapeutic activities to return to functional activities of daily living. Electronically signed by: Yadira Bruner, PT, DPT Please sign and return to therapist. Thank you for your referral.
--- NOTE | 2024-04-22 11:17 | MHC.PT.DC ---
[facility] [place] Office [place] Office [place] Office [address] Luis Alberto Quezada [address] [phone] F: [phone] F: [phone] F: [phone] F: [phone] Physical Therapy Discharge Report Diagnosis: Dorsalgia, unspecified Date of Surgery: ~2 years ago Date of Evaluation: 12/20/23 Date of Discharge: 04/22/24 Treatments to Date: 6 Cancellations to Date: 4 No Shows to Date: 1 Discharge Status: Discharge Summary: Pt was seen for PT from 12/20/23-01/30/24. Her last attended appointment was 01/30/24. She has had many cancellations and 1 no show appointment since SOC. She is being D/C from skilled PT as she has not attended PT in >30 days and has not called to reschedule. Pt current level of function unknown at this time Electronically signed by: Yadira Bruner, PT, DPT Please sign and return to therapist. Thank you for your referral.
== END 2024-04-22 11:16 | disposition home or self-care (01) ==
LOC: HO.PT 10:00
PROVIDERS: PCP Internal Medicine; Visit Provider Internal Medicine
DX: M54.50 Low back pain, unspecified (principal)
CPT/HCPCS: 97110; 97140; 97162

== ENCOUNTER 2024-02-19 10:50 | Outpatient (REF) | payer MEDICARE, OTHER, SELFPAY ==
[2024-02-19 11:55] LABS: MANUAL DIFF FLAG NO
[2024-02-19 11:57] LABS: Basophils Absolute Auto 0.1 X10*3/uL (0.0-0.2); Basophils Percent Auto 1.7 % (0-2); Eosinophils Absolute Auto 0.3 X10*3/uL (0.0-0.4); Eosinophils Percent Auto 7.1 % (0-4); Hematocrit 39.1 % (37.0-47.0); Hemoglobin 13.4 g/dl (12.0-16.0); Imm Gran Abs Auto 0.02 X10*3/uL (0.00-0.03); Imm Gran Pct Auto 0.4 % (0.0-0.4); Lymphocytes Absolute Auto 1.2 X10*3/uL (1.2-4.9); Lymphocytes Percent Auto 24.2 % (20-40); Mean Corpuscular HGB Conc 34.3 g/dl (31.0-35.0); Mean Corpuscular Hemoglobin 31.1 pg (27.0-33.0); Mean Corpuscular Volume 90.7 fL (80.0-98.0); Monocytes Absolute Auto 0.4 X10*3/uL (0.1-1.2); Neutrophils Absolute Auto 2.8 x10*3/uL (2.0-8.3); Neutrophils Percent Auto 58.6 % (45-73); Platelet Count 220 X10*3/uL (160-400); Red Blood Count 4.31 X10*6/uL (4.20-5.50); Red Cell Distribution Width 13.6 % (11.0-16.0); White Blood Count 4.8 X10*3/uL (4.8-10.8)
[2024-02-19 12:06] LABS: Anion Gap 11 (12-20); Blood Urea Nitrogen 19 mg/dL (9-16); Calcium 9.2 mg/dL (8.4-10.2); Carbon Dioxide 29 mmol/L (22-29); Chloride 106 mmol/L (96-108); Cholesterol 161 mg/dL (<200); Estimated Glomerular Filt Rate > 60; Glucose Random 87 mg/dL (60-115); Potassium 3.7 mmol/L (3.3-5.1); Sodium 142 mmol/L (135-145); Uric Acid 5.6 mg/dL (2.4-5.7)
== END 2024-02-19 10:51 | disposition home or self-care (01) ==
LOC: HO.10HDL 10:50
PROVIDERS: Visit Provider Internal Medicine
DX: Z13.6 Encounter for screening for cardiovascular disorders (principal); M54.9 Dorsalgia, unspecified; M10.9 Gout, unspecified
CPT/HCPCS: 36415; 80048; 82465; 84550; 85025

== ENCOUNTER 2024-10-11 08:37 | Outpatient (RCR) | payer MEDICARE, OTHER, SELFPAY ==
[2024-10-11 08:44] VITALS: BP 158/83; PULSE 81; RESP 18; TEMP 36.1
[2024-10-11] MEDS: methylPREDNISolone Sod Succ 1,000 MG in 0.9 % Sodium Chloride 50 ML 66 MG IV (09:23)
== END 2024-10-11 10:52 | disposition home or self-care (01) ==
LOC: HO.INF 08:37
PROVIDERS: PCP Internal Medicine; Visit Provider Psychiatry & Neurology Neurology
DX: G35 Multiple sclerosis (principal)
CPT/HCPCS: 96365; J2919

== ENCOUNTER 2024-10-18 10:30 | Outpatient (REF) | payer MEDICARE, OTHER, SELFPAY ==
--- OUTSIDE RECORDS SUMMARY | 2024-10-18 11:58 | XMS_ITS | Data Portability ---
Author Organization [facility] Address [address] [place] [address] Assessment No assessment recorded. Plan of Treatment Reminders Order Date Submit Date Provider Last Modified By Organization Details Last Modified Time Details Appointments None recorded. Lab CBC w/ auto diff 2019 [facility] (Lab Orders), [address] [place] [address], [id number], 0 22:11:49 Referral None recorded. Procedures None recorded. Surgeries None recorded. Imaging XR, hip, unilateral 2019 020 JUANA Not available 0 15:53:45 Medication Orders None recorded. Patient TargetsNo targets recorded. Patient InstructionsNo instructions recorded. Reason for Referral None Reported. Results Created Date Observation Date Name Description Value Unit Range Abnormal Flag Note LastModifiedBy Organization Detail LastModifiedTime 03/09/20 20 03/09/2020 wbc diff, auto, blood neut 63.7 % 44.0-7 4.0 normal Not Available [facility] (Lab Orders) [address] [place] [address], [id number], 03/09/2020 22:11:48 03/09/20 20 03/09/2020 wbc diff, auto, blood anc 3440 U/L 1800-7 700 normal Not Available [facility] (Lab Orders) [address] [place] [address], [address], 03/09/2020 22:11:48 03/09/20 20 03/09/2020 wbc diff, auto, blood lymph 22.3 % 24.0-4 4.0 low Not Available [facility] (Lab Orders) [address] [place], [address], 03/09/2020 22:11:48 03/09/20 20 03/09/2020 wbc diff, auto, blood alc 1204 U/L 1000-4 800 normal Not Available [facility] (Lab Orders) [address] [place], [address], 03/09/2020 22:11:48 03/09/20 20 03/09/2020 wbc diff, auto, blood mono 7.5 % .0-10. 0 normal Not Available [facility] (Lab Orders) [address] [place] [address], [id number], 03/09/2020 22:11:48 03/09/20 20 03/09/2020 wbc diff, auto, blood eos 5.3 % .0-5.0 high Not Available [facility] (Lab Orders) [address] [place], [address], 03/09/2020 22:11:48 03/09/20 20 03/09/2020 wbc diff, auto, blood baso 1.2 % .0-2.0 normal Not Available [facility] (Lab Orders) [address] [place] [address], [id number], 03/09/2020 22:11:48 03/09/20 20 03/09/2020 CBC w/ auto diff WBC 5.4 x10_( 3)_/u L 4.0-10 .5 normal Not Available [facility] (Lab Orders) [address] [place] [address], [id number], 03/09/2020 22:11:49 03/09/20 20 03/09/2020 CBC w/ auto diff RBC 4.14 x10_( 6)_/u L 4.20-5 .40 low Not Available [facility] (Lab Orders) [address] [place] [address], [address], 03/09/2020 22:11:49 03/09/20 20 03/09/2020 CBC w/ auto diff HGB 13.5 g/dL 12.5-1 6.0 normal Not Available [facility] (Lab Orders) [address] [place], [address], 03/09/2020 22:11:49 03/09/20 20 03/09/2020 CBC w/ auto diff HCT 40.1 % 37.0-4 7.0 normal Not Available [facility] (Lab Orders) [address] [place] [address], [id number], 03/09/2020 22:11:49 03/09/20 20 03/09/2020 CBC w/ auto diff MCV 96.8 fL 78.0-1 00.0 normal Not Available [facility] (Lab Orders) [address] [place], [address], 03/09/2020 22:11:49 03/09/20 20 03/09/2020 CBC w/ auto diff MCH 32.6 pg 27.0-3 1.0 high Not Available [facility] (Lab Orders) [address] [place], [address], 03/09/2020 22:11:49 03/09/20 20 03/09/2020 CBC w/ auto diff MCHC 33.6 g/dL 32.0-3 6.0 normal Not Available [facility] (Lab Orders) [address] [place] [address], [address], 03/09/2020 22:11:49 03/09/20 20 03/09/2020 CBC w/ auto diff RDW 12.7 % 11.5-1 4.0 normal Not Available [facility] (Lab Orders) [address] [place] [address], [address], 03/09/2020 22:11:49 03/09/20 20 03/09/2020 CBC w/ auto diff MPV 8.2 fL 6.0-9. 5 normal Not Available [facility] (Lab Orders) [address] [place] [address], [address], 03/09/2020 22:11:49 03/09/20 20 03/09/2020 CBC w/ auto diff plt 210 x10_( 3)_/u L 150-45 0 normal Not Available [facility] (Lab Orders) [address] [place], [address], 03/09/2020 22:11:49 03/09/20 20 03/09/2020 XR, hip, unila teral [facility] [address] [place] [address] 518/79 3-1000 [place] [phone] Examin ation Below Perfor med and Mainta ined at Above Facili ty Interp retati on Provid ed by [facility] Nilesh bergman Name: RYAN CALLOWAY Pat#: [id number] DO Nilesh JENKINS t ID#: [id number] [facility] Access ion: [id number] : 1955 [place] [address] DATE: Mar 09, 2020 XRAY HIP RIGHT WITH PELVIS HISTOR Y: r/o fractu re - low index suspic ion - osteoa rthrit is more likely COMPAR OLU: No prior VIEWS: Fronta l view of the pelvis and 2 views right hip FINDIN GS: BONES: No fractu re, lytic or blasti c lesion . JOINTS : Mild space narrow ing bilate rally within the hips. SOFT TISSUE S: Normal . IMPRES DINORA: Negati ve exam. Dictat ed on: 03-09 15:46: 20 Interp reted by: Monalisa Ríos Transc ribed by: , [id number] Signed by: 03-09 15:46: 20 [email or web address] Not Available 02/15 12:05:31 Result Notes None recorded. Procedures Surgical History None recorded. Imaging Results Imaging Date Name Status LastModified by Organiz ation Details LastModified Time 03/09/2020 XR, hip, unilateral completed [email or web address] Information not available 03/13/2020 12:05:31 Procedure Notes None recorded. Medical Equipment None Reported. Allergies Allergen ID Allergen Name Allergen Category Reaction Reaction Severity Criticality Documentation Date Start Date Code Code System Note Provider Name and Address Organization Details Recorded Time 968599 Product containin g penicilli n (product) medicatio n anaphylax is moderate Not available 03/09/2020 10280 8001 SNOMED Not Available Not Available Not Available Medications Name Sig Start Date Stop Date Status Note LastModified by Organization Details LastModified Time cyclobenzaprine 10 mg tablet Take 1 tablet every day by oral route as needed. active Not Available Not Available No t Available prednisone 20 mg tablet 3 tabs daily for 2 days then 2 tabs daily for 2 days then 1 tab daily for 2 days 2019 active Not Available Not Available Not Avai lable Wellbutrin SR 100 mg tablet, 12 hr sustained-relea se Take 1 tablet every day by oral route at bedtime. active Not Available Not Available No t Available citalopram 20 mg tablet Take 1 tablet every day by oral route. active Not Available Not Available No t Available trazodone 100 mg tablet Take 1 tablet every day by oral route at bedtime. active Not Available Not Available No t Available gabapentin 300 mg capsule Take 1 capsule 5 times a day by oral route. active Not Available Not Available No t Available levothyroxine 75 mcg capsule Take 1 capsule every day by oral route. active Not Available Not Available No t Available Vitals Date Recorded Body weight Body mass index (BMI) Body height Body temperature Respiratory rate Oxygen saturation Oxygen saturation in Arterial blood by Pulse oximetry Heart rate Systolic blood pressure Diastolic blood pressure Provider Name and Address Organization Details Last Updated DateTime 0 995350. 43 g 41.1 kg/m2 160.02 cm 97.3 [degF] 18 /min 97 % 97 % 59 /min 134 mm[Hg] 84 mm[Hg] Jessica Lawrence LPN [facility] 0 13:22:23 Social History Question Answer Notes LastModified by Organizat ion Details LastModified Time Tobacco Smoking Status Former Smoker Jessica Lawrence LPN [facility] 03/09/2020 13:32:05 What Is Your Level Of Alcohol Consumption? Occasional Mblpn 03/09/20 Information not available 03/09/2020 How Much Tobacco Do You Chew? None Information not available 03/09/2020 Which Illicit Or Recreational Drugs Have You Used? None Mblpn 03/09/20 Information not available 03/09/2020 Do You Or Have You Ever Used E-cigarettes Or Vape? 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 2 Information not available 03/09/2020 Sex: Unknown Functional Status None recorded. Mental Status None recorded. Family History Nothing Reported. Medical History No medical history recorded. Gynecological HistoryNo gynecological history recorded. Obstetrics History GPAL:G 0 P 0 0 0 0 Past Encounters Encounter ID Performer Location Encounter Start Date Encounter Closed Date Diagnosis/Indication Diagnosis SNOMED-CT Code Diagnosis ICD10 Code Diagnosis Note [id number] More Huff [facility] [address] [place] [phone] 03/09/2020 13:13:31 03/09/2020 13:54:34 Pain in right hip joint 4652502791 90265 M25.551 Fx unlikely but patient would like x-ray to r/o Leukopenia 91666837 D72. 819 if WBC back to normal will try a steroid burst Multiple sclerosis 31694 007 G35 not clear if radicular pain from known disk herniation or an MS flair - I'd like her to set up a tele-med visit with her neurologis t Health Concerns Section Related Observation LastModified by Organization Detai ls LastModified Time None Recorded Concern Status LastModified by Organization Details LastModified Time None Recorded Advance Directives Directive None Recorded Payers Encounter Date Sequence Insurance Name Policy Number Policy Ambrosio Covered Member ID Ambrosio Member ID Guarantor Name 03/09/2020 1 [place] [employer] [place]ICARE[place] Ryan Tejada [id number] Ryan Tejada 03/09/2020 2 PENDING INSURANCE PLAN (MOVED TO HOLD) Ryan Tejada [id number] Ryan Tejada Notes Date Note Type Note Provider Name and Address Organization Details Recorded Time 03/09/2020 text/html started with pain in her right hip overnight - yesterday she lifted a heavy table and the day befoe she drove all day - has had left hip pain and back pain for years but this is newToday she has noticed her right leg feels noticibly heavier than her left leghas chronic leg numbness due to MS - when she has had MS flair in the past it has been in her face - this is different - stopped MS med in December due to low WBC More Huff, DO [address], [place], [phone], [facility] 03/09/2020 13:58:11 OBGyn Episode No OBEpisode recorded.
--- OUTSIDE RECORDS SUMMARY | 2024-10-18 11:58 | XMS_ITS | Patient Health Record ---
Author Organization [facility] Address [address] [place] [address] Care Team Providers Care Transportation Project Manager Name Role Phone Andrea Leigh MD Primary Care Provider Moe Chacon [phone] Allergies Allergen (clinical drug ingredient) Drug/Non Drug Allergy documented on EMR Reaction Allergy Type Onset Date Status Penicillin Unknown Drug Allergy Active erythromycin Erythromycin Unknown Drug Allergy A ctive ivory soap (uncoded) Unknown Allergy Active Reason For Referral No Information Medications Medication SIG (Take, Route, Frequency, Duration) Notes Start Date End Date Status Citalopram Hydrobromide 20 MG 1 tablet O rally Once a day for 30 day(s) Active traZODone HCl 50 MG as directed Orally O nce a day Active Levothyroxine Sodium 75 MCG 1 tablet Ora lly Once a day Active Cyclobenzaprine HCl 10 MG 1 tablet at be dtime as needed Orally Once a day Active buPROPion HCl 150 MG 2 tablets Orally Tw ice a day Active Gabapentin 300 MG 2 capsule Orally twi ce a day up to 5 tablets daily Active Multi Vitamin/Minerals Orally Active Leg Cramp Relief Orally Act [place] Immunizations Vaccine Route Administration Date Status Comme nts Influenza Unknown 03/17/2020 Administered Problems Problem Type SNOMED Code ICD Code Onset Dates Problem Status W/U Status Risk Notes Problem Screening for malignant neoplasm of colon (862950998) Encounter for screening for malignant neoplasm of colon (Z12.11) Active confirmed Problem History of adenomatous polyp of colon (746347625) History of adenomatous polyp of colon (Z86.010) Active confirmed Problem Family History of Cancer of Colon (Situation) (249146854) Family history of colon cancer (Z80.0) Active confirmed Problem Gastroesophageal reflux disease (544695660) GERD (gastroesophag eal reflux disease) (K21.9) Active confirmed Plan Of Treatment Future Test Test Name Order Date COLONOSCOPY 03/18/2015 COLONOSCOPY 08/18/2020 Insurance Providers Payer Name Payer Address Payer Phone Subscriber Number Group Number Insured Name Patient Relationship to Insured Coverage Start Date Coverage End Date MEDICARE OF [place] [address] [facility] [address] [id number] RYAN HERRERA Self - patient is the insured [facility] [address] [place] [address] [phone] [id number] JAVIER RYAN Self - patient is the insured Medical (General) History Medical History History ICD Code Tubular adenomas reoved in and 2003, neg. colonoscopy in 09/2009 except for some diverticulosis and internal hemorrhoids Depression Denies ID,DM,CVA,renal disease Multiple sclerosis Hypothyroidism Asthma and Bronchitis; 2019 pneumonia-CO VID neg.12/2019 and 07/2020 Neg screening colonoscopy in 05/2015 Borderline sleep apnea but not using CPA P Surgical History Surgery Date(Month/Year) Hysterectomy for cervical cancer Appendectomy Tonsillectomy D&C
--- OUTSIDE RECORDS SUMMARY | 2024-10-18 11:58 | XMS_ITS | Patient Health Record ---
Author Organization [facility] [place] [address] Care Team Providers Care Box Blank Machine Operator Name Role Phone Out of Area, Provider Primary Care Provider Unav ailable Allergies Allergen (clinical drug ingredient) Drug/Non Drug Allergy documented on EMR Reaction Allergy Type Onset Date Status Penicillin adam Drug Allergy Active Tape Unknown Allergy Active Reason For Referral No Information Medications Medication SIG (Take, Route, Fr equency, Duration) Notes Start Date End Date Status Levothyroxine Sodium Active Cyclobenzaprine HCl Active Gabapentin Active Tylenol Active buPROPion HCl Active Allopurinol Active Social History Tobacco Use: Social History Observation Description Date Details (start date - stop date) Former Smoker NA - NA Tobacco Use/Smoking Question Answer Notes Are you a former smoker How long has it been since you last smoked? > 10 years Plan Of Treatment No Information Insurance Providers Payer Name Payer Address Payer Phone Subscriber Number Group Number Insured Name Patient Relationship to Insured Coverage Start Date Coverage End Date MEDICARE A AND [address] [facility] [place] [id number] Delma Tejada [place] - [place] [address] [phone] [id number] Delma Tejada Self - patient is the insured Medical (General) History Medical History History ICD Code Bronchitis, Chronic Hypothyroidism Surgical History Surgery Date(Month/Year) Cholecystectomy HERNIA REPAIR W/MESH
== END 2024-10-18 10:31 | disposition home or self-care (01) ==
LOC: HO.MAMMO 10:30
PROVIDERS: PCP Internal Medicine; Visit Provider Internal Medicine
DX: Z12.31 Encounter for screening mammogram for malignant neoplasm of breast (principal)
CPT/HCPCS: 77063; 77067

== ENCOUNTER → 2024-10-18 10:45 | Outpatient (BNV) | payer MEDICARE, OTHER, SELFPAY | PROVIDERS: PCP Internal Medicine; Visit Provider Internal Medicine | DX: Z12.31 Encounter for screening mammogram for malignant neoplasm of breast (principal) | CPT/HCPCS: 77063; 77067 ==

== ENCOUNTER 2024-12-25 10:08 | Outpatient (AMB) | payer MEDICARE, OTHER, SELFPAY ==
--- NOTE | 2024-12-25 10:10 | MHC.PC.OV ---
Vital Signs 12/25/24 10:27 Height 5 ft 3.5 in Weight 215 lb BMI 37.5 BP 140/82 H Blood Pressure Location Lt brachial Position Sitting Pulse 79 Pulse Source Pulse Oximeter Temp 97.2 F Temp Source Axillary Pulse Oximetry (%) 96 Oxygen Delivery Method Room Air Intake Visit Reasons: Routine Boxing And Pressing Supervisor Required: No Accompanied by: Self / Same As Patient Allergies erythromycin base Allergy (Severe, Verified 12/25/24 11:18) Nausea and Vomiting Penicillins Allergy (Severe, Verified 12/25/24 11:18) Anaphylaxis bee pollen [bee stings] Adverse Reaction (Verified 12/25/24 11:18) Swelling ivory soap Adverse Reaction (Intermediate, Uncoded 12/25/24 11:18) skin sloughing Medication List - Last Reconciled 12/25/24 by Segun Rose MD bupropion HCl SR 150 mg PO BID cyclobenzaprine 10 mg PO BEDTIME PRN gabapentin 1,200 mg PO BEDTIME indomethacin 25 mg PO TID levothyroxine 1 tab PO SUTUWETHSA@0600 levothyroxine 1.5 tabs PO MOFR@0630 multivitamin 1 tab PO DAILY trazodone 50 mg PO BEDTIME PRN Tobacco use date assessed: 12/25/24 Fall risk assessment: No Falls in past year Last assessed Fall Risk: 12/25/24 Dental Screening Dental Screen Date: 12/25/24 Did you have a dental visit in the last 12 months?: Yes Did you have a dental problem in the last 6 months where you did not have access to dental care?: No HPI Routine HPI Details 69 yr female presents to the office to establish care. History of MS. She stopped specific meds more than 7 yrs ago. Cramps in the legs, tingling sensation in the feet and occ numbness are the symptoms of MS. She sees a neurologist regularly. History of depression and is taking welbutrin. Weight gain is a concern. Has a rash on the right ear and the side of the neck for the past few weeks [facility] Medical History (Updated 12/25/24 @ 11:15 by Segun Rose MD) Hx of motion sickness History of postoperative nausea GERD (gastroesophageal reflux disease) Hx of degenerative disc disease Arthritis Back pain Hx of fall Cough Bronchitis Thyroid disease Sleep apnea Asthma Depression Multiple sclerosis Surgical History Hx of dilation and curettage Hx of tonsillectomy Hx of appendectomy Hx of hysterectomy H/O colonoscopy (~09/04/20) Family History (Updated 12/25/24 @ 10:40 by Alia Zaragoza MA) Mother No problems noted. Father No problems noted. Social History Household Members: Spouse and Children Housing: House Are you a primary manager home healthcare to a significant other at home: No Do you presently have visiting nurse or other home services: No Alcohol intake: current Alcohol intake frequency: holidays/special occasions only Patient Tobacco Use Status: Former Tobacco user e-Cigarette/Vaping Use: Former Use service: No Current occupational status: retired Cognitive needs: No Hearing needs: No Vision needs: Yes (reading glasses) Questionnaire PHQ-9 Over the last 2 weeks, how often have you been bothered by any of the following problems? 1. Little interest or pleasure in doing things: not at all 2. Feeling down, depressed, or hopeless: several days 3. Trouble falling or staying asleep, or sleeping too much: nearly every day 4. Feeling tired or having little energy: nearly every day 5. Poor appetite or overeating: nearly every day (over snacking ) 6. Feeling bad about yourself - or that you are a failure or have let yourself or your family down: nearly every day 7. Trouble concentrating on things, such as reading the newspaper or watching television: several days 8. Moving or speaking so slowly that other people could have noticed. Or the opposite - being so fidgety or restless that you have been moving around a lot more than usual: not at all 9. Thoughts that you would be better off or of hurting yourself in some way: not at all Total score: 14 Depression Screening Interpretation: Positive Depression Screening Follow-up: Existing condition and In treatment Depression Screening Done: Yes Source: Developed by Drs. Moe Jackson, Gillian Valentino, Myron Knapp and colleagues, with an educational low from [employer]. Thrive Questionnaire Date Thrive assessed: 12/25/24 I am a: Patient Within the past 12 months, did the food you bought not last and you didn't have the money to get more?: Never true Within the past 12 months, did you worry whether your food would run out before you got money to buy more?: Never true Do you have trouble paying for medicines?: No Do you have trouble getting transportation to medical appointments?: No Do you have trouble paying your heating and electricity bill?: No Do you have trouble taking care of your child, family member or friend?: No Do you have trouble with day-to-day activities such as bathing, preparing meals, shopping, managing finances, etc.?: No Are you currently unemployed and looking for a job?: No Are you interested in more education?: No Currently or been in a relationship where the following occur: No concerns reported THRIVE Score: 0 AUDIT C Alcohol Use Questionnaire (AUDIT-C) 1. How often do you have a drink containing alcohol?: Monthly or less 2. How many drinks containing alcohol do you have on a typical day when you are drinking?: 1 or 2 3. How often do you have six or more drinks on one occasion?: Less than monthly Total Score: 2 ELIZABETH-7 AMB Questionnaire ELIZABETH-7 Date ELIZABETH - 7 assessed: 12/25/24 Feeling nervous, anxious, or on edge: 3 = Nearly every day Not being able to stop or control worryin = Nearly every day Worrying too much about different things: 3 = Nearly every day Trouble relaxin = Several days Being so restless that it is hard to sit still: 0 = Not at all Becoming easily annoyed or irritable: 0 = Not at all Feeling afraid as if something awful might happen: 1 = Several days Total ELIZABETH-7 score (0-4 normal; 5-9 mild; 10-14 moderate; 15-21 severe): 11 Source: Developed by Drs. Moe Jackson, Gillian Valentino, Myron Knapp and colleagues, with an educational low from [employer]. Physical exam (Primary Care) Vital Signs: Last Vital Signs Temp 97.2 F 12/25/24 10:27 Pulse 79 12/25/24 10:27 BP 140/82 H 12/25/24 10:27 Pulse Ox 96 12/25/24 10:27 Oxygen Delivery Method Room Air 12/25/24 10:27 BMI result Body Mass Index 37.5 BMI Assessment/Plan discussion: High Tobacco/Smoking Status: Tobacco use Status Tobacco use date assessed 12/25/24 12/25/24 10:13 Patient Tobacco Use Status Former Tobacco user 12/25/24 10:46 e-Cigarette/Vaping Use Former Use 12/25/24 10:46 PHQ-9: PHQ-9 Score PHQ-9: Total score 14 12/25/24 10:46 Depression Screening Interpretation: Positive Depression Screening Follow-up: Existing condition and In treatment Thrive Assessment: Date of Thrive Assessment Date Thrive assessed 12/25/24 12/25/24 10:13 Currently or been in a relationship where the following occur: No concerns reported Advance Care Planning discussion: Exists, not on file Date of discussion: 12/25/24 Who was present: Patient Forms completed: Health Care Proxy and MOLST Time spent: 1-15 minutes, on File Actual minutes spent: 5 Const General: cooperative and healthy appearing Nutritional Appearance: well nourished Orientation/consciousness: patient oriented x3 Limitations: no limitations HENMT Head: Yes normal to inspection Eyes General: appearance normal, both eyes and all related structures Neck Neck: Yes normal visual inspection Chest Chest palpation & inspection: normal palpation of entire chest wall Resp Effort & Inspection: normal respiratory effort Skin Other: Right ear: External: Tragus: weepy erythematous lesions, Neck: along the neck line (necklace line): 3 cm erythematous rash, with distinct edges. Neuro General: patient oriented x3 Coding Level of Care Code New Pt Level 4 (06608) Complex EM visit Add On G2211 Diagnoses Multiple sclerosis G35 Depression F32.9 Rash R21 Additional Codes Vital Signs *Quality* - Advance Care Planning discussion: Exists, not on file ([id number]) Vital Signs *Quality* - Time spent: 1-15 minutes, on File ([id number]) Assessment & Plan Assessment & Plan (1) Multiple sclerosis: Comment: is ambulatory-slightly awkward gait per patient-does not use a cane Code(s): G35 - Multiple sclerosis Category: Medical Plan: Condition is stable. She sees Dr Garrison. On muscle relaxants only. (2) Depression: Code(s): F32.9 - Major depressive disorder, single episode, unspecified Category: Medical Plan: Continue the current med. (3) Rash: Code(s): R21 - Rash and other nonspecific skin eruption Plan: Triamcinolone cream, apply to the ear and skin twice a day Orders: Orders Basic Metabolic Panel Today Segun Rose MD F32.9 - Major depressive disorder, single episode, unspecified, G35 - Multiple sclerosis, R21 - Rash and other nonspecific skin eruption Complete Blood Count no Diff Today Segun Rose MD F32.9 - Major depressive disorder, single episode, unspecified, G35 - Multiple sclerosis, R21 - Rash and other nonspecific skin eruption UA and rflx microscopic Today Segun Rose MD F32.9 - Major depressive disorder, single episode, unspecified, G35 - Multiple sclerosis, R21 - Rash and other nonspecific skin eruption Liver Panel Today Segun Rose MD F32.9 - Major depressive disorder, single episode, unspecified, G35 - Multiple sclerosis, R21 - Rash and other nonspecific skin eruption Thyroid Stimulating Hormone Today Segun Rose MD F32.9 - Major depressive disorder, single episode, unspecified, G35 - Multiple sclerosis, R21 - Rash and other nonspecific skin eruption Medications: Discontinued prednisone Take 3 tablets for 5 days THEN; Take 2 tablets for 4 days THEN; Take 1 tablet for 3 days Discontinued Reason: Patient no longer taking 20 mg PO DAILY 26 tabs 0RF 12 days Alia Zaragoza MA Paxlovid 300 mg (150 mg x 2)-100 mg (nirmatrelvir-ritonavir) Discontinued Reason: Patient no longer taking take TWO 150 mg tablets of nirmatrelvir with ONE 100 mg tablet of ritonavir twice daily for 5 days PO Stop trazodone for duration of paxlovid treatment 30 ea 0RF NS Alia Zaragoza MA
[2024-12-25 10:27] VITALS: BP 140/82; PULSE 79; TEMP 36.2; O2SAT 96; BMI 37.5
--- OUTSIDE RECORDS SUMMARY | 2024-12-25 11:27 | XMS_ITS | Patient Health Record ---
Author Organization [facility] [place] [address] Care Team Providers Care Shaper And Presser Name Role Phone Out of Area, Provider [...] Date MEDICARE A AND [address] [facility] [place] [id number] Delma Tejada Self - [place] [address] [phone] [id number] Delma Tejada Self - patient is the insured Medical (General) History Medical History History ICD Code Bronchitis, Chronic Hypothyroidism Surgical History Surgery Date(Month/Year) Cholecystectomy HERNIA REPAIR W/MESH
== END 2024-12-25 11:22 | disposition home or self-care (01) ==
LOC: HO.HMCHD 10:09
PROVIDERS: PCP Internal Medicine; Visit Provider Internal Medicine
DX: G35 Multiple sclerosis (principal); F32.9 Major depressive disorder, single episode, unspecified; R21 Rash and other nonspecific skin eruption; Z00.00 Encounter for general adult medical examination without abnormal findings

== ENCOUNTER → 2024-12-25 10:08 | Outpatient (BNVA) | payer MEDICARE, OTHER, SELFPAY | PROVIDERS: PCP Internal Medicine; Visit Provider Internal Medicine | DX: G35 Multiple sclerosis (principal); F32.9 Major depressive disorder, single episode, unspecified; R21 Rash and other nonspecific skin eruption; Z87.891 Personal history of nicotine dependence | CPT/HCPCS: 99202 ==

== ENCOUNTER 2025-04-10 11:16 | Outpatient (AMB) | payer MEDICARE, OTHER, SELFPAY ==
--- NOTE | 2025-04-10 11:24 | MHC.OFFVIS ---
Intake Visit Reasons: 6 Months MS Allergies erythromycin base Allergy (Severe, Verified 12/25/24 11:18) Nausea and Vomiting Penicillins Allergy (Severe, Verified 12/25/24 11:18) Anaphylaxis bee pollen (bee stings) Adverse Reaction (Verified 12/25/24 11:18) Swelling ivory soap Adverse Reaction (Intermediate, Uncoded 12/25/24 11:18) skin sloughing HPI Comments Details: 69 years old woman with remitting relapsing multiple sclerosis. She was initially seen in this office in 1999 for paresthesias of lower extremities. EMG nerve conduction study did not reveal any significant abnormality. Brain MRI revealed lesions that were somewhat suggestive of demyelination. Her spinal fluid revealed more than 5 oligoclonal bands that were not seen in serum. There were multiple abnormalities of evoked potentials in the visual and somatosensory area. Initially she was stable and for a while not taking any medicine. Ultimately she was started on Betaseron. Betaseron resulted in some side effects and she was not fully compliant with the medicine. In 2013 it was switched to oral medicine, Gilenya. Gilneya was stopped in December of 2019. She was feeling tired and achy with Eliu season. Otherwise headaches were not that severe. Medicines were helping. [facility] Medical History (Updated 04/10/25 @ 11:31 by Sg Garrison MD) Hx of motion sickness History of postoperative nausea GERD (gastroesophageal reflux disease) Hx of degenerative disc disease Arthritis Back pain Hx of fall Cough Bronchitis Thyroid disease Sleep apnea Asthma Depression Multiple sclerosis Surgical History Hx of dilation and curettage Hx of tonsillectomy Hx of appendectomy Hx of hysterectomy H/O colonoscopy (~09/04/20) Family History (Updated 12/25/24 @ 10:40 by Alia Zaragoza MA) Mother No problems noted. Father No problems noted. Social History Household Members: Spouse and Children Housing: House Are you a primary care provider to a significant other at home: No Do you presently have visiting nurse or other home services: No Alcohol intake: current Alcohol intake frequency: holidays/special occasions only Patient Tobacco Use Status: Former Tobacco user e-Cigarette/Vaping Use: Former Use service: No Current occupational status: retired Cognitive needs: No Hearing needs: No Vision needs: Yes (reading glasses) Review of Systems Const Details: Aching and lethargy. Physical Exam Neuro Other: Mental Status: Alert and oriented to person, place, and time. Normal attention. Normal spontaneous speech, fluency, and comprehension. No obvious issues with mood and memory. Affect is appropriate. Cranial Nerves: CN II: Visual monahan full to confrontation, visual acuity intact. CN III, IV, : Pupils equal, round, reactive to light and accommodation. Extraocular movements are normal. CN V: Facial sensation is normal. CN VII: Facial movements symmetrical. CN VIII: Hearing intact to bedside conversation is normal. CN IX, X: Palate elevates symmetrically. CN XI: Shoulder shrug and head turn symmetrical. CN XII: Tongue midline without atrophy or fasciculations. Deep tendon reflexes are trace. Gait is cautious. Extrapyramidal: Full facial expressions and blinking. No rigidity. Movements are appropriate with no tremor or abnormality. Speech: Normal; no dysarthria or tremor. Assessment & Plan Assessment & Plan (1) Multiple sclerosis: Comment: MRI LS spine WO at [facility] in Mar 2021: diff DJD, L 4/5 and 5/1 mod foriminal stenosis MRI brain WO at [facility] in Apr 2020: No sig change MRI brain WO at [facility] in Jun 2016: No change MRI LS spine at [facility] in November 2015: Disc osteophyte complex at L 4/5 and 5/1 narrowing left sided foramina MRI C spine WO at [facility] in Sep 2015: mild to mod sponylosis, C 5/6 and 6/7 MRI brain WWO at [facility] in Jun 2015: MS, new left post frontal lesion, lesion load 2-3. MRI brain WWO at [facility] in 2008: Possible MS, lesion load 2/5, no enhancement. MRI brain at [facility] in 2007: no changes MRI brain at [facility] in 2003: 9 or more lesions, some periventricular CSF analysis in 2003: Glu 59, Pro 31, WBCs 4, IgG ind: OK, +OCBs Evoked potential screen in 2003: GRACE and SSEP delayed MRI brain at [facility] in Aug WWO: more lesions and some atrophy that was noted before, lesion load 3/5. MRI L/S spine in 2011 at [facility]: diffuse DJD PSG in 2007 at [facility]: TST RDI 7.9. No REM sleep recorded EEG in Jun 2014 at office: OK JCV titre at [facility]: Jun 2015: neg Holter and EKG at [facility] in 2019: WNL. Code(s): G35 - Multiple sclerosis Category: Medical (2) Depression: Code(s): F32.9 - Major depressive disorder, single episode, unspecified Category: Medical Qualifiers: Depression Type: unspecified Qualified Code(s): F32.A - Depression, unspecified (3) Migraine: Code(s): G43.909 - Migraine, unspecified, not intractable, without status migrainosus Category: Medical Qualifiers: Migraine type: migraine (< 15 days per month) without aura Status migrainosus presence: without status migrainosus Intractability: not intractable Qualified Code(s): G43.009 - Migraine without aura, not intractable, without status migrainosus (4) Insomnia: Code(s): G47.00 - Insomnia, unspecified Category: Medical Qualifiers: Insomnia type: due to medical condition Qualified Code(s): G47.01 - Insomnia due to medical condition (5) Muscle cramps: Code(s): R25.2 - Cramp and spasm Category: Medical Plan Impression: 1. Remitting relapsing multiple sclerosis in remission at this time. Solu-Medrol is use on as needed basis. 2. Migraine without aura treated with as needed sumatriptan 3. Depression treated with bupropion 150 mg twice a day 4. Insomnia treated with trazodone 50 mg 1 at bedtime 5. Muscle cramps treated with gabapentin 300 mg 1 in the morning and 3 at night with cyclobenzaprine 10 mg at bedtime as needed Overall she was stable though rainy weather was affecting her energy and creating aching. Medications: New bupropion HCl SR 150 mg PO BID 180 tabs 1RF gabapentin 1,200 mg (4 x 300 mg) PO BEDTIME 360 caps 1RF trazodone 50 mg PO BEDTIME PRN 90 tabs 1RF Insomnia sumatriptan succinate 50 mg orally one a day as needed PRN; do not exceed 4 doses per 24 hrs 10 tabs 5RF migraine headache 30 days Refilled cyclobenzaprine 10 mg PO BEDTIME PRN 90 tabs 1RF Muscle Spasm Coding Level of Care Code Est Pt Level 5 (27674) Diagnoses Multiple sclerosis G35 Depression, unspecified depression type F32.A Depression Type: unspecified Migraine without aura and without status migrainosus, not intractable G43.009 Migraine type: migraine (< 15 days per month) without aura Status migrainosus presence: without status migrainosus Intractability: not intractable Insomnia due to medical condition G47.01 Insomnia type: due to medical condition Muscle cramps R25.2
--- OUTSIDE RECORDS SUMMARY | 2025-04-10 16:19 | XMS_ITS | Patient Health Record ---
Author Organization [facility] [place] [address] Care Team Providers Care Supervisor Painting Department Name Role Phone Out of Area, Provider [...] Date MEDICARE A AND [address] [facility] [place] [id number] Delma Tejada Self - [place] [address] [phone] [id number] Delma Tejada Self - patient is the insured Medical (General) History Medical History History ICD Code Bronchitis, Chronic Hypothyroidism Surgical History Surgery Date(Month/Year) Cholecystectomy HERNIA REPAIR W/MESH
--- OUTSIDE RECORDS SUMMARY | 2025-04-10 16:19 | XMS_ITS | Patient Health Record ---
Author Organization [facility] Address [address] [place] [address] Care Team Providers Care Word Processing Operator Name Role Phone Reese (RETIRED) Andrea CASE Primary Care Provide r Unavailable Moe Christianson Unavailable [phone] Allergies Allergen (clinical drug ingredient) Drug/Non Drug [...] Problem Screening for malignant neoplasm of colon ([id number]) Encounter for screening for malignant neoplasm of colon (Z12.11) Active confirmed Problem History of adenomatous polyp of colon (862199611) History of adenomatous polyp of colon (Z86.010) Active confirmed Problem Family History of Cancer of Colon (Situation) (761140514) Family history of colon cancer (Z80.0) Active confirmed Problem Gastroesophageal reflux disease (494253390) GERD (gastroesophag eal reflux disease) (K21.9) Active confirmed Plan Of Treatment Future Test Test Name Order Date COLONOSCOPY 03/18/2015 COLONOSCOPY 08/18/2020 Insurance Providers Payer Name Payer Address Payer Phone Subscriber Number Group Number Insured Name Patient Relationship to Insured Coverage Start Date Coverage End Date MEDICARE OF [place] [address] [facility] [place] [address] [phone] [id number] RYAN HERRERA Self - patient is the insured [facility] [address] [place] [phone] [id number] RYAN HERRERA Self - patient is the insured Medical (General) History Medical History History ICD Code Tubular adenomas reoved in and 2003, neg. colonoscopy in 09/2009 except for some diverticulosis and internal hemorrhoids Depression Denies OH,DM,CVA,renal disease Multiple sclerosis Hypothyroidism Asthma and Bronchitis; 2019 pneumonia-CO VID neg.12/2019 and 07/2020 Neg screening colonoscopy in 05/2015 Borderline sleep apnea but not using CPA P Surgical History Surgery Date(Month/Year) Hysterectomy for cervical cancer Appendectomy Tonsillectomy D&C
== END 2025-04-10 11:34 | disposition home or self-care (01) ==
LOC: HO.HSM 11:16
PROVIDERS: PCP Student in an Organized Health Care Education/Training Program; Referring Provider Internal Medicine; Visit Provider Psychiatry & Neurology Neurology
DX: G35 Multiple sclerosis (principal); F32.A Depression, unspecified; G43.009 Migraine without aura, not intractable, without status migrainosus; G47.01 Insomnia due to medical condition; R25.2 Cramp and spasm
CPT/HCPCS: 99214

== ENCOUNTER → 2025-04-10 11:16 | Outpatient (BNVA) | payer MEDICARE, OTHER, SELFPAY | PROVIDERS: PCP Student in an Organized Health Care Education/Training Program; Referring Provider Internal Medicine; Visit Provider Psychiatry & Neurology Neurology | DX: G35 Multiple sclerosis (principal); F32.A Depression, unspecified; G43.909 Migraine, unspecified, not intractable, without status migrainosus; G47.01 Insomnia due to medical condition; R25.2 Cramp and spasm | CPT/HCPCS: 99212 ==

== ENCOUNTER 2025-07-02 09:02 | Outpatient (REF) | payer MEDICARE, OTHER, SELFPAY ==
--- NOTE | ~2025-07-02 | XR_ITS ---
EXAMINATION: XR HIP, LEFT CLINICAL INFORMATION: M25.552 - Pain in left hip COMPARISON: September 11, 2019 TECHNIQUE: AP and oblique views of the left hip. FINDINGS: No acute fracture or dislocation. No lytic or blastic lesions. Preservation of the joint space. No metallic or radiopaque foreign body. No subcutaneous emphysema. XR/XR hip LT min 2V IMPRESSION: Normal x-ray, left hip. Electronically signed by: Ravi Farrar MD 07/02/2025 10:42 AM VERONICA THOMPSON
--- NOTE | ~2025-07-02 | XR_ITS ---
EXAMINATION: XR KNEE 4 OR MORE VIEWS LEFT HISTORY: M25.562 - Pain in left knee COMPARISON: Comparison is made with the prior examination dated 12/22/2020. FINDINGS: Four views of the left knee are submitted. Osseous mineralization is normal. There is no fracture or dislocation. There is mild narrowing of the patellofemoral compartment. The soft tissues are unremarkable. There is no joint effusion. XR/XR knee LT 4V IMPRESSION: Mild narrowing of the patellofemoral compartment. Electronically signed by: Moe Marshall MD 07/02/2025 10:44 AM EST
== END 2025-07-02 09:03 | disposition home or self-care (01) ==
LOC: HO.XRAY 09:02
PROVIDERS: PCP Student in an Organized Health Care Education/Training Program; Visit Provider Student in an Organized Health Care Education/Training Program
DX: M25.552 Pain in left hip (principal); M25.562 Pain in left knee; E03.9 Hypothyroidism, unspecified; E03.8 Other specified hypothyroidism; M1A.9XX0 Chronic gout, unspecified, without tophus (tophi); G35.D Multiple sclerosis, unspecified; G43.009 Migraine without aura, not intractable, without status migrainosus; G47.01 Insomnia due to medical condition; R05.3 Chronic cough
CPT/HCPCS: 36415; 73502; 73564; 84443; 99212

== ENCOUNTER 2025-07-02 09:02 | Outpatient (AMB) | payer MEDICARE, OTHER, SELFPAY ==
--- NOTE | 2025-07-02 09:10 | A.OFFPC_ITS ---
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: No Accompanied by: Spouse Allergies erythromycin base Allergy (Severe, Verified 07/02/25 09:11) Nausea and Vomiting Penicillins Allergy (Severe, Verified 07/02/25 09:11) Anaphylaxis bee pollen (bee stings) Adverse Reaction (Verified 07/02/25 09:11) Swelling ivory soap Adverse Reaction (Intermediate, Uncoded 12/25/24 11:18) skin sloughing Medication List - Last Reconciled 07/02/25 by Jens Zapien MD albuterol sulfate 90 mcg/actuation 2 puffs inhalation Q4-6H allopurinol 100 mg PO DAILY 90 days bupropion HCl SR 150 mg PO BID cyclobenzaprine 10 mg PO BEDTIME PRN gabapentin 1,500 mg PO DAILY PRN inhalational spacing device ([facility] spacer) As directed levothyroxine 1.5 tabs PO MOFR@0630 levothyroxine 75 mcg PO SUTUWETHSA@0600 multivitamin 1 tab PO DAILY scopolamine base 1 patch transdermal Q3D PRN sumatriptan succinate 50 mg orally one a day as needed PRN; do not exceed 4 doses per 24 hrs 30 days trazodone 50 mg PO BEDTIME triamcinolone acetonide 0.025% 1 appl topical BID PRN Tobacco use date assessed: 12/25/24 Fall risk assessment: 1 Fall in past year Last assessed Fall Risk: 07/02/25 Dental Screening Dental Screen Date: 12/25/24 HPI HPI Comments History of Present Illness Details History of Present Illness The patient is a 69 year old female presenting for management of chronic pain and other chronic conditions. She has a history of chronic pain in her back, side, and hip/pelvis area since a fall down 11 stairs in 2015. This has resulted in increasing difficulty putting weight on her left leg to climb stairs. In addition to her hip pain, she reports knee pain when stepping down and putting her full weight on it, which sometimes feels warm. An MRI of her spine in 2020 revealed disc changes, and she mentions the presence of osteophytes. She last participated in physical therapy around 2022. Her medical history is significant for Multiple Sclerosis, which contributes to muscle spasms and cramping in her thighs, though the fall exacerbated this issue. She has a history of gout, with occasional flares in her feet, which she feels are imminent if she misses a dose of allopurinol. She also has hypothyroidism managed with levothyroxine, but her thyroid function has not been checked since 2021. Other conditions include migraines treated with sumatriptan and insomnia treated with trazodone. She reports a new, worsening cough that is most prominent in the morning. She has a history of acid reflux from years ago. Medical History: - Multiple Sclerosis - Gout - Hypothyroidism - Migraines - Insomnia - History of fall in 2015 - History of acid reflux - History of osteophytes Surgical History: - Reports a prior minor procedure on her back. Medications: - Gabapentin 900-1200 mg at night for pa in and cramps. - Trazodone 50 mg at night for sleep. - Allopurinol 100 mg for gout. - Bupropion 150 mg twice a day. - Cyclobenzaprine for muscle cramping. - Levothyroxine 75 mcg daily, with an ad ditional half-pill on Mondays and Fridays, for hypothyroidism. - Sumatriptan for migraines. Diagnostic Results: - Labs: Last thyroid check was in 2021. - Imaging: MRI of the spine in 2020 show ed disc changes. 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 - Substance Use: Denies smoking, quit in the past. - Functional Status: Reports being very active in the past but now has difficulty climbing stairs due to pain and difficulty with weight bearing. [facility] Medical History (Updated 07/02/25 @ 10:13 by Jens Zapien MD) Gout Hypothyroidism Left knee pain Left hip pain Hx of motion sickness History of postoperative nausea GERD (gastroesophageal reflux disease) Hx of degenerative disc disease Arthritis Back pain Hx of fall Cough Bronchitis Thyroid disease Sleep apnea Asthma Depression Multiple sclerosis Surgical History Hx of dilation and curettage Hx of tonsillectomy Hx of appendectomy Hx of hysterectomy H/O colonoscopy (~09/04/20) Family History (Updated 12/25/24 @ 10:40 by Alia Zaragoza MA) Mother No problems noted. Father No problems noted. Social History Household Members: Spouse and Children Housing: House Are you a primary home care giver to a significant other at home: No Do you presently have visiting nurse or other home services: No Alcohol intake: current Alcohol intake frequency: holidays/special occasions only Patient Tobacco Use Status: Former Tobacco user e-Cigarette/Vaping Use: Former Use service: No Current occupational status: retired Cognitive needs: No Hearing needs: No Vision needs: Yes (reading glasses) Questionnaire Thrive Questionnaire Date Thrive assessed: 12/25/24 AUDIT C Alcohol Use Questionnaire (AUDIT-C) 1. How often do you have a drink containing alcohol?: Monthly or less 2. How many drinks containing alcohol do you have on a typical day when you are drinking?: 1 or 2 3. How often do you have six or more drinks on one occasion?: Never Total Score: 1 ELIZABETH-7 AMB Questionnaire ELIZABETH-7 Date ELIZABETH - 7 assessed: 12/25/24 Source: Developed by Drs. Moe Jackson, Gillian Valentino, Myron Knapp and colleagues, with an educational low from [place]. Review of Systems Narrative Review of Systems - Musculoskeletal: Reports chronic back, side, and hip/pelvis pain. - Neurological: Reports difficulty with weight bearing on the left leg, espec ially when climbing stairs. - Joints: Reports knee pain with weight bearing, which sometimes feels warm. - Muscle: Reports severe thigh cramping, which has improved with medication. - Head: Reports migraines. - Respiratory: Reports a horrendous cough in the morning. - Gastrointestinal: Reports a history of acid reflux. - Constitutional: Denies feeling 100%. All systems reviewed & are unremarkable except as reviewed in HPI and above Physical exam (Primary Care) Vital Signs: Last Vital Signs Temp 96.9 F 07/02/25 09:14 Pulse 80 07/02/25 09:14 Resp 16 07/02/25 09:14 BP 124/80 07/02/25 09:14 Pulse Ox 97 07/02/25 09:14 Oxygen Delivery Method Room Air 07/02/25 09:14 Care Plan Goal for BP management: Within Goal BMI result Body Mass Index 37.9 Tobacco/Smoking Status: Tobacco use Status Tobacco use date assessed 12/25/24 07/02/25 09:11 Patient Tobacco Use Status Former Tobacco user 07/02/25 09:11 e-Cigarette/Vaping Use Former Use 07/02/25 09:11 Thrive Assessment: Date of Thrive Assessment Date Thrive assessed 12/25/24 07/02/25 09:11 Narrative Physical Exam General: +Alert and oriented, Well nourished, No acute distress. Eye: Pupils are equal, round and reactive to light, Intact accommodation, Extraocular movements are intact, Normal conjunctiva, Vision unchanged. HENT: Normocephalic, Atraumatic, Tympanic membranes are clear, Normal hearing, Oral mucosa is moist, No pharyngeal erythema, Ear canals patent. Respiratory: Lungs CTA bilaterally, No wheeze, Respirations are non-labored, Reports of a persistent cough, possibly related to postnasal drip or acid reflux. Cardiovascular: Regular rate, Regular rhythm, S1 auscultated, S2 auscultated, No murmur, Good pulses equal in all extremities, Normal peripheral perfusion, No edema. Gastrointestinal: Soft, Non-tender, Non-distended, Normal bowel sounds, No organomegaly, Reports of liver protrusion sensation. Musculoskeletal: Limited range of motion due to hip and knee pain, Normal strength, No tenderness, No swelling, No deformity, Difficulty with gait due to hip and knee pain. Integumentary: Warm, Dry, [place], Intact. Neurologic: Alert, Oriented, Normal sensory, Normal motor function, No focal defects, Cranial Nerves II-XII are grossly intact, Normal deep tendon reflexes. Psychiatric: Cooperative, Appropriate mood & affect, Normal judgment. Coding Level of Care Code Est Pt Level 4 (96866) Add On Problem Visit Only Diagnoses Left hip pain M25.552 Other specified hypothyroidism E03.8 Hypothyroidism type: other Chronic gout without tophus, unspecified cause, unspecified site M1A.9XX0 Chronicity: chronic Gout etiology: unspecified cause Gout site: unspecified site Presence of tophus: without tophus Multiple sclerosis G35 Migraine without aura and without status migrainosus, not intractable G43.009 Intractability: not intractable Migraine type: migraine (< 15 days per month) without aura Status migrainosus presence: without status migrainosus Insomnia due to medical condition G47.01 Insomnia type: due to medical condition Chronic cough R05.3 Cough type: chronic Assessment & Plan Assessment & Plan (1) Left hip pain: Comment: Chronic left hip and knee pain - The pain is likely multifactorial, stemming from a fall in 2016 and possible age-related degenerative changes. - The plan is to obtain X-rays of the left hip and knee, followed by a referral to physical therapy. - If conservative measures fail, an MRI and specialist consultation with orthopedics or a spine surgeon will be considered. Code(s): M25.552 - Pain in left hip Category: Medical (2) Hypothyroidism: Comment: - The patient is on a stable dose of levothyroxine but has not had thyroid function monitoring since 2021. - An order for blood work has been placed for today to check thyroid levels. - A full physical is scheduled in 6 months with pre-visit labs. Code(s): E03.9 - Hypothyroidism, unspecified Category: Medical Qualifiers: Hypothyroidism type: other Qualified Code(s): E03.8 - Other specified hypothyroidism (3) Gout: Comment: - This is managed with allopurinol. - She will continue her current medication and has been advised on the importance of adherence and diet. Code(s): M10.9 - Gout, unspecified Category: Medical Qualifiers: Chronicity: chronic Gout etiology: unspecified cause Gout site: unspecified site Presence of tophus: without tophus Qualified Code(s): M1A.9XX0 - Chronic gout, unspecified, without tophus (tophi) (4) Multiple sclerosis: Comment: MRI LS spine WO at [facility] in Mar 2021: diff DJD, L 4/5 and 5/1 mod foriminal stenosis MRI brain WO at [facility] in Apr 2020: No sig change MRI brain WO at [facility] in Jun 2016: No change MRI LS spine at [facility] in November 2015: Disc osteophyte complex at L 4/5 and 5/1 narrowing left sided foramina MRI C spine WO at [facility] in Sep 2015: mild to mod sponylosis, C 5/6 and 6/7 MRI brain WWO at [facility] in Jun 2015: MS, new left post frontal lesion, lesion load 2-3. MRI brain WWO at [facility] in 2008: Possible MS, lesion load 2/5, no enhancement. MRI brain at [facility] in 2007: no changes MRI brain at [facility] in 2003: 9 or more lesions, some periventricular CSF analysis in 2003: Glu 59, Pro 31, WBCs 4, IgG ind: OK, +OCBs Evoked potential screen in 2003: GRACE and SSEP delayed MRI brain at [facility] in Aug WWO: more lesions and some atrophy that was noted before, lesion load 3/5. MRI L/S spine in [address] [facility]: diffuse DJD PSG in [address] [facility]: TST RDI 7.9. No REM sleep recorded EEG in Jun 2014 at office: OK JCV titre at [facility]: Jun 2015: neg Holter and EKG at [facility] in 2018: WNL. - Symptoms are managed with gabapentin and cyclobenzaprine. - She will continue her current regimen as prescribed by her neurologist. Code(s): G35 - Multiple sclerosis Category: Medical (5) Migraine: Comment: - Managed with sumatriptan. - She will continue to use it as needed for acute attacks. Code(s): G43.909 - Migraine, unspecified, not intractable, without status migrainosus Category: Medical Qualifiers: Intractability: not intractable Migraine type: migraine (< 15 days per month) without aura Status migrainosus presence: without status migrainosus Qualified Code(s): G43.009 - Migraine without aura, not intractable, without status migrainosus (6) Insomnia: Comment: - This is managed with trazodone. - She will continue her current medication. Code(s): G47.00 - Insomnia, unspecified Category: Medical Qualifiers: Insomnia type: due to medical condition Qualified Code(s): G47.01 - Insomnia due to medical condition (7) Cough: Comment: - The differential diagnosis includes postnasal drip, allergies, or acid reflux, given her history. - The initial plan is to use a humidifier at night. - If this is ineffective, she will trial sipu-dwe-diewtkw decongestants (e.g., cetirizine). - If symptoms persist, treatment for acid reflux will be considered. Code(s): R05 - Cough Category: Medical Qualifiers: Cough type: chronic Qualified Code(s): R05.3 - Chronic cough Plan: Health Maintenance: - Ordered blood work for thyroid monitoring, as the last check was in 2021. - Ordered X-rays of the left hip and knee to evaluate chronic pain. - A follow-up physical exam is planned for 6 months from now. - Discussed age-related degenerative changes as a possible contributor to her joint pain. Patient was informed and verbally consented to the use of an ambient scribe for clinic note documentation during this visit. Plan I have reviewed the patient's chronic pain in her left hip and knee, which appears to be secondary to a fall in 2016 and likely has a component of age- related arthritic changes. I explained that we would start with X-rays of the affected joints today and a referral to physical therapy. I informed her that if these initial steps do not provide sufficient relief, we would then consider an MRI and a referral to a specialist such as an orthopedic or spine surgeon. I also emphasized the importance of getting her blood work done today to check her thyroid function, as it has not been monitored since 2021, and this is crucial for managing her hypothyroidism. We discussed her new morning cough and the plan to address it, starting with a humidifier, progressing to [id number]-[id number] medication, and considering acid reflux treatment if necessary. The patient understands the plan and has been provided with requisitions and instructions for her labs and imaging, with a plan to follow up in 6 months for a physical. Orders: Orders XR hip LT min 2V Today Jens Zapien MD M25.552 - Pain in left hip Comprehensive Met. Panel 6 Months Jens Zapien MD Z00.00 - Encounter for general adult medical examination without abnormal findings Hemoglobin A1c 6 Months Jens Zapien MD Z00.00 - Encounter for general adult medical examination without abnormal findings Hepatitis A,B,C Profile 6 Months Jens Zapien MD Z00.00 - Encounter for general adult medical examination without abnormal findings HIV Ab/Ag 6 Months Jens Zapien MD Z00.00 - Encounter for general adult medical examination without abnormal findings Lipid Panel 6 Months Jens Zapien MD Z00.00 - Encounter for general adult medical examination without abnormal findings Microalbumin, Random (w Creat) 6 Months Jens Zapien MD Z00.00 - Encounter for general adult medical examination without abnormal findings TSH reflex Free T4 6 Months Jens Zapien MD Z00.00 - Encounter for general adult medical examination without abnormal findings Vitamin D 25-OH Total 6 Months Jens Zapien MD Z00.00 - Encounter for general adult medical examination without abnormal findings XR knee LT 4V Today Jens Zapien MD M25.562 - Pain in left knee TSH reflex Free T4 Today Jens Zapien MD E03.9 - Hypothyroidism, unspecified Complete Blood Count Auto Diff 6 Months Jens Zapien MD Z00.00 - Encounter for general adult medical examination without abnormal findings Syphilis Screen 6 Months Jens Zapien MD Z00.00 - Encounter for general adult medical examination without abnormal findings Medications: Changed From trazodone 50 mg PO BEDTIME PRN 90 tabs 1RF Insomnia To trazodone 50 mg PO BEDTIME Sg Garrison MD From gabapentin 1,200 mg (4 x 300 mg) PO BEDTIME 360 caps 1RF To gabapentin 1,500 mg PO DAILY PRN Sg Garrison MD From triamcinolone acetonide 0.025% 1 appl topical BID 15 grams 0RF To triamcinolone acetonide 0.025% 1 appl topical BID PRN Segun Rose MD Patient Instructions: - Please go to the lab in the hospital today to have your blood drawn to check your thyroid levels. - Please go to radiology on the second floor today for X-rays of your left hip and left knee. - We will be referring you to physical therapy to help with your hip and knee pain. - For your morning cough, try using a humidifier in your bedroom at night. - If the humidifier does not help, you can try an txra-cfm-ygazlto allergy medicine like Aller-Mindy (cetirizine). - Continue to take all of your current medications as prescribed. - We will see you back in the office for a physical exam in 6 months. - Please get blood work done one week before your next physical exam.
[2025-07-02 09:14] VITALS: BP 124/80; PULSE 80; RESP 16; TEMP 36.1; O2SAT 97; BMI 37.9
--- OUTSIDE RECORDS SUMMARY | 2025-07-02 09:54 | XMS_ITS | Patient Health Record ---
Author Organization [facility] [place] [address] Care Team Providers Care Internet Sourcer Name Role Phone Out of Area, Provider [...] Date MEDICARE A AND [address] [facility] [place] [id number] Delma Tejada Self - [place] [address] [phone] [id number] Delma Tejada Self - patient is the insured Medical (General) History Medical History History ICD Code Bronchitis, Chronic Hypothyroidism Surgical History Surgery Date(Month/Year) Cholecystectomy HERNIA REPAIR W/MESH
--- OUTSIDE RECORDS SUMMARY | 2025-07-02 09:54 | XMS_ITS | Patient Health Record ---
Author Organization [facility] Address [address] [place] [address] Care Team Providers Care Weatherseal Technician Name Role Phone Reese (RETIRED) Andrea CASE Primary Care Provide r Unavailable Moe Christianson Unavailable [phone] Allergies Allergen (clinical drug ingredient) Drug/Non Drug Allergy documented on EMR Reaction Allergy Type Onset Date Status ivory soap (uncoded) Unknown Allergy Active erythromycin Erythromycin Unknown Drug Allergy A ctive Penicillin Unknown Drug Allergy Active Reason For Referral No Information Medications Medication SIG (Take, Route, Frequency, Duration) Notes Start Date End Date Status Citalopram Hydrobromide 20 M G Tablet 1 tablet Orally Once a day; Duration: 30 day(s) Active traZODone HCl 50 MG Tablet as directed O della Once a day Active Levothyroxine Sodium 75 MCG Tablet 1 tablet Orally Once a day Active Cyclobenzaprine HCl 10 MG Tablet 1 tablet at bedtime as needed Orally Once a day Active buPROPion HCl 150 MG Tablet Extended Release 2 tablets Orally Twice a day Active Gabapentin 300 MG Capsule 2 capsule Oral ly twice a day up to 5 tablets daily Active Multi Vitamin/Minerals Tablet Orally Active Leg Cramp Relief Tablet Orally Active Immunizations Vaccine Route Administration Date Status Comme nts Influenza Unknown 03/17/2020 Administered Social History Social History Additional Details Category Social Info Options Details Miscellaneous: Marital status: 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 Section Notes: Nonsmoker; no sig alcohol Nonsmoker; no sig alcohol Problems Problem Type SNOMED Code ICD Code Onset Dates Problem Status W/U Status Risk Notes Problem Screening for malignant neoplasm of colon (955269591) Encounter for screening for malignant neoplasm of colon (Z12.11) Active confirmed Problem History of adenomatous polyp of colon (500347385) History of adenomatous polyp of colon (Z86.010) Active confirmed Problem Family History of Cancer of Colon (Situation) (899028454) Family history of colon cancer (Z80.0) Active confirmed Problem Gastroesophageal reflux disease (030419120) GERD (gastroesophag eal reflux disease) (K21.9) Active confirmed Plan Of Treatment Future Test Test Name Order Date COLONOSCOPY 03/18/2015 COLONOSCOPY 08/18/2020 Insurance Providers Payer Name Payer Address Payer Phone Subscriber Number Group Number Insured Name Patient Relationship to Insured Coverage Start Date Coverage End Date MEDICARE OF [place] [address] [place] [address] [id number] RYAN HERRERA Self - patient is the insured [facility] [address] [address] [place] [phone] [id number] RYAN HERRERA Self - patient is the insured Medical (General) History Medical History History ICD Code Tubular adenomas reoved in 2 and 2003, neg. colonoscopy in 09/2009 except for some diverticulosis and internal hemorrhoids Depression Denies NE,DM,CVA,renal disease Multiple sclerosis Hypothyroidism Asthma and Bronchitis; 2019 pneumonia-CO VID neg.12/2019 and 07/2020 Neg screening colonoscopy in 05/2015 Borderline sleep apnea but not using CPA P Surgical History Surgery Date(Month/Year) Hysterectomy for cervical cancer Appendectomy Tonsillectomy D&C
== END 2025-07-02 10:00 | disposition home or self-care (01) ==
LOC: HO.HMCHD 09:02
PROVIDERS: PCP Student in an Organized Health Care Education/Training Program; Visit Provider Student in an Organized Health Care Education/Training Program
DX: M25.552 Pain in left hip (principal); E03.8 Other specified hypothyroidism; M1A.9XX0 Chronic gout, unspecified, without tophus (tophi); G35.D Multiple sclerosis, unspecified; G43.009 Migraine without aura, not intractable, without status migrainosus; G47.01 Insomnia due to medical condition; R05.3 Chronic cough

== ENCOUNTER → 2025-07-02 10:14 | Outpatient (BNV) | payer MEDICARE, OTHER, SELFPAY | PROVIDERS: PCP Student in an Organized Health Care Education/Training Program; Visit Provider Radiology Diagnostic Radiology | DX: M25.552 Pain in left hip (principal) | CPT/HCPCS: 73502 ==